=== PATIENT | female | born 1960 | race African-American/Black ===

== ENCOUNTER 2020-05-04 08:01 | Outpatient (REF) | payer MEDICAID, SELFPAY ==
[2020-05-04 09:16] LABS: Estimated Average Glucose 146 mg/dL; Hemoglobin A1c % 6.7 %
[2020-05-04 09:18] LABS: Creatinine Urine 86.85 mg/dL; Microalbumin Urine < 5.0 mg/L
[2020-05-04 09:30] LABS: Alanine Aminotransferase 13 U/L (0-31); Albumin Level 4.3 g/dL (3.5-5.0); Alkaline Phosphatase 77 U/L (39-117); Aspartate Amino Transferase 15 U/L (5-31); Bilirubin Total 0.3 mg/dL (0.0-1.0); Blood Urea Nitrogen 13 mg/dL (9-16); Estimated Glomerular Filt Rate > 60; Glucose Random 122 mg/dL (60-115); HDL Cholesterol 40 mg/dL; Triglycerides 49 mg/dL
[2020-05-04 09:35] LABS: Free T4 (Free Thyroxine) 1.06 ng/dL (0.71-1.85); Vitamin D 25-OH Total 37.9 ng/mL (>30)
[2020-05-04 09:55] LABS: Anion Gap 10 (12-20); Carbon Dioxide 32 mmol/L (22-29); Chloride 102 mmol/L (96-108); Cholesterol 92 mg/dL; LDL Cholesterol Calculated 43 mg/dl; Potassium 4.1 mmol/l (3.3-5.1); Sodium 140 mmol/L (135-145)
== END 2020-05-04 08:02 | disposition home or self-care (01) ==
LOC: HO.LAB 08:01
PROVIDERS: PCP Internal Medicine; Visit Provider Internal Medicine
DX: E11.65 Type 2 diabetes mellitus with hyperglycemia (principal); I10 Essential (primary) hypertension; E78.5 Hyperlipidemia, unspecified; E04.2 Nontoxic multinodular goiter; E03.9 Hypothyroidism, unspecified; E55.9 Vitamin D deficiency, unspecified
CPT/HCPCS: 80053; 80061; 82043; 82306; 83036; 84439; 84443

== ENCOUNTER 2020-06-01 12:38 | Outpatient (REF) | payer MEDICAID, SELFPAY ==
--- NOTE | 2020-06-01 | MM_ITS ---
EXAMINATION: MM SCREENING DIGITAL BREAST TOMOSYNTHESIS, BILATERAL CLINICAL INFORMATION: Screening. Asymptomatic. The lifetime risk of breast cancer based on the Tyrer-Cuzick Model is 13.3%. COMPARISON: Mammography: May 14, 2019 and studies dating back to April 07, 2018 TECHNIQUE: Digital breast tomosynthesis is performed in both the craniocaudal and mediolateral oblique views along with computer-aided detection (CAD). Synthesized 2D images are generated from the tomosynthesis. Bilateral exaggerated craniocaudal views also performed. FINDINGS: The breasts are heterogeneously dense, which may obscure small masses (ACR BI-RADS breast composition Category c). There are no significant masses, abnormal calcifications, or other abnormalities. There is multiplicity and bilaterality of calcifications. MM/MM tomosynthesis screening BI IMPRESSION: There are no significant changes from prior study. ASSESSMENT: BI-RADS 1: Negative RECOMMENDATION: Routine annual mammography screening. This patient's information was entered into a reminder system with a target due date for their next mammogram.
== END 2020-06-01 12:39 | disposition home or self-care (01) ==
LOC: HO.MAMMO 12:38
PROVIDERS: PCP Internal Medicine; Visit Provider Internal Medicine
DX: R92.1 Mammographic calcification found on diagnostic imaging of breast (principal)
CPT/HCPCS: 77063; 77067

== ENCOUNTER → 2020-08-04 13:25 | Outpatient (BNVA) | payer MEDICAID, SELFPAY | PROVIDERS: PCP Internal Medicine; Referring Provider Internal Medicine; Visit Provider Internal Medicine | DX: E11.65 Type 2 diabetes mellitus with hyperglycemia (principal); Z79.4 Long term (current) use of insulin; E78.5 Hyperlipidemia, unspecified; I10 Essential (primary) hypertension; E04.2 Nontoxic multinodular goiter; E03.9 Hypothyroidism, unspecified; E55.9 Vitamin D deficiency, unspecified | CPT/HCPCS: 82947; 99212 ==

== ENCOUNTER 2021-01-03 16:13 | Outpatient (REF) | payer MEDICAID, SELFPAY ==
--- NOTE | ~2021-01-03 | CT_ITS ---
EXAMINATION: CT CHEST WITHOUT CONTRAST CLINICAL INFORMATION: COPD. Follow-up pulmonary nodules. COMPARISON: Previous chest CT scans most recent December 2019 TECHNIQUE: Multidetector volumetric CT imaging of the chest was done. Axial MIP volume rendering provided. Sagittal and coronal reformatted images were obtained. This CT examination was performed using dose optimization techniques as appropriate, variously including the following: *Automated exposure control *Adjustment of mA and/or kV according to patient size (this includes techniques or standardized protocols for targeted exams where dose is matched to indication/reason for exam; i.e. extremities or head) *Use of iterative reconstruction technique DLP: 118 mGy-cm FINDINGS: LUNGS: Exam is limited at the lung bases due to artifact from respiratory motion. There are innumerable bilateral pulmonary nodules that are stable. The largest nodule is calcified and measures 7 mm in the left lower lobe axial image 37 series 4. No new pulmonary nodules are seen. MEDIASTINUM: The mediastinum is normal. PLEURA: There is no pleural effusion. No pleural mass or thickening. AXILLA: No lymphadenopathy. UPPER ABDOMEN: There are small calcifications in the spleen probably related to old granulomatous disease. OSSEOUS STRUCTURES: Unremarkable. CT/CT chest wo con IMPRESSION: Stable pulmonary nodules from previous exam.
== END 2021-01-03 16:14 | disposition home or self-care (01) ==
LOC: HO.CT 16:13
PROVIDERS: Visit Provider Internal Medicine Pulmonary Disease
DX: J44.9 Chronic obstructive pulmonary disease, unspecified (principal)
CPT/HCPCS: 71250

== ENCOUNTER 2021-01-17 10:06 | Outpatient (REF) | payer MEDICAID, SELFPAY ==
[2021-01-17 11:25] LABS: Estimated Average Glucose 160 mg/dL; Hemoglobin A1c % 7.2 %
[2021-01-17 11:44] LABS: Alanine Aminotransferase 13 U/L (0-31); Albumin Level 4.3 g/dL (3.5-5.0); Alkaline Phosphatase 75 U/L (39-117); Anion Gap 14 (12-20); Aspartate Amino Transferase 16 U/L (5-31); Bilirubin Total 0.4 mg/dL (0.0-1.0); Blood Urea Nitrogen 10 mg/dL (9-16); Calcium 9.6 mg/dL (8.4-10.2); Carbon Dioxide 31 mmol/L (22-29); Chloride 101 mmol/L (96-108); Cholesterol 109 mg/dL; Estimated Glomerular Filt Rate > 60; Glucose Random 240 mg/dL (60-115); HDL Cholesterol 45 mg/dL; LDL Cholesterol Calculated 52 mg/dl; Potassium 4.5 mmol/L (3.3-5.1); Sodium 141 mmol/L (135-145); Total Protein 7.1 g/dL (6.5-8.0); Triglycerides 63 mg/dL
[2021-01-17 11:51] LABS: Free T4 (Free Thyroxine) 1.05 ng/dL (0.71-1.85); Thyroid Stimulating Hormone 1.01 uIU/mL (0.32-4.0)
[2021-01-18 08:16] LABS: LDL Cholesterol Direct 43 mg/dL (<100)
== END 2021-01-17 10:07 | disposition home or self-care (01) ==
LOC: HO.LAB 10:06
PROVIDERS: PCP Internal Medicine; Visit Provider Internal Medicine
DX: E11.65 Type 2 diabetes mellitus with hyperglycemia (principal); E03.9 Hypothyroidism, unspecified; Z79.4 Long term (current) use of insulin
CPT/HCPCS: 36415; 80053; 80061; 83036; 83721; 84439; 84443

== ENCOUNTER → 2021-04-07 14:08 | Outpatient (BNVA) | payer MEDICAID, SELFPAY | PROVIDERS: PCP Internal Medicine; Visit Provider Internal Medicine Pulmonary Disease | DX: R91.8 Other nonspecific abnormal finding of lung field (principal); J44.9 Chronic obstructive pulmonary disease, unspecified | CPT/HCPCS: 99212 ==

== ENCOUNTER 2021-06-27 12:17 | Outpatient (REF) | payer MEDICAID, SELFPAY ==
--- NOTE | ~2021-06-27 | MM_ITS ---
EXAMINATION: MM SCREENING DIGITAL BREAST TOMOSYNTHESIS, BILATERAL CLINICAL INFORMATION: Screening. Asymptomatic. The lifetime risk of breast cancer based on the Tyrer-Cuzick Model is 18.3%. COMPARISON: Mammography: 06/01/2020 and studies dating back to 04/07/2018. TECHNIQUE: Digital breast tomosynthesis is performed in both the craniocaudal and mediolateral oblique views along with computer-aided detection (CAD). Synthesized 2D images are generated from the tomosynthesis. FINDINGS: The breasts are heterogeneously dense, which may obscure small masses (ACR BI-RADS breast composition Category c). There is a stable parenchymal pattern of the left breast with no new abnormal dominant mass or suspicious grouping of microcalcifications. Within the superior lateral aspect of the right breast approximately 5 cm from the nipple, there is a 5 x 5 mm well-circumscribed density without calcifications or spiculation which was similar in size on prior examination of 06/01/2020 and measured approximately 5 x 3 mm size on study of 11/11/2018 and likely represents a small cyst. No suspicious grouping of microcalcifications identified. MM/MM tomosynthesis screening BI IMPRESSION: No specific mammographic findings to suggest malignancy. Probable right breast cyst. ASSESSMENT: BI-RADS 2: Benign RECOMMENDATION: Routine annual mammography screening. This patient's information was entered into a reminder system with a target due date for their next mammogram.
== END 2021-06-27 12:18 | disposition home or self-care (01) ==
LOC: HO.MAMMO 12:17
PROVIDERS: PCP Internal Medicine; Visit Provider Internal Medicine
DX: Z12.31 Encounter for screening mammogram for malignant neoplasm of breast (principal)
CPT/HCPCS: 77063; 77067

== ENCOUNTER → 2021-11-20 09:07 | Outpatient (BNVA) | payer MEDICAID, SELFPAY | PROVIDERS: PCP Internal Medicine; Visit Provider Internal Medicine | DX: Z13.89 Encounter for screening for other disorder (principal) ==

== ENCOUNTER 2021-11-23 09:21 | Outpatient (REF) | payer MEDICAID, SELFPAY ==
[2021-11-23 10:25] LABS: Alanine Aminotransferase 15 U/L (0-31); Albumin Level 4.3 g/dL (3.5-5.0); Alkaline Phosphatase 83 U/L (39-117); Anion Gap 13 (12-20); Aspartate Amino Transferase 18 U/L (5-31); Bilirubin Total 0.5 mg/dL (0.0-1.0); Blood Urea Nitrogen 12 mg/dL (9-16); Calcium 9.8 mg/dL (8.4-10.2); Carbon Dioxide 31 mmol/L (22-29); Chloride 99 mmol/L (96-108); Cholesterol 113 mg/dL; Estimated Glomerular Filt Rate > 60; Glucose Random 152 mg/dL (60-115); HDL Cholesterol 43 mg/dL; LDL Cholesterol Calculated 61 mg/dl; Sodium 139 mmol/L (135-145); Total Protein 7.2 g/dL (6.5-8.0); Triglycerides 48 mg/dL
[2021-11-23 10:31] LABS: Creatinine Urine 151.43 mg/dL; Microalbum/Creatinine Ratio Ur 5.9 ug/mg cr
[2021-11-23 10:45] LABS: Estimated Average Glucose 160 mg/dL; Hemoglobin A1c % 7.2 %
[2021-11-23 10:50] LABS: Free T4 (Free Thyroxine) 1.37 ng/dL (0.71-1.85); Thyroid Stimulating Hormone 1.85 uIU/mL (0.32-4.0); Vitamin D 25-OH Total 37.3 ng/mL (>30)
[2021-11-25 11:02] LABS: LDL Cholesterol Direct 53 mg/dL (<100)
== END 2021-11-23 09:22 | disposition home or self-care (01) ==
LOC: HO.LAB 09:21
PROVIDERS: PCP Internal Medicine; Visit Provider Internal Medicine
DX: E11.65 Type 2 diabetes mellitus with hyperglycemia (principal); E55.9 Vitamin D deficiency, unspecified; E03.9 Hypothyroidism, unspecified; E04.2 Nontoxic multinodular goiter; Z79.4 Long term (current) use of insulin
CPT/HCPCS: 36415; 80053; 80061; 82043; 82306; 83036; 83721; 84439; 84443

== ENCOUNTER 2021-12-11 12:32 | Outpatient (REF) | payer MEDICAID, SELFPAY ==
--- NOTE | ~2021-12-11 | US_ITS ---
EXAMINATION: US THYROID CLINICAL INFORMATION: Hypothyroidism, unspecified. COMPARISON: Thyroid ultrasound 01/26/2020 and 08/12/2018. CT soft tissue neck 12/03/2018. Ultrasound-guided thyroid biopsy 09/18/2018. TECHNIQUE: Linear transducer welch-scale and color Doppler examination with attention to the region of the thyroid. FINDINGS: SIZE: Measurements of the left lobe and nodules are given in sagittal, anteroposterior and transverse dimensions respectively. Right Thyroid Lobe: Surgically absent. Left Thyroid Lobe: 3.9 x 1.2 x 1.3 cm, volume 3.3 mL. Previously 3.8 x 1.3 x 1.7 cm, volume 4.4 mL. Parenchyma: The gland echotexture is homogeneous. Thyroid vascularity is normal. Isthmus: 0.3 cm in maximum AP dimension. Previously 0.2 cm. Estimated total number of nodules greater than or equal to 1 cm: 1. Gang Leader nodules are described as follows: 1. Location: Left upper pole. Size: 0.9 x 0.5 x 0.7 cm, volume 0.16 mL. Previously: 0.6 x 0.4 x 0.6 cm, volume 0.06 mL. Nodule characteristics: Composition: Spongiform (0). ACR TI-RADS total points: 0 ACR TI-RADS category: 1 Significant change in size (>/= 20% in 2 dimensions and minimal increase of 2 mm or 50% or greater increase in volume): None Change in features: Not applicable Change in ACR TI-RADS risk category: Not applicable 2. Location: Left upper pole. Size: 0.8 x 0.6 x 0.6 cm, volume 0.13 mL. Previously: 0.8 x 0.6 x 0.8 cm, volume 0.23 mL. Nodule characteristics: Composition: Solid (2). Echogenicity: Hyperechoic (1). Shape: Not taller than wide (0). Margins: Smooth (0). Echogenic Foci: None (0). ACR TI-RADS total points: 3 ACR TI-RADS category: 3 Significant change in size (>/= 20% in 2 dimensions and minimal increase of 2 mm or 50% or greater increase in volume): None Change in features: Not applicable Change in ACR TI-RADS risk category: Not applicable 3. Location: Left mid pole. Size: 1.0 x 0.6 x 1.0 cm, volume 0.28 mL. Previously: 1.1 x 0.6 x 0.8 cm, volume 0.28 mL. Nodule characteristics: Composition: Spongiform (0). ACR TI-RADS total points: 0 ACR TI-RADS category: 1 Significant change in size (>/= 20% in 2 dimensions and minimal increase of 2 mm or 50% or greater increase in volume): None Change in features: Not applicable Change in ACR TI-RADS risk category: Not applicable 4. Location: Left mid pole. Size: 0.6 x 0.4 x 0.6 cm, volume 0.08 mL. Previously: 0.8 x 0.5 x 0.7 cm, volume 0.13 mL. Nodule characteristics: Composition: Spongiform (0). ACR TI-RADS total points: 0 ACR TI-RADS category: 1 Significant change in size (>/= 20% in 2 dimensions and minimal increase of 2 mm or 50% or greater increase in volume): None Change in features: Not applicable Change in ACR TI-RADS risk category: Not applicable RIGHT THYROIDECTOMY BED: No focal lesion seen. NODES: No lymphadenopathy is seen in the tissue surrounding the thyroid gland. US/US thyroid IMPRESSION: Right thyroid lobe surgically removed. Small subcentimeter nodules in the left lobe, as described above, are nonsuspicious at this time based on ACR TI-RADS criteria. ACR TI-RADS RECOMMENDATION REFERENCE: Ultrasound-guided fine-needle aspiration, followup ultrasound, no further follow up. * TR1 (0 point) and TR 2 (2 points): No FNA or follow up * TR3 (3 points): FNA if more than or equal to 2.5 cm in maximum dimension, followup ultrasound in 1, 3 and 5 years if 1.5 to 2.4 cm in maximum dimension. * TR4 (4-6 points): FNA if more than or equal to 1.5 cm in maximum dimension, followup ultrasound in 1, 2, 3 and 5 years if 1 to 1.4 cm in maximum dimension. * TR5 (more than or equal to 7 points): FNA if more than or equal to 1 cm in maximum dimension, followup ultrasound every year for 5 years if 0.5 to 0.9 cm in maximum dimension. * TR3, TR4 or TR5 nodules that are below the size threshold for follow up receive no follow up.
== END 2021-12-11 12:33 | disposition home or self-care (01) ==
LOC: HO.US 12:32
PROVIDERS: PCP Internal Medicine; Visit Provider Internal Medicine
DX: E04.2 Nontoxic multinodular goiter (principal); E03.9 Hypothyroidism, unspecified
CPT/HCPCS: 76536

== ENCOUNTER 2022-01-28 12:57 | Emergency (ER) | payer MEDICAID, SELFPAY ==
[2022-01-28 13:39] VITALS: BP 130/63; PULSE 86; RESP 18; TEMP 36.1; O2SAT 98; BMI 24.4
--- NOTE | 2022-01-28 18:01 | ED.EXTPRO ---
HPI - Extremity Problem General Chief complaint: Extremity Problem Stated complaint: shoulder pain rad. to L arm Time Seen by Provider: 01/28/22 17:44 History of Present Illness HPI Narrative: Patient complains of left-sided neck left trapezius pain radiating down left arm to the fingers with paresthesias but no numbness no loss of sensation no weakness no new injury no fevers She has had this problem off and on for some time and had a nerve conduction study done results of which she said showed a pinched nerve Related Data Home Medications Medication Instructions Recorded Confirmed cholecalciferol (vitamin D3) 25 25 mcg PO DAILY 08/04/20 11/20/21 mcg (1,000 unit) capsule gabapentin 300 mg capsule 300 mg PO BEDTIME 08/04/20 11/20/21 lisinopril 10 mg tablet 10 mg PO DAILY 08/04/20 11/20/21 metformin 1,000 mg tablet 1,000 mg PO BID 08/04/20 11/20/21 Previous Rx's Medication Instructions Recorded pen needle, diabetic 32 gauge x #100 ea 06/08/2008/01 (BD Ultra-Fine Micro Pen Needle) albuterol sulfate 90 mcg/actuation 2 puff PO Q2H PRN for wheezing 02/13/21 aerosol inhaler (ProAir HFA) #8.5 grams insulin aspart U-100 100 unit/mL See Rx Instructions subcut 06/20/21 (3 mL) subcutaneous pen (Novolog .COMPLEX 30 days #30 mL Flexpen U-100 Insulin aspart) insulin glargine 100 unit/mL (3 14 unit (0.14 mL) subcut DAILY 30 06/20/21 mL) subcutaneous pen (Lant days #4.2 mL Solostar U-100 Insulin) lancets 33 gauge (TRUEplus Lancets) 1 gauge miscellaneous QID for 09/20/21 diabetes mellitus 30 days #100 ea blood sugar diagnostic (FreeStyle 1 strip miscellaneous QID for 10/03/21 Lite Strips) diabetes mellitus 30 days #150 strips atorvastatin 40 mg tablet 40 mg PO DAILY 30 days #30 tabs 12/14/21 levothyroxine 50 mcg tablet 50 mcg PO DAILY 30 days #30 tabs 12/14/21 acetaminophen 500 mg tablet 1,000 mg PO QID PRN pain #30 tabs 01/28/22 cyclobenzaprine 5 mg tablet 5 mg PO TID PRN muscle spasm #10 01/28/22 tabs oxycodone 5 mg tablet 5 mg PO Q6H PRN pain #14 tabs 01/28/22 Allergies Allergy/AdvReac Type Severity Reaction Status Date / Time meperidine [From DEMEROL] Allergy Intermediate HALLUCINATI Verified 01/28/22 13:39 ONS Review of Systems Review of Systems: Positive for left-sided neck pain with tingling radiating to fingers Negatives are no fever no chills no dizziness no weakness no headache no loss of sensation no muscle weakness no difficulty walking, no chest pain no shortness of breath no abdominal pain no nausea vomiting no changes to bowel or bladder no dysuria no frequency no incontinence, no skin rash Yes all other systems are reviewed and are negative [facility] Past Medical History Source: nursing notes reviewed Medical History HLD (hyperlipidemia) HTN (hypertension) Hypothyroidism Multinodular thyroid T2DM (type 2 diabetes mellitus) Vitamin D deficiency Surgical History History of thyroid surgery Hx of colonoscopy Hx of eye surgery Hx of hand surgery Hx of tubal ligation Family History Family History Father Diabetes CVD (cardiovascular disease) Myocardial infarction Mother Diabetes CVD (cardiovascular disease) Social History Social History Advance Directives: No Advance Directives Information Provided: Yes Physical Exam Vital Signs: Vital Signs: Last Vital Signs Temp 97.0 F 01/28/22 13:39 Pulse 86 01/28/22 13:39 Resp 18 01/28/22 13:39 BP 130/63 01/28/22 13:39 Pulse Ox 98 01/28/22 13:39 BMI result Body Mass Index 24.4 General appearance no distress Head is normocephalic atraumatic Neck is limited range of motion with tenderness on the left trapezius and left lateral neck no midline bony tenderness, skin of the neck is normal no rash Chest clear to auscultation bilateral Heart no murmur Abdomen soft nontender Extremities full range of motion x4 Neuro neurobiologist strength is 5/5 symmetrical both hands Sensation is full intact and symmetrical in both hands, gait and balance are normal, motor is 5/5 x4 in all extremities Course Course Course Narrative: Patient with history of cervical radiculopathy is treated with pain medicine and muscle relaxer, no neurologic deficits no changes to bowel or bladder no acute injury and she will follow with her doctor Discharge Plan Discharge Clinical Impression: Cervical radiculopathy Patient Disposition: Home, Self-Care Additional Instructions: Pain going from left neck down arm is probably a pinched nerve in your neck Follow with primary doctor Return any time for any muscle weakness any worse condition any concerns Prescriptions: New acetaminophen 500 mg tablet 1,000 mg PO QID PRN (Reason: pain) Qty: 30 0RF cyclobenzaprine 5 mg tablet 5 mg PO TID PRN (Reason: muscle spasm) Qty: 10 0RF oxycodone 5 mg tablet 5 mg PO Q6H PRN (Reason: pain) Qty: 14 0RF Rx Instructions: Partial Fill upon patient request. Narcotic medication will cause drowsiness no driving for 6 hours after taking No Action (DME) pen needle, diabetic [BD Ultra-Fine Micro Pen Needle] 32 gauge x 1/4 needle See Rx Instructions .ROUTE .MEDSUPPLY Qty: 100 11RF Rx Instructions: 4x daily albuterol sulfate [ProAir HFA] 90 mcg/actuation HFA aerosol inhaler 2 puff PO Q2H PRN (Reason: for wheezing) Qty: 8.5 6RF Lantus Solostar U-100 Insulin 100 unit/mL (3 mL) insulin pen 14 unit subcut DAILY 30 Days Qty: 4.2 11RF insulin aspart U-100 [Novolog Flexpen U-100 Insulin] 100 unit/mL (3 mL) insulin pen See Rx Instructions subcut .COMPLEX 30 Days Qty: 30 11RF Rx Instructions: 4 units with breakfast, 6 units with lunch, 9 units with dinner and 2 units with snacks. use up to 5 times daily subcut; lancets [TRUEplus Lancets] 33 gauge misc 1 gauge miscellaneous QID 30 Days Qty: 100 11RF FreeStyle Lite Strips Strip 1 strip miscellaneous QID 30 Days Qty: 150 11RF atorvastatin 40 mg tablet 40 mg PO DAILY 30 Days Qty: 30 11RF levothyroxine 50 mcg tablet 50 mcg PO DAILY 30 Days Qty: 30 11RF metformin 1,000 mg tablet 1,000 mg PO BID lisinopril 10 mg tablet 10 mg PO DAILY cholecalciferol (vitamin D3) 25 mcg (1,000 unit) capsule 25 mcg PO DAILY gabapentin 300 mg capsule 300 mg PO BEDTIME Interventions: ED Discharge Assessment Last Done: 01/28/22 18:47 Discharge Date/Time: 01/28/22 18:49
== END 2022-01-28 18:49 | disposition home or self-care (01) ==
PROVIDERS: Emergency Provider Emergency Medicine Emergency Medical Services; PCP Internal Medicine
DX: M54.2 Cervicalgia (principal); M79.602 Pain in left arm; Z79.899 Other long term (current) drug therapy
CPT/HCPCS: 99282; 99283

== ENCOUNTER 2022-02-08 08:17 | Outpatient (REF) | payer MEDICAID, SELFPAY | END 2022-02-08 08:18 | disposition home or self-care (01) | LOC: HO.LAB 08:17 | PROVIDERS: Visit Provider Obstetrics & Gynecology | DX: R87.810 Cervical high risk human papillomavirus (HPV) DNA test positive (principal) | CPT/HCPCS: 57454; 88305 ==

== ENCOUNTER → 2022-03-06 13:50 | Outpatient (BNVA) | payer MEDICAID, SELFPAY | PROVIDERS: PCP Internal Medicine; Visit Provider Obstetrics & Gynecology | DX: R87.810 Cervical high risk human papillomavirus (HPV) DNA test positive (principal); Z71.2 Person consulting for explanation of examination or test findings | CPT/HCPCS: 99212 ==

== ENCOUNTER 2022-03-13 16:14 | Outpatient (REF) | payer MEDICAID, SELFPAY ==
--- NOTE | ~2022-03-13 | CT_ITS ---
EXAMINATION: CT CHEST WITHOUT CONTRAST CLINICAL INFORMATION: Abnormal findings of lung field. COMPARISON: None CT chest 01/03/2021. TECHNIQUE: Multidetector volumetric CT imaging of the chest was done. Axial MIP volume rendering provided. Sagittal and coronal reformatted images were obtained. This CT examination was performed using dose optimization techniques as appropriate, variously including the following: *Automated exposure control *Adjustment of mA and/or kV according to patient size (this includes techniques or standardized protocols for targeted exams where dose is matched to indication/reason for exam; i.e. extremities or head) *Use of iterative reconstruction technique DLP: 146 mGy-cm FINDINGS: AIR BRAKE RIGGER: Moderately expanded lungs. LUNGS: There are multiple bilateral lung nodules. Some of the largest nodules are mentioned below. A 4 mm noncalcified nodule right upper lobe axial image 118/7, 8mm calcified nodule left lower lobe axial image 267/7. MEDIASTINUM: The thyroid lobes are symmetrical. The central trachea and the bronchi are widely patent. Heart size and the great vessels are normal caliber. No abnormal size mediastinal or hilar lymphadenopathy seen. PLEURA: There is no pleural effusion. No pleural mass or thickening. AXILLA: No lymphadenopathy. UPPER ABDOMEN: Visualized liver, spleen and bilateral adrenal glands unremarkable. OSSEOUS STRUCTURES: No lytic or sclerotic process seen. CT/CT chest wo con IMPRESSION: Multiple calcified and noncalcified nodules. The largest noncalcified nodule is 8 mm left lower lobe previously measured 7 mm. No new nodules seen. No abnormal mediastinal or axillary lymphadenopathy. Fleischner guidelines were followed.
== END 2022-03-13 16:15 | disposition home or self-care (01) ==
LOC: HO.CT 16:14
PROVIDERS: Visit Provider Internal Medicine Pulmonary Disease
DX: R91.8 Other nonspecific abnormal finding of lung field (principal)
CPT/HCPCS: 71250

== ENCOUNTER → 2022-04-03 11:15 | Outpatient (BNVA) | payer MEDICAID, SELFPAY | PROVIDERS: PCP Internal Medicine; Visit Provider Surgery | DX: D17.1 Benign lipomatous neoplasm of skin and subcutaneous tissue of trunk (principal) | CPT/HCPCS: 99202 ==

== ENCOUNTER 2022-05-08 13:43 | Outpatient (REF) | payer MEDICAID, SELFPAY ==
[2022-05-08 13:49] VITALS: BP 140/54; PULSE 100; RESP 16; TEMP 36.2; O2SAT 97
[2022-05-08 13:52] VITALS: BMI 25.3
[2022-05-08 14:45] VITALS: BP 138/73; PULSE 90; RESP 16; O2SAT 97
--- NOTE | 2022-05-08 14:47 | W.PM.OPN ---
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 Operative findings: 2 cm lipoma posterior shoulder Specimen: lipoma posterior shoulder Estimated blood loss: less than 1 mL Complications: non Procedure details: patient was brought to the minor surgery suite placed in a right lateral decubitus position. The site of surgery confirmed by the patient in the left posterior shoulder. After assuring informed consent the skin was prepped with Betadine and draped in a sterile fashion. Local anesthesia was then infiltrated over previous incision in a transverse fashion. This is then incised with the scalpel carried down to the subcutaneous tissue. The lipoma was immediately identified. Metzenbaum scissors was used to dissect the lipoma from the surrounding subcutaneous tissue. The lesion was passed off the table and sent to pathology for further examination. Deep subcutaneous tissue was reapproximated using interrupted 3-0 Polysorb sutures. Dermis was reapproximated using interrupted 3-0 Polysorb sutures. Skin was then closed using a running subcuticular 4-0 Polysorb suture. Steri-Strips, 2 x 2 gauze and Tegaderm were then applied. The patient tolerated the procedure well. She was discharged to home in stable condition.
== END 2022-05-08 13:44 | disposition home or self-care (01) ==
LOC: HO.MS 13:43
PROVIDERS: PCP Internal Medicine; Visit Provider Surgery
PROC: (CPT 23075; principal; 2022-05-08 14:10)
DX: D17.1 Benign lipomatous neoplasm of skin and subcutaneous tissue of trunk (principal)
CPT/HCPCS: 23075; 88304

== ENCOUNTER → 2022-05-15 12:57 | Outpatient (BNVA) | payer MEDICAID, SELFPAY | PROVIDERS: PCP Internal Medicine; Visit Provider Surgery | DX: Z48.817 Encounter for surgical aftercare following surgery on the skin and subcutaneous tissue (principal); Z87.2 Personal history of diseases of the skin and subcutaneous tissue | CPT/HCPCS: 99211 ==

== ENCOUNTER 2022-07-05 14:04 | Outpatient (REF) | payer MEDICAID, SELFPAY ==
[2022-07-05 17:12] LABS: Alanine Aminotransferase 14 U/L (0-31); Albumin Level 4.3 g/dL (3.5-5.0); Alkaline Phosphatase 87 U/L (39-117); Anion Gap 13 (12-20); Aspartate Amino Transferase 15 U/L (5-31); Bilirubin Total 0.2 mg/dL (0.0-1.0); Blood Urea Nitrogen 14 mg/dL (9-16); Calcium 9.5 mg/dL (8.4-10.2); Carbon Dioxide 30 mmol/L (22-29); Chloride 103 mmol/L (96-108); Estimated Glomerular Filt Rate > 60; Free T4 (Free Thyroxine) 1.07 ng/dL (0.71-1.85); Glucose Random 108 mg/dL (60-115); Potassium 4.5 mmol/L (3.3-5.1); Sodium 141 mmol/L (135-145)
== END 2022-07-05 14:05 | disposition home or self-care (01) ==
LOC: HO.LAB 14:04
PROVIDERS: PCP Internal Medicine; Visit Provider Internal Medicine
DX: E11.65 Type 2 diabetes mellitus with hyperglycemia (principal); E03.9 Hypothyroidism, unspecified; E04.2 Nontoxic multinodular goiter; E78.5 Hyperlipidemia, unspecified; E55.9 Vitamin D deficiency, unspecified; I10 Essential (primary) hypertension; Z79.4 Long term (current) use of insulin
CPT/HCPCS: 36415; 80053; 82947; 83036; 84439; 84443; 99212

== ENCOUNTER 2022-07-24 12:59 | Outpatient (REF) | payer MEDICAID, SELFPAY ==
[2022-07-24 13:05] VITALS: BP 137/61; PULSE 83; RESP 16; TEMP 37.2; O2SAT 98
[2022-07-24 13:06] VITALS: BMI 24.4
[2022-07-24 13:53] VITALS: BP 138/68; PULSE 80; RESP 16; O2SAT 95
--- NOTE | 2022-07-24 16:20 | W.PM.OPN ---
Operative Note Operative Note Date of Service: 07/24/22 Narrative: Preoperative diagnosis: Lipoma x2 left arm Postoperative diagnosis: Same Procedure: Excision of lipoma x2 left arm Surgeon: Florentin Gomez MD Manager Multicultural: None Anesthesia: Sensorcaine 0.5% with epinephrine Indications for procedure: 61-year-old female patient with complaints of left shoulder pain and 2 palpable soft tissue subcutaneous nodules suggestive of lipomas located in the right arm including 1 in the upper arm and a 2nd in the medial forearm. Both measure approximately 1.5 cm in diameter. Operative findings: Lipoma of left arm x2 each measuring 1.5 cm Specimen: Lipoma x2 left arm Estimated blood loss: Less than 1 mL Complications: None Procedure details: Patient was brought to the minor surgery suite placed in a supine position. The site of surgery was confirmed by the patient in the left arm and circled with a skin scribe. After assuring informed consent with a packaging line attendant, the skin was prepped with Betadine and draped in a sterile fashion. Beginning with the forearm lesion local anesthesia was infiltrated into the skin and a longitudinal incision measuring approximately 1.5 cm was made with the 15 blade scalpel. Incision was carried out through subcutaneous tissue up to the lipoma anterior surface. This was then grasped with a Allis clamp. The lipoma was then sharply dissected using a Metzenbaum scissors from the surrounding subcutaneous tissue. The lesion was excised and sent to pathology for further examination. After assuring adequate hemostasis the skin was closed using a running subcuticular 5 0 Polysorb suture. Steri-Strips and Tegaderm were then applied. Attention was then directed to the upper arm lesion on the left side. This was located more posterior. The skin was re-prepped with Betadine and draped in a sterile fashion. Local anesthesia was then infiltrated in a longitudinal fashion over the lipoma. Incision was then made with a 15 blade and carried out through subcutaneous tissue. The lipoma was identified and grasped with an Allis clamp. Sharp dissection was then used to dissect the lesion from the surrounding subcutaneous tissue. This was passed off the table and sent to pathology for further examination. After assuring adequate hemostasis the skin was closed using a subcuticular 5 0 Polysorb suture. Steri-Strips, 2 x 2 gauze and Tegaderm were then applied. The patient tolerated the procedure well. She was discharged to home in stable condition.
== END 2022-07-24 13:00 | disposition home or self-care (01) ==
LOC: HO.MS 12:59
PROVIDERS: PCP Internal Medicine; Visit Provider Surgery
PROC: (CPT 25075; principal; 2022-07-24 13:00)
DX: D17.22 Benign lipomatous neoplasm of skin and subcutaneous tissue of left arm (principal)
CPT/HCPCS: 25075; 24075; 88304

== ENCOUNTER → 2022-08-02 09:45 | Outpatient (BNVA) | payer MEDICAID, SELFPAY | PROVIDERS: PCP Internal Medicine; Referring Provider Internal Medicine; Visit Provider Physician Assistant Surgical | DX: Z48.89 Encounter for other specified surgical aftercare (principal) | CPT/HCPCS: 99211 ==

== ENCOUNTER → 2022-09-03 11:45 | Outpatient (BNVA) | payer MEDICAID, SELFPAY | PROVIDERS: PCP Internal Medicine; Visit Provider Internal Medicine | DX: E04.2 Nontoxic multinodular goiter (principal) | CPT/HCPCS: 99212 ==

== ENCOUNTER 2022-10-12 10:00 | Outpatient (RCR) | payer MEDICAID, SELFPAY ==
[2022-09-06 10:11] VITALS: BP 133/77; PULSE 88
== END 2022-10-12 15:13 | disposition home or self-care (01) ==
LOC: HO.PT 10:00
PROVIDERS: PCP Internal Medicine; Visit Provider Registered Nurse
DX: M25.512 Pain in left shoulder (principal)
CPT/HCPCS: 97110; 97112; 97140; 97161; 97530

== ENCOUNTER 2022-11-22 13:00 | Outpatient (RCR) | payer MEDICAID, SELFPAY | END 2022-12-05 10:30 | disposition home or self-care (01) | LOC: HO.OT 13:00 | PROVIDERS: PCP Registered Nurse; Visit Provider Registered Nurse | DX: M25.541 Pain in joints of right hand (principal); M25.542 Pain in joints of left hand | CPT/HCPCS: 97035; 97110; 97140; 97167; 97760 ==

== ENCOUNTER 2022-12-07 08:12 | Outpatient (REF) | payer MEDICAID, SELFPAY ==
--- NOTE | ~2022-12-07 | XR_ITS ---
EXAMINATION: XR SHOULDER, LEFT CLINICAL INFORMATION: Pain COMPARISON: Previous x-ray December 2018 TECHNIQUE: Three views of the left shoulder. FINDINGS: The bones and soft tissues are normal. No fracture. Glenohumeral and acromioclavicular alignment is anatomic with normal joint space. No abnormal soft tissue calcifications. XR/XR shoulder LT min 2V IMPRESSION: Normal left shoulder.
== END 2022-12-07 08:13 | disposition home or self-care (01) ==
LOC: HO.HOSX 08:12
PROVIDERS: Visit Provider Physician Assistant
DX: M54.12 Radiculopathy, cervical region (principal)
CPT/HCPCS: 73030; 99212

== ENCOUNTER 2023-01-30 08:25 | Outpatient (REF) | payer MEDICAID, SELFPAY | END 2023-01-30 08:26 | disposition home or self-care (01) | LOC: HO.NEURO 08:25 | PROVIDERS: PCP Registered Nurse; Visit Provider Physician Assistant | DX: M54.12 Radiculopathy, cervical region (principal) | CPT/HCPCS: 95885; 95910 ==

== ENCOUNTER 2023-02-06 13:04 | Outpatient (AMB) | payer MEDICAID, SELFPAY ==
[2023-02-06 13:14] VITALS: BMI 24.4
--- NOTE | 2023-02-06 13:14 | MHC.OFFVIS ---
Intake Vital Signs 02/06/23 13:14 Height 5 ft 3 in Weight 138 lb BMI 24.4 Intake Visit Reasons: New Prob- Trigger middle finger of right hand Intake Note: Renetta 62 yr old right hand dominant female, presents today for her right middle finger. States she is having locking of her finger for many years now. States she had a trigger release 12 yrs ago and is still having pain in finger. States her pain is severe and locks very frequently. REports swelling due to locking and popping it back often. Patients states she is scare of having surgery due to con't pain from her 1st trigger release. Patient is diabetic. Last A1C done 06/2022 was a 6.6. Allergies meperidine [From DEMEROL] Allergy (Intermediate, Verified 02/06/23 13:18) HALLUCINATIONS HPI New Prob- Trigger middle finger of right hand HPI Details Renetta is a 62 year old right hand dominant Vietnamese speaking woman who presents with complaint of of several years painful locking of the right middle finger. She reports a hx of left middle finger trigger release in ~2010, perhaps earlier. She says her right middle finger continues to lock painfully, and gets swollen at times due to this.She says she has tried OT hands therapy and was told to not bend her finger anymore due to her locking. She complains of multiple pain generators in her body, especially her left shoulder and neck. She says she has a nerve impingement in her shoulder which she thinks was caused by her left middle trigger finger release. She is unsure about having surgery again as she is scared of developing any new pain. She is a Diabetic, this is well-controlled [facility] Medical History HLD (hyperlipidemia) HTN (hypertension) Hypothyroidism Multinodular thyroid T2DM (type 2 diabetes mellitus) Vitamin D deficiency Surgical History History of excision of mass (05/08/22) History of lipoma History of thyroid surgery Hx of colonoscopy Hx of eye surgery Hx of hand surgery Hx of tubal ligation Family History Father Diabetes CVD (cardiovascular disease) Myocardial infarction Mother Diabetes CVD (cardiovascular disease) Social History Household Members Other:: son Housing: Apartment Alcohol intake: never Patient Tobacco Use Status: Current everyday Tobacco user Tobacco use type: Cigarette Cigarettes Per Day: 8 Years Smoked: 40 Sexual orientation: Straight/Heterosexual Gender identity: Female Review of Systems Const All systems reviewed & are unremarkable except as noted in HPI and below Physical Exam Vital Signs: BMI result Body Mass Index 24.4 Const General: cooperative, healthy appearing and no acute distress Orientation/consciousness: patient oriented x3 HEENT Head: Yes normocephalic and Yes atraumatic Eyes EOM: EOMs intact bilaterally Resp Effort & Inspection: normal respiratory effort and able to speak in complete sentences Cardio Jugular venous distension: no JVD Skin General skin exam: turgor normal Rashes: no rashes Neuro General: patient oriented x3 Extrem Other: Evaluation of Right Upper Extremity: The patient is alert, oriented, and in no acute distress Neuro: Median, Ulnar, Radial nerves motor and sensory intact and sensation is normal to the tips of all digits Vascular: Cap refill brisk ROM: She can make a fist and extend all her digits Visible and palpable locking and catching of the middle finger Tender over the a1 edilson of the middle finger Skin: No lacerations or abrasions. General: No Ecchymosis. No Erythema or evidence of infection. Nerve Conduction Study: Impression: Normal motor and sensory NCS if upper extremity with no evidence of carpal tunnel syndrome or cubital tunnel syndrome Normal EMG of the left C5-T1 innervated muscles Dr. Norris 01/30/23 Psych Appearance: grossly normal Affect: normal affect Attitude: cooperative Assessment & Plan Assessment & Plan (1) Trigger middle finger of right hand: Code(s): M65.331 - Trigger finger, right middle finger (2) T2DM (type 2 diabetes mellitus): Code(s): E11.9 - Type 2 diabetes mellitus without complications Qualifiers: Diabetes mellitus complication status: with hyperglycemia Diabetes mellitus [facility] insulin use: with termite control technician use Qualified Code(s): E11.65 - Type 2 diabetes mellitus with hyperglycemia; Z79.4 - alf (current) use of insulin Plan Assessment & Plan: 1. Right middle finger trigger finger I educated her about this condition I discussed operative and non-operative treatment options The patient would like to proceed with surgery. The risks and benefits of operative treatment were discussed with the patient and the patient wishes to proceed with surgery. These risks include, but are not limited to risk of damage to blood vessels, nerves, tendons, infection, recurrence, incomplete relief of preoperative symptoms, persistent pain, possible need for further surgery and the risks associated with regional blocks and anesthesia. The plan is to take the patient to the operating room sometime in the next few weeks for the following procedures: 1. Right middle trigger finger release, under local All of the preoperative paperwork including the consent was filled out today. All the patient's questions were answered. The patient understands that they will be contacted by our dental scheduler soon to schedule this procedure She denies blood thinners, asthma, heart, lung, kidney issues She is a Diabetic, her most recent HgA1c from 06/2022 was 6.6%. She will need an updated A1c that is <8.0% 2. History of left middle trigger finger, S/P release DOS: ~2010, but may be earlier as the patient is unsure. No locking or catching Scribed for Deb Christina MD by Simeon Jurado, center medical and lab director, on [ ] at [ ], EST. Coding Level of Care Code Est Pt Level 4 (90764) Diagnoses Trigger middle finger of right hand M65.331 T2DM (type 2 diabetes mellitus) E11.65; Z79.4 Diabetes mellitus complication status: with hyperglycemia Diabetes mellitus [facility] insulin use: with termite control technician use
== END 2023-02-06 13:38 | disposition home or self-care (01) ==
PROVIDERS: PCP Registered Nurse; Visit Provider Orthopaedic Surgery
DX: M65.331 Trigger finger, right middle finger (principal); E11.65 Type 2 diabetes mellitus with hyperglycemia; Z79.4 Long term (current) use of insulin
CPT/HCPCS: 99214

== ENCOUNTER → 2023-02-06 13:04 | Outpatient (BNVA) | payer MEDICAID, SELFPAY | PROVIDERS: PCP Registered Nurse; Visit Provider Orthopaedic Surgery | DX: M65.331 Trigger finger, right middle finger (principal); E11.65 Type 2 diabetes mellitus with hyperglycemia; Z79.4 Long term (current) use of insulin | CPT/HCPCS: 99212 ==

== ENCOUNTER 2023-02-14 11:17 | Day surgery (SDC) | payer MEDICAID, SELFPAY ==
--- NOTE | 2023-02-14 10:26 | W.PM.OPN ---
Operative Note Operative Note Date of Service: 02/14/23 Narrative: Operative Note Preop diagnosis: 1. right middle finger Trigger finger Postop diagnosis: 1. right middle finger Trigger finger Procedure: 1. right middle finger A1 edilson release Surgeon: Deb Christina MD Anesthesia: local block using 1% lidocaine with epinephrine Findings: No locking or catching after A1 edilson release EBL: Less than 5 mL Tourniquet time: None Specimens: None Complications: None Disposition: Brought to recovery room in stable condition Plan: Follow-up for 10-14 days for wound check and suture removal Indications: The patient is 62 years old, with a right middle finger trigger finger that has been unresponsive to nonoperative management. The risks and benefits of operative treatment including but not limited to risk of damage to blood vessels, nerves, tendons, infection, persistent pain, persistent symptoms, recurrence or possible need for additional surgery were discussed with the patient and the patient wishes to proceed with surgery. Procedure: Once consent was obtained a local block was performed in the preop area using a combination of 1% lidocaine with epinephrine. The patient was then brought back to the operating suite and placed on the operative table in supine position. The right upper extremity was prepped and draped in a standard surgical fashion. Once assured that we had a good block, a 1.5 cm oblique incision was made centered over the A1 edilson of the right middle finger . The incision was made through the skin to the subcutaneous tissues using a #15 blade. Careful dissection was made down to the level of the A1 edilson using tenotomy scissors, with care being taken to protect the nearby neurovascular structures. A longitudinal incision was made in the A1 edilson 1st using a #15 blade, then using tenotomy scissors under direct visualization. The A1 edilson was noted to be thickened. Following our A1 edilson release, we no longer saw any locking or catching of the digit with flexion and extension. Once satisfied with our A1 edilson release the wound was copiously irrigated with normal saline and hemostasis was obtained with a brief period of local pressure. The skin edges were reapproximated with some 5.0 nylon suture material and a sterile dressing was applied. The patient appears to have tolerated the procedure well and with no complications. All digits were well vascularized at the conclusion of the case.
--- NOTE | 2023-02-14 12:36 | MHC.SHP ---
Pre-Procedural Eval Section A Date of Service: 02/14/23 The patient is an INPATIENT: No Changes since office visit: No Cold of Flu in the past 2 weeks, No New Medical Problems, No Changes in Medication and No Patient answered all questions The History & Physical has been completed within 30 days and I have reviewed it.: Yes Section B Chief Complaint: Trigger finger, right middle finger Allergies: Allergies Allergy/AdvReac Type Severity Reaction Status Date / Time meperidine [From DEMEROL] Allergy Intermediate HALLUCINATI Verified 02/06/23 13:18 ONS Plan I have reviewed the history and physical and performed a pertinent physical examination on my patient. No changes have occurred unless specified. Time Spent With Patient Time: Total time managing care of this patient today ____ minutes.
[2023-02-14 12:39] VITALS: BMI 27.8
[2023-02-14 14:28] VITALS: BP 133/70; PULSE 69; RESP 18; O2SAT 96
== END 2023-02-14 14:42 | disposition home or self-care (01) ==
PROVIDERS: PCP Registered Nurse; Visit Provider Orthopaedic Surgery
PROC: (CPT 26055; principal; 2023-02-14 13:10)
DX: M65.331 Trigger finger, right middle finger (principal); I10 Essential (primary) hypertension; E11.65 Type 2 diabetes mellitus with hyperglycemia; Z79.4 Long term (current) use of insulin; Z88.5 Allergy status to narcotic agent
CPT/HCPCS: 26055; J0171

== ENCOUNTER → 2023-02-14 11:17 | Outpatient (BNV) | payer MEDICAID, SELFPAY | PROVIDERS: PCP Registered Nurse; Visit Provider Orthopaedic Surgery | DX: M65.331 Trigger finger, right middle finger (principal) | CPT/HCPCS: 26055 ==

== ENCOUNTER 2023-02-22 11:20 | Outpatient (REF) | payer MEDICAID, SELFPAY ==
--- NOTE | ~2023-02-22 | US_ITS ---
EXAMINATION: BREAST ULTRASOUND SCREENING BILATERAL CLINICAL INFORMATION: Screening. Diffuse bilateral breast pain which is chronic. Patient declined screening mammogram. COMPARISON: No recent previous examinations for comparison. TECHNIQUE: Both breasts were scanned with grayscale and color Doppler sonography. FINDINGS: The left breast is sonographically normal. In the right breast, there are a few, scattered, subcentimeter cysts which are benign. Both axillae normal. US/US breast RT complete mammo IMPRESSION: No sonographic evidence of malignancy. The patient is encouraged to have an annual screening mammogram which she can tolerate it. ASSESSMENT: BI-RADS BI-RADS 2 - Benign Findings RECOMMENDATION: Routine annual mammography screening. 1 year F/U This examination should not preclude the clinical evaluation of a suspicious palpable abnormality. This patient's information was entered into a reminder system with a target due date for their next mammogram.
--- NOTE | ~2023-02-22 | US_ITS ---
EXAMINATION: BREAST ULTRASOUND SCREENING BILATERAL CLINICAL INFORMATION: Screening. Diffuse bilateral breast pain which is chronic. Patient declined screening mammogram. COMPARISON: No recent previous examinations for comparison. TECHNIQUE: Both breasts were scanned with grayscale and color Doppler sonography. FINDINGS: The left breast is sonographically normal. In the right breast, there are a few, scattered, subcentimeter cysts which are benign. Both axillae normal. US/US breast LT complete mammo IMPRESSION: No sonographic evidence of malignancy. The patient is encouraged to have an annual screening mammogram which she can tolerate it. ASSESSMENT: BI-RADS BI-RADS 2 - Benign Findings RECOMMENDATION: Routine annual mammography screening. 1 year F/U This examination should not preclude the clinical evaluation of a suspicious palpable abnormality. This patient's information was entered into a reminder system with a target due date for their next mammogram.
== END 2023-02-22 11:21 | disposition home or self-care (01) ==
LOC: HO.MAMMO 11:20
PROVIDERS: PCP Registered Nurse; Visit Provider Registered Nurse
DX: Z12.39 Encounter for other screening for malignant neoplasm of breast (principal)
CPT/HCPCS: 76641

== ENCOUNTER → 2023-02-22 12:00 | Outpatient (BNV) | payer MEDICAID, SELFPAY | PROVIDERS: PCP Registered Nurse; Visit Provider Radiology Diagnostic Radiology | DX: N64.4 Mastodynia (principal) | CPT/HCPCS: 76641 ==

== ENCOUNTER 2023-02-27 13:12 | Outpatient (AMB) | payer MEDICAID, SELFPAY ==
[2023-02-27 13:24] VITALS: BMI 27.8
--- NOTE | 2023-02-27 13:24 | MHC.OFFVIS ---
Intake Vital Signs 02/27/23 13:24 Height 5 ft 3 in Weight 157 lb BMI 27.8 Intake Visit Reasons: PO RT MF Trigger Release 02/14/23AR/EMG rev Intake Note: Renetta 62 yr old female presents today for her P/O visit for her right MF trigger release and also to have her EMG review. States she is not able to make a full close fist. Allergies meperidine [From DEMEROL] Allergy (Intermediate, Verified 02/27/23 13:25) HALLUCINATIONS HPI PO RT MF Trigger Release 02/14/23AR/EMG rev HPI Details 62-year-old female who returns to the office today for post-op right middle finger release, 02/14/[address] Christnia and an EMG review. She states she is able to make a full close fist with her right hand. She is doing well overall and has no concerns today. [facility] Medical History HLD (hyperlipidemia) HTN (hypertension) Hypothyroidism Multinodular thyroid T2DM (type 2 diabetes mellitus) Vitamin D deficiency Surgical History History of excision of mass (05/08/22) History of lipoma History of thyroid surgery Hx of colonoscopy Hx of eye surgery Hx of hand surgery Hx of tubal ligation Family History Father Diabetes CVD (cardiovascular disease) Myocardial infarction Mother Diabetes CVD (cardiovascular disease) Social History Household Members Other:: son Housing: Apartment Alcohol intake: never Patient Tobacco Use Status: Current everyday Tobacco user Tobacco use type: Cigarette Cigarettes Per Day: 8 Years Smoked: 40 Sexual orientation: Straight/Heterosexual Gender identity: Female Review of Systems Const All systems reviewed & are unremarkable except as noted in HPI and below Physical Exam Vital Signs: BMI result Body Mass Index 27.8 Extrem Other: Right middle finger: Incision clean, dry and intact. She has no catching or clicking. No erythema or drainage. NVI. Assessment & Plan Assessment & Plan (1) Cervical radiculopathy: Code(s): M54.12 - Radiculopathy, cervical region (2) Trigger middle finger of right hand: Code(s): M65.331 - Trigger finger, right middle finger Plan Sutures removed today, steri strips applied. She will increase activity as tolerated. I did put in a referral to pain management to rule out cervical radiculopathy as her EMG study was negative for CTS. She is content with this plan. Orders: Referrals Pain Management Referral M54.12 - Radiculopathy, cervical region Patient Instructions: Scribed for Carl Williamson PA-C, by Leland Harrison territory sales manager medical, on 02/27/2023 at 1:45 PM EST. I, Carl Williamson PA-C, have personally reviewed and agree with the information entered by the scribe. Coding Level of Care Code Global (81602) Diagnoses Cervical radiculopathy M54.12 Trigger middle finger of right hand M65.331
== END 2023-02-27 13:39 | disposition home or self-care (01) ==
PROVIDERS: PCP Registered Nurse; Visit Provider Physician Assistant
DX: M54.12 Radiculopathy, cervical region (principal); M65.331 Trigger finger, right middle finger
CPT/HCPCS: 99024

== ENCOUNTER → 2023-02-27 13:12 | Outpatient (BNVA) | payer MEDICAID, SELFPAY | PROVIDERS: PCP Registered Nurse; Visit Provider Physician Assistant ==

== ENCOUNTER 2023-03-11 15:18 | Outpatient (REF) | payer MEDICAID, SELFPAY ==
[2023-03-16 03:29] LABS: HPV 16 RNA NOT DETECTED (NOT DETECTED); HPV mRNA E6/E7 rflx Detected (Not Detected)
== END 2023-03-11 15:19 | disposition home or self-care (01) ==
LOC: HO.LNP 15:18
PROVIDERS: PCP Registered Nurse; Visit Provider Obstetrics & Gynecology
DX: Z01.419 Encounter for gynecological examination (general) (routine) without abnormal findings (principal); Z11.51 Encounter for screening for human papillomavirus (HPV)
CPT/HCPCS: 87624; 87625; 88142

== ENCOUNTER 2023-03-11 15:18 | Outpatient (AMB) | payer MEDICAID, SELFPAY ==
[2023-03-11 15:21] VITALS: BP 134/74; BMI 28.0
--- NOTE | 2023-03-11 15:21 | MHC.OFFVIS ---
Intake Vital Signs 03/11/23 15:21 Height 5 ft 3 in Weight 158 lb BMI 28.0 BP 134/74 Intake Visit Reasons: CO TEST Water/Wastewater Project Engineer Required: Yes Water/Wastewater Project Engineer Language: Inhalation Therapist Name: Gris Sandoval Information Interpreted: non-clinical & clinical Pneumatic Press Hand: Pneumatic Press Hand Present (Gris) Allergies meperidine [From DEMEROL] Allergy (Intermediate, Verified 03/11/23 15:25) HALLUCINATIONS Is last menstrual period known: No Post menopausal: Yes HPI HPI Comments History of Present Illness Details Presenting for annual exam. No complaints. Last Pap/HPV was negative/HPV positive in 02/16, colpo biopsy/ECC was negative Last Mammogram was BI-RADS 2 in 07/18 Last Colonoscopy was 3 years ago, the recommendation was to repeat in 5 years from the time of colonoscopy [facility] Medical History (Updated 03/11/23 @ 15:33 by Scott Guadarrama MD) Cervical high risk HPV (human papillomavirus) test positive HLD (hyperlipidemia) HTN (hypertension) Hypothyroidism Multinodular thyroid T2DM (type 2 diabetes mellitus) Vitamin D deficiency Surgical History History of excision of mass (05/08/22) History of lipoma History of thyroid surgery Hx of colonoscopy Hx of eye surgery Hx of hand surgery Hx of tubal ligation Family History (Updated 03/11/23 @ 15:27 by CARISSA Edmonds) Father Diabetes CVD (cardiovascular disease) Myocardial infarction Mother Diabetes CVD (cardiovascular disease) Breast cancer Sister Breast cancer Social History (Updated 03/11/23 @ 15:28 by CARISSA Edmonds) Household Members Other:: son Housing: Apartment Alcohol intake: never Patient Tobacco Use Status: Former Tobacco user Tobacco use type: Cigarette Years Smoked: 40 Sexual orientation: Straight/Heterosexual Gender identity: Female Female Reproductive History Menstrual Age of Menarche: 12 control method: permanent sterilization Total pregnancies: 3 Full term: 3 Number of Living Children: 4 Multiple births: 1 Date of last pap smear: 09/04/18 Date of Mammogram: 06/27/21 Review of Systems Const All systems reviewed & are unremarkable except as noted in HPI and below Card Reports as per HPI Resp Reports as per HPI GI Reports as per HPI and Reports no additional complaints Reports as per HPI Physical Exam Vital Signs: Last Vital Signs BP 134/74 03/11/23 15:21 BMI result Body Mass Index 28.0 Const General: cooperative, healthy appearing and comfortable Chest Chest palpation & inspection: normal inspection of the chest and normal palpation of entire chest wall Breast/axilla inspection: normal inspection of the breasts and normal inspection of the axillae Breast/axilla palpation: normal palpation of the breasts, normal palpation of the axillae and no axillary lymphadenopathy Resp Effort & Inspection: normal respiratory effort Auscultation: clear to auscultation bilaterally Percussion: percussion normal Cardio Palpation: normal PMI Rate: regular rate Rhythm: regular rhythm Heart sounds: no murmurs and no rubs Peripheral pulses: Peripheral pulses 2+ throughout GI Inspection: Yes normal to inspection Palpation (GI): Soft to palpation, nontender, no guarding, not rigid and No hepatosplenomegaly present Percussion: Yes normal to percussion Auscultation: normal bowel sounds Rectal Exam - Female: deferred General: Yes bladder normal to palpation External Female Exam: No lesion Speculum Exam - Vagina: normal appearance of the vagina, normal palpation, normal vaginal discharge and not erythematous Speculum Exam - Cervix: normal appearance of the cervix and normal palpation Bimanual exam- vagina & uterus: normal bimanual exam, normal palpation, uterine size normal, bladder normal to palpation, consistency normal and normal palpation Bimanual Exam- Adnexa, other: normal adnexae, no masses and no tenderness Assessment & Plan Assessment & Plan (1) Well woman exam: Code(s): Z01.419 - Encounter for gynecological examination (general) (routine) without abnormal findings Plan: Co testing done. Counseled the patient about the recommended dietary allowance of 1200 mg of Calcium & 600 IU of vitamin D. Mammogram ordered , the patient is up-to-date with her screening colonoscopy . The patient was instructed to perform monthly self-breast exams and schedule annual exam in a year; all questions answered and the patient verbalized understanding. Orders: Orders MM screening mammo BI Today Z12.31 - Encounter for screening mammogram for malignant neoplasm of breast Coding Level of Care Code Est Pt Prev Care 40-64y(79914) Diagnoses Well woman exam Z01.419
== END 2023-03-11 15:50 | disposition home or self-care (01) ==
LOC: HO.HWS 15:19
PROVIDERS: PCP Registered Nurse; Visit Provider Obstetrics & Gynecology
DX: Z01.419 Encounter for gynecological examination (general) (routine) without abnormal findings (principal)
CPT/HCPCS: 99396

== ENCOUNTER 2023-05-09 10:42 | Outpatient (REF) | payer MEDICAID, SELFPAY | END 2023-05-09 10:43 | disposition home or self-care (01) | LOC: HO.LNP 10:42 | PROVIDERS: PCP Registered Nurse; Visit Provider Obstetrics & Gynecology | DX: R87.820 Cervical low risk human papillomavirus (HPV) DNA test positive (principal); B97.7 Papillomavirus as the cause of diseases classified elsewhere | CPT/HCPCS: 57454; 88305 ==

== ENCOUNTER 2023-05-09 10:42 | Outpatient (AMB) | payer MEDICAID, SELFPAY ==
--- NOTE | 2023-05-09 10:45 | A.OFFVIS_ITS ---
Intake Vital Signs 05/09/23 10:48 Height 5 ft 3 in Weight 156 lb 8.451 oz BMI 27.7 BP 134/70 Intake Visit Reasons: Colposcopy Director Of Early Childhood Required: Yes Director Of Early Childhood Language: Tube Backer Name: Gris FERRER Information Interpreted: non-clinical & clinical Accompanied by: Self / Same As Patient Allergies meperidine [From DEMEROL] Allergy (Intermediate, Verified 05/09/23 10:50) HALLUCINATIONS Post menopausal: Yes PFSH Medical History (Updated 05/09/23 @ 10:59 by Scott Guadarrama MD) Cervical high risk HPV (human papillomavirus) test positive Vitamin D deficiency Hypothyroidism Multinodular thyroid HLD (hyperlipidemia) HTN (hypertension) T2DM (type 2 diabetes mellitus) Surgical History History of lipoma History of excision of mass (05/08/22) History of thyroid surgery Hx of colonoscopy Hx of hand surgery Hx of tubal ligation Hx of eye surgery Family History (Updated 03/11/23 @ 15:27 by CARISSA Edmonds) Father Diabetes CVD (cardiovascular disease) Myocardial infarction Mother Diabetes CVD (cardiovascular disease) Breast cancer Sister Breast cancer Social History (Updated 03/11/23 @ 15:28 by CARISSA Edmonds) Household Members Other:: son Housing: Apartment Alcohol intake: never Patient Tobacco Use Status: Former Tobacco user Tobacco use type: Cigarette Years Smoked: 40 Sexual orientation: Straight/Heterosexual Gender identity: Female Female Reproductive History Menstrual Age of Menarche: 12 Office Procedures Colposcopy Before the procedure was started discussed with the patient the procedure, alternatives & all the risks associated with the procedure (bleeding, infection, injury to vagina, bladder, vessels, possible need for transfusion with all its risks) then patient signed the consent Pap smear = negative Pap/HPV positive Speculum inserted, acetic acid used Colposcopy done Transformation zone seen, acetowhite lesions identified at 4+6+7+11+12 o?clock, cervical biopsies taken from 4+6+7+11+12 o?clock, ECC done afterwards. Vaginoscopy of the upper vagina showed no evidence of any aceto-white lesions Monsel solution used for hemostasis. The patient tolerated well . At the end the patient was instructed to call if temp>100.4, abdominal pain, n/v, bleeding; The patient was given the following instructions: nothing per vagina, no intercourse or bath tub use. All questions answered the patient verbalized understanding. Instructed the patient to make an appointment in 2 weeks for follow-up This note was generated with a voice recognition program. Some errors may have been overlooked during the review of this note. Sometimes these errors may affect the content or meaning of a given sentence. 54635-[id number] of cervix including upper vagina with biopsy and ECC Procedure code (CPT) selection complete Assessment & Plan Assessment & Plan Orders: Orders AMB Colposcopy Today B97.7 - Papillomavirus as the cause of diseases classified elsewhere Coding Level of Care Code Procedure Only CPT Codes Colposcopy - CPT: 21256-[id number] of cervix including upper vagina with biopsy and ECC ([id number])
[2023-05-09 10:48] VITALS: BP 134/70; BMI 27.7
== END 2023-05-09 11:00 | disposition home or self-care (01) ==
PROVIDERS: PCP Registered Nurse; Visit Provider Obstetrics & Gynecology
DX: R87.810 Cervical high risk human papillomavirus (HPV) DNA test positive (principal)
CPT/HCPCS: 57454

== ENCOUNTER 2023-05-22 14:00 | Outpatient (RCR) | payer MEDICAID, SELFPAY ==
--- NOTE | 2023-04-12 10:46 | MHC.OT.EP ---
[address] [phone] Occupational Therapy Plan of Care Patient Name: Renetta Messer Date of Evaluation: 04/12/23 Diagnosis: Right middle finger A-1 edilson release Pain Location: 8 right hand . Achy, throbbing Pain Score: 8 Pain Scale Used: Numeric (0 - 10) Aggravating Factors: pressure , using the hand Alleviating Factors: Heat Assessment: Pt is a 62 yo female 8 wks s/p right middle finger trigger release . 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 She is able to complete all daily activities with middle finger pain and activity modification as needed. Pt will benefit from OT to improve pain , activity tolerance and ROM of her middle finger of her right dominant hand Frequency and Duration: The patient will be seen 2x wk x 3 wks Short Term Goals: Demonstrate indep with her HEP Right MF PIP jt ext to neutral Tolerate moderate pressure on surgical scar Right solar project engineer to > 10 lb Report increase ease with daily activities Usp Goals: Same as above Treatment Plan: Therapeutic Exercise Therapeutic Activity Home Exercise Program Splinting Patient Education Desensitization/Sensory Re-ed Paraffin Fluidotherapy MHP Soft Tissue Mobilization Electronically Signed By: Margaret Denis OT CHT CLT Please Sign and return to therapist. Thank you once again for your referral.
--- NOTE | 2023-05-22 16:04 | MHC.OT.DC ---
[address] [phone] F: [phone] Occupational Therapy Discharge Note Patient Name: Renetta Messer Provider: Alanna Godinez Diagnosis: Right middle finger A-1 edilson release Date of Surgery: 02/14/23 Date of Evaluation: 04/12/23 Date of Discharge: 05/22/23 Treatments to Date: 9 Cancellations to Date: No Shows to Date: 1 Discharge Status: Independent with HEP Patient Elected to Stop Recommend MD Follow-up Discharge Summary: Goals met for independence with ther ex, tolerating moderate pressure at surgical scar and poly operator strength Con't complaint of high pain (6/10) and joint stiffness. Plateau in pain and ROM Pre treatment digit is stiff with PIP jt flexion contracture (25 deg) and pain on flexion. (6/10) ROM improved with heat and gentle exercise to WNL IP extension 25 deg , 0-5 deg post rx PIP flex 90 deg DIP flex 60 deg composite flex . 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 Recommended pt follow up with Dr Christina Electronically Signed By: Margaret Denis OT CHT CLT Reviewed/agree with student documentation: Therapist: Please Sign and return to therapist, thank you for your referral.
--- NOTE | 2023-05-22 16:04 | MHC.OT.DC ---
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 Plateau in pain and ROM Pre treatment digit is stiff with PIP jt flexion contracture (25 deg) and pain on flexion. (6/10) ROM improved with heat and gentle exercise to WNL IP extension 25 deg , 0-5 deg post rx PIP flex 90 deg DIP flex 60 deg composite flex . 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 Recommended pt follow up with Dr Christina Electronically Signed By: Margaret Denis OT CHT CLT Reviewed/agree with student documentation: Therapist: Please Sign and return to therapist, thank you for your referral.
== END 2023-05-22 16:05 | disposition home or self-care (01) ==
LOC: HO.OT 14:00
PROVIDERS: PCP Registered Nurse; Visit Provider Registered Nurse
DX: M65.331 Trigger finger, right middle finger (principal)
CPT/HCPCS: 97033; 97035; 97110; 97140; 97166

== ENCOUNTER 2023-05-24 11:04 | Outpatient (REF) | payer MEDICAID, SELFPAY ==
--- NOTE | ~2023-05-24 | XR_ITS ---
EXAMINATION: XR HAND, RIGHT CLINICAL INFORMATION: Pain in right hand. COMPARISON: 11/14/2018 TECHNIQUE: PA, lateral, and oblique views of the right hand. FINDINGS: Radiopaque marker placed to indicate the area of concern indicated by the patient at the distal tuft of the right third digit. No displaced fracture of the third digit identified. Mild degenerative changes with loss of the joint space in the DIP joint. Focal concavities along the distal lateral aspect of the 3rd proximal phalanx suggestive of bony erosion. Moderate degenerative changes in the 1st carpometacarpal joint with joint space narrowing and hypertrophic change. XR/XR hand RT min 3V IMPRESSION: Mild degenerative changes DIP joint of third digit. No displaced fracture. Recommend followup imaging in 10-14 days if fracture is suspected.
== END 2023-05-24 11:05 | disposition home or self-care (01) ==
LOC: HO.HOSX 11:04
PROVIDERS: PCP Registered Nurse; Visit Provider Physical Medicine & Rehabilitation
DX: M79.641 Pain in right hand (principal)
CPT/HCPCS: 73130; 99212

== ENCOUNTER 2023-05-24 11:04 | Outpatient (AMB) | payer MEDICAID, SELFPAY ==
--- NOTE | 2023-05-24 11:11 | A.OFFVIS_ITS ---
Intake Vital Signs 05/24/23 11:16 Height 5 ft 3 in Weight 156 lb BMI 27.6 Intake Visit Reasons: ov- RT MF Trigger Release 02/14/23AR Intake Note: Renetta 62 yr old female presents today for her follow up visit s/p right MF trigger release 02/14/23. States she is not able to make a full close fist and is upset due to finger not fully extended. States she has done 12 sessions of O.T and it has not helped. Allergies meperidine [From DEMEROL] Allergy (Intermediate, Verified 05/24/23 11:15) HALLUCINATIONS HPI ov- RT MF Trigger Release 02/14/23AR HPI Details 62-year-old female who returns to the [facility] today with an pattern room attendant for a follow-up of right middle finger trigger release, 02/14/[address] Christina. She continues to have throbbing pain with stretching her finger and is not able to make a full closed fist or extend her finger. She had done 12 sessions of occupational therapy with no relief. HPI Comments History of Present Illness Details [ ] numbness [ ] weakness Treatment done so far: NSAIDs - [ ] therapy - [ ] injection - [ ] surgery - [ ] PFSH Medical History (Updated 05/09/23 @ 10:59 by Scott Guadarrama MD) Cervical high risk HPV (human papillomavirus) test positive Vitamin D deficiency Hypothyroidism Multinodular thyroid HLD (hyperlipidemia) HTN (hypertension) T2DM (type 2 diabetes mellitus) Surgical History History of lipoma History of excision of mass (05/08/22) History of thyroid surgery Hx of colonoscopy Hx of hand surgery Hx of tubal ligation Hx of eye surgery Family History (Updated 03/11/23 @ 15:27 by CARISSA Edmonds) Father Diabetes CVD (cardiovascular disease) Myocardial infarction Mother Diabetes CVD (cardiovascular disease) Breast cancer Sister Breast cancer Social History Household Members Other:: son Housing: Apartment Alcohol intake: never Patient Tobacco Use Status: Former Tobacco user Tobacco use type: Cigarette Years Smoked: 40 Sexual orientation: Straight/Heterosexual Gender identity: Female Female Reproductive History Menstrual Age of Menarche: 12 Review of Systems Const All systems reviewed & are unremarkable except as noted in HPI and below Physical Exam Vital Signs: BMI result Body Mass Index 27.6 Extrem Other: Right middle finger: Incision well healed. She does have an area of fibrotic tissue over the surgical site with about 5-10 degrees flexion contracture. She does have significant tenderness over area of incision. FDP and FDS intact. I can passively extend the digit however this cause pain. Results Reviewed Results Reviewed: X-rays of the right hand obtained in the office today show negative for any acute any abnormality. No sign of OA. Assessment & Plan Assessment & Plan (1) Trigger middle finger of right hand: Code(s): M65.331 - Trigger finger, right middle finger Plan I did explain to the patient that with negative finding on x-rays, it appears as though she has developed some fibrotic tissue along her flexor tendon in the right middle finger which is causing her flexion contracture. I did encourage her to meet with Dr. Christina to discuss further whether or not she would benefit from some type of revision procedure. She is a bit frustrated as she did not have this issue prior to surgery and feels it does limit her daily activities, but she will make an appointment with Dr. Christina to discuss this further. Orders: Orders XR hand RT min 3V 05/24/23 M79.641 - Pain in right hand Patient Instructions: Scribed for Carl Williamson PA-C, by Leland Harrison medical support assistant, on 05/24/2023 at 11:00 AM Carl BRENNAN PA-C, have personally reviewed and agree with the information entered by the scribe. Coding Level of Care Code Est Pt Level 3 (66517) Diagnoses Trigger middle finger of right hand M65.331
[2023-05-24 11:16] VITALS: BMI 27.6
== END 2023-05-24 12:11 | disposition home or self-care (01) ==
PROVIDERS: PCP Registered Nurse; Visit Provider Physician Assistant
DX: M65.331 Trigger finger, right middle finger (principal)
CPT/HCPCS: 99213

== ENCOUNTER 2023-06-05 13:08 | Outpatient (AMB) | payer MEDICAID, SELFPAY ==
--- NOTE | 2023-06-05 13:18 | A.OFFVIS_ITS ---
Intake Vital Signs 06/05/23 13:19 Height 5 ft 3 in Weight 154 lb 5.177 oz BMI 27.3 BP 120/68 Intake Visit Reasons: Colpo Results Hypertrichologist Required: Yes Hypertrichologist Language: Patient Services Clerk Name: Gris FERRER Information Interpreted: non-clinical & clinical Accompanied by: Self / Same As Patient Allergies meperidine [From DEMEROL] Allergy (Intermediate, Verified 06/05/23 13:20) HALLUCINATIONS Post menopausal: Yes HPI HPI Comments History of Present Illness Details Presenting post colpo for follow-up. The patient is doing well with no complaints. The pathology showed the following: A. Endocervix, curettage: Superficial strips of endocervical epithelium within normal limits; mucoinflammatory material. B. Cervix, 4 o'clock, biopsy: - Superficial strips of endocervical epi thelium within normal limits; mucoinflammatory material. - No squamous epithelium identified. C. Cervix, 6 o'clock, biopsy: Superficial fragments of mildly inflamed endocervical and squamous epithelium with reactive changes; mucoinflammatory material. D. Cervix, 7 o'clock, biopsy: Squamous and endocervical mucosa within normal limits. E. Cervix, 11 o'clock, biopsy: Mildly inflamed endocervical mucosa; no atypia seen; no squamous epithelium present. F. Cervix, 12 o'clock, biopsy: Mildly inflamed endocervical and squamous epithelium with reactive changes PFSH Medical History Cervical high risk HPV (human papillomavirus) test positive Vitamin D deficiency Hypothyroidism Multinodular thyroid HLD (hyperlipidemia) HTN (hypertension) T2DM (type 2 diabetes mellitus) Surgical History History of lipoma History of excision of mass (05/08/22) History of thyroid surgery Hx of colonoscopy Hx of hand surgery Hx of tubal ligation Hx of eye surgery Family History Father Diabetes CVD (cardiovascular disease) Myocardial infarction Mother Diabetes CVD (cardiovascular disease) Breast cancer Sister Breast cancer Social History Household Members Other:: son Housing: Apartment Alcohol intake: never Patient Tobacco Use Status: Former Tobacco user Tobacco use type: Cigarette Years Smoked: 41 Sexual orientation: Straight/Heterosexual Gender identity: Female Female Reproductive History Menstrual Age of Menarche: 12 Review of Systems Const All systems reviewed & are unremarkable except as noted in HPI and below Reports as per HPI and Reports no additional complaints GI Reports no additional complaints Reports no additional complaints Assessment & Plan Assessment & Plan (1) HPV (human papilloma virus) infection: Code(s): B97.7 - Papillomavirus as the cause of diseases classified elsewhere Plan: Discussed with the patient the pathology results of the colposcopy biopsies & endocervical curettage (negative). Discussed with the patient the sensitivity specificity, positive and negative predictive value in detecting cervical cancer in addition discussed the regression, persistence and progression rates. Recommended co-testing in 12 months, if cytology and or HPV are abnormal will proceed was colposcopy biopsy and endocervical curettage. Instructions given to the patient to schedule a co test appointment in 1 year. All questions answered the patient verbalized understanding. Coding Level of Care Code Est Pt Level 3 (65358) Diagnoses HPV (human papilloma virus) infection B97.7
[2023-06-05 13:19] VITALS: BP 120/68; BMI 27.3
== END 2023-06-05 13:56 | disposition home or self-care (01) ==
LOC: HO.HWS 13:08
PROVIDERS: PCP Registered Nurse; Visit Provider Obstetrics & Gynecology
DX: R87.810 Cervical high risk human papillomavirus (HPV) DNA test positive (principal)
CPT/HCPCS: 99213

== ENCOUNTER → 2023-06-05 13:08 | Outpatient (BNVA) | payer MEDICAID, SELFPAY | PROVIDERS: PCP Registered Nurse; Visit Provider Obstetrics & Gynecology | DX: B97.7 Papillomavirus as the cause of diseases classified elsewhere (principal) | CPT/HCPCS: 99212 ==

== ENCOUNTER 2023-06-25 12:23 | Outpatient (AMB) | payer MEDICAID, SELFPAY ==
--- NOTE | 2023-06-25 12:39 | A.OFFVIS_ITS ---
Intake Vital Signs 06/25/23 12:41 Height 5 ft 3 in Intake Visit Reasons: ov- RT MF Trigger Release 02/14/23AR Intake Note: Renetta 62 yr old female presents today for a follow up visit with complaints of continued eight middle finger pain and limited ROM. s/p right MF trigger release 02/14/23. She feels a small palpable mass at the base of the finger. Allergies meperidine [From DEMEROL] Allergy (Intermediate, Verified 06/05/23 13:20) HALLUCINATIONS HPI ov- RT MF Trigger Release 02/14/23AR HPI Details Renetta is a 62 year old right hand dominant Divehi speaking woman who returns to discuss her right middle finger pain and contracture. She is S/P right middle finger trigger release, DOS: 02/14/23. She complains of pain and limited ROM of her middle finger following surgery. She found no improvement from OT hand therapy. She is seen today wearing a finger splint. [facility] Medical History Cervical high risk HPV (human papillomavirus) test positive Vitamin D deficiency Hypothyroidism Multinodular thyroid HLD (hyperlipidemia) HTN (hypertension) T2DM (type 2 diabetes mellitus) Surgical History History of lipoma History of excision of mass (05/08/22) History of thyroid surgery Hx of colonoscopy Hx of hand surgery Hx of tubal ligation Hx of eye surgery Family History Father Diabetes CVD (cardiovascular disease) Myocardial infarction Mother Diabetes CVD (cardiovascular disease) Breast cancer Sister Breast cancer Social History Household Members Other:: son Housing: Apartment Alcohol intake: never Patient Tobacco Use Status: Former Tobacco user Tobacco use type: Cigarette Years Smoked: 40 Sexual orientation: Straight/Heterosexual Gender identity: Female Female Reproductive History Menstrual Age of Menarche: 12 Review of Systems Const All systems reviewed & are unremarkable except as noted in HPI and below Physical Exam Const General: no acute distress and alert Orientation/consciousness: patient oriented x3 Neuro General: patient oriented x3 Extrem Other: Evaluation of Right Upper Extremity: The patient is alert, oriented, and in no acute distress Neuro: Median, Ulnar, Radial nerves motor and sensory intact and sensation is normal to the tips of all digits Vascular: Cap refill brisk ROM: Initially she could not get her hand flat on the table, and she had an ~30 degree PIP joint flexion contracture We worked on ROM exercises for more than 15 minutes today. Before leaving clinic she could place her hand flat on the table, make a fist, and extend her middle finger without a flexion contracture. Encouraged her to work on these exercises more 20 times per day. She had no locking or catching with active finger flexion extension. Psych Appearance: grossly normal Affect: normal affect Attitude: cooperative Office Procedures Fracture Care Details: No fracture, manual therapy for more than 15 minutes [id number] Fracture Billing Code: Fracture Billing Code Assessment & Plan Assessment & Plan (1) Trigger middle finger of right hand: Code(s): M65.331 - Trigger finger, right middle finger (2) T2DM (type 2 diabetes mellitus): Code(s): E11.9 - Type 2 diabetes mellitus without complications Qualifiers: Diabetes mellitus complication status: with hyperglycemia Diabetes mellitus [facility] insulin use: with director long term care use Qualified Code(s): E11.65 - Type 2 diabetes mellitus with hyperglycemia; Z79.4 - shelter (current) use of insulin (3) Stiffness of finger joint of right hand: Code(s): M25.641 - Stiffness of right hand, not elsewhere classified Plan Assessment & Plan: 1. Right middle finger stiffness I educated her about this condition We worked on ROM exercises for more than 15 minutes today in clinic, and before leaving she could make a fist and extend her finger without a contracture I recommend activity modification, she should work on ROM exercises 20x daily at home She will discontinue her finger splint at this time I discussed the importance of performing her exercises to improve her ROM She can follow up prn 2. Right middle finger trigger finger, S/P release DOS: 02/14/23 Resolved 3. History of left middle trigger finger, S/P release DOS: ~2010, but may be earlier as the patient is unsure. No locking or catching Scribed for Deb Christina MD by Simeon Jurado, lpn medical assistant, on 06/25/23 at 1:05 PM, EST. Coding Level of Care Code Est Pt Level 3 (46469) Diagnoses Trigger middle finger of right hand M65.331 Type 2 diabetes mellitus with hyperglycemia, with long-term current use of insulin E11.65; Z79.4 Diabetes mellitus complication status: with hyperglycemia Diabetes mellitus [facility]p insulin use: with director long term care use Stiffness of finger joint of right hand M25.641 CPT Codes Fracture Care - Fracture Billing Code: Fracture Billing Code ([id number])
== END 2023-06-25 13:23 | disposition home or self-care (01) ==
PROVIDERS: PCP Registered Nurse; Visit Provider Orthopaedic Surgery
DX: M65.331 Trigger finger, right middle finger (principal); M25.641 Stiffness of right hand, not elsewhere classified; Z79.4 Long term (current) use of insulin
CPT/HCPCS: 97140; 99213

== ENCOUNTER → 2023-06-25 12:23 | Outpatient (BNVA) | payer MEDICAID, SELFPAY | PROVIDERS: PCP Registered Nurse; Visit Provider Orthopaedic Surgery | DX: M65.331 Trigger finger, right middle finger (principal); M25.641 Stiffness of right hand, not elsewhere classified; E11.65 Type 2 diabetes mellitus with hyperglycemia; Z79.4 Long term (current) use of insulin | CPT/HCPCS: 97140; 99212 ==

== ENCOUNTER 2023-06-26 15:43 | Outpatient (REF) | payer MEDICAID, SELFPAY ==
[2023-06-26 18:21] LABS: Alanine Aminotransferase 19 U/L (0-31); Albumin Level 4.2 g/dL (3.5-5.0); Alkaline Phosphatase 76 U/L (39-117); Anion Gap 16 (12-20); Aspartate Amino Transferase 19 U/L (5-31); Bilirubin Total 0.2 mg/dL (0.0-1.0); Blood Urea Nitrogen 13 mg/dL (9-16); Calcium 9.5 mg/dL (8.4-10.2); Carbon Dioxide 26 mmol/L (22-29); Chloride 101 mmol/L (96-108); Estimated Glomerular Filt Rate > 60; Glucose Random 238 mg/dL (60-115); Potassium 4.2 mmol/L (3.3-5.1); Sodium 139 mmol/L (135-145); Total Protein 7.4 g/dL (6.5-8.0)
[2023-06-26 18:28] LABS: Vitamin B12 284 pg/mL (200-900)
[2023-06-26 18:30] LABS: TSH reflex Free T4 1.64 uIU/mL (0.32-4.0)
== END 2023-06-26 15:44 | disposition home or self-care (01) ==
LOC: HO.HHCL 15:43
PROVIDERS: Visit Provider Registered Nurse
DX: E11.9 Type 2 diabetes mellitus without complications (principal); Z79.4 Long term (current) use of insulin; E03.9 Hypothyroidism, unspecified
CPT/HCPCS: 36415; 80053; 82607; 84443

== ENCOUNTER 2023-07-09 09:10 | Outpatient (REF) | payer MEDICAID, SELFPAY ==
[2023-07-09 11:56] LABS: Cholesterol 108 mg/dL (<200); HDL Cholesterol 42 mg/dL (>40); LDL Cholesterol Calculated 55 mg/dL (<100); Triglycerides 57 mg/dL (<150)
== END 2023-07-09 09:11 | disposition home or self-care (01) ==
LOC: HO.HHCL 09:10
PROVIDERS: Visit Provider Registered Nurse
DX: E11.9 Type 2 diabetes mellitus without complications (principal); Z79.4 Long term (current) use of insulin
CPT/HCPCS: 36415; 80061

== ENCOUNTER 2023-08-11 11:13 | Emergency (ER) | payer MEDICAID, SELFPAY ==
--- NOTE | 2023-08-11 11:36 | ED.GENADULT ---
HPI - General Adult General Chief complaint: Back Pain/Injury Stated complaint: Lower back pain/Bilateral foot inflammation Time Seen by Provider: 08/11/23 12:10 Source: patient and natural resources faculty member Mode of arrival: ambulatory Limitations: language barrier History of Present Illness HPI narrative: This is a 75-ytce-ylt-kazakh speaking female, with a hx of diabetes, hypothyroidism, HLD, and HTN, presenting to the ER with complaints of left lower back pain x 2 days. She states no recent trauma, injury or falls. She states that two days ago she woke up with the pain. States that the pain worsens with movement and with palpation. She states that the pain stays in her back, denies any radiating pain. No numbness, tingling, or weakness. No saddle anesthesia. No urinary or bowel retention or incontinence. Denies any fevers, chills, nausea, vomiting or diarrhea. She also reports that last week she had her ingrown toenails removed from her bilateral great toes. She has been taking bactrim DS however is concerned that they are still infected. Denies any increased redness, states that the swelling has improved. Denies any other complaints or concerns at this time. MD complaint: Low back pain Onset (ago): day(s) Location: back Radiation: non-radiation Severity: moderate Quality: aching Pain Consistency: constant Relieving factors: rest Exacerbating factors: movement Associated symptoms: denies other symptoms Treatments prior to arrival: none Related Data Home Medications Medication Instructions Recorded Confirmed cholecalciferol (vitamin D3) 25 25 mcg PO DAILY 08/04/20 08/02/22 mcg (1,000 unit) capsule gabapentin 300 mg capsule 300 mg PO BEDTIME 08/04/20 08/02/22 lisinopril 10 mg tablet 10 mg PO DAILY 08/04/20 08/02/22 metformin 1,000 mg tablet 1,000 mg PO BID 08/04/20 08/02/22 ascorbic acid (vitamin C) 500 mg 500 mg PO QAM 03/11/23 tablet (Vitamin C) flash glucose sensor (FreeStyle #1 ea 03/11/23 Logan 2 Sensor kit) lidocaine 5 % topical patch 0 patch topical 03/11/23 nicotine (polacrilex) 2 mg buccal 2 mg PO 03/11/23 lozenge vitamin E (dl, acetate) 180 mg 180 mg PO QAM 03/11/23 (400 unit) capsule Previous Rx's Medication Instructions Recorded pen needle, diabetic 32 gauge x #100 ea 06/08/20 1/4 (BD Ultra-Fine Micro Pen Needle) albuterol sulfate 90 mcg/actuation 2 puff PO Q2H PRN for wheezing 02/13/21 aerosol inhaler (ProAir HFA) #8.5 grams levothyroxine 50 mcg tablet 50 mcg PO DAILY 30 days #30 tabs 12/14/21 acetaminophen 500 mg tablet 1,000 mg (2 x 500 mg) PO QID PRN 01/28/22 pain #30 tabs cyclobenzaprine 5 mg tablet 5 mg PO TID PRN muscle spasm #10 01/28/22 tabs insulin degludec 100 unit/mL (3 14 unit (0.14 mL) subcut DAILY 30 06/28/22 mL) subcutaneous pen (Tresiba days #4.2 mL FlexTouch U-100 insulin) insulin lispro 100 unit/mL 1 sliding scale dose subcut 08/29/22 subcutaneous pen USEASDIRECTD 30 days #30 mL lancets 33 gauge (TRUEplus Lancets) 1 gauge miscellaneous QID for 09/04/22 diabetes mellitus 30 days #100 ea blood sugar diagnostic (FreeStyle 1 strip miscellaneous QID for 10/29/22 Lite Strips) diabetes mellitus 30 days #150 strips atorvastatin 40 mg tablet 40 mg PO DAILY 30 days #30 tabs 11/08/22 acetaminophen 500 mg tablet 500 mg PO Q6H PRN pain #30 tabs 08/11/23 (Tylenol Extra Strength) lidocaine 5 % topical patch 1 patch topical DAILY #30 ea 08/11/23 (Lidoderm) Allergies Allergy/AdvReac Type Severity Reaction Status Date / Time meperidine [From DEMEROL] Allergy Intermediate HALLUCINATI Verified 06/05/23 13:20 ONS Review of Systems Review of Systems: Yes all other systems are reviewed and are negative Constitutional: Constitutional: Reports as per [facility] Past Medical History Onset Date is defined in the Problem List Problems that require an onset date and time if occurred within 24 hrs of arrival to the ED Aortic Dissection and Rupture; Neurologic impairment; Cardiopulmonary Arrest; Endotracheal Intubation; Insertion or Replacement of Mechanical Circulatory Assist Device Medical History Cervical high risk HPV (human papillomavirus) test positive Vitamin D deficiency Hypothyroidism Multinodular thyroid HLD (hyperlipidemia) HTN (hypertension) T2DM (type 2 diabetes mellitus) Surgical History History of lipoma History of excision of mass (05/08/22) History of thyroid surgery Hx of colonoscopy Hx of hand surgery Hx of tubal ligation Hx of eye surgery Family History Family History Father Diabetes CVD (cardiovascular disease) Myocardial infarction Mother Diabetes CVD (cardiovascular disease) Breast cancer Sister Breast cancer Social History Social History Household Members Other:: son Housing: Apartment Alcohol intake: never Patient Tobacco Use Status: Former Tobacco user Tobacco use type: Cigarette Years Smoked: 40 Advance Directives: No Advance Directives Information Provided: Yes Sexual orientation: Straight/Heterosexual Gender identity: Female Physical Exam ED Vital Signs: Vital Signs - 24 hr 08/11/23 11:37 Temperature 99 F Pulse Rate 104 H Respiratory Rate 18 Blood Pressure 116/84 Pulse Oximetry 98 Oxygen Delivery Method Room Air BMI result Body Mass Index 28.0 Const General: cooperative, comfortable and no acute distress Orientation/consciousness: patient oriented x3 Limitations: no limitations HENMT Head: Yes normal to inspection, Yes normocephalic and Yes atraumatic Ears: hearing grossly normal bilaterally General nose exam: Normal external nose present Face and sinus: Yes normal facial exam Mouth: Normal oral and palatal mucosa present, oropharynx normal and moist mucous membranes Throat: Yes posterior oropharynx normal Eyes General: appearance normal, both eyes and all related structures Eyelids: Yes eyelids normal Conjunctivae: conjunctivae normal Sclerae: sclerae normal Pupils: Equal, round and reactive pupils present EOM: EOMs intact bilaterally Neck Neck: Yes normal visual inspection, Yes full ROM and Yes no lymphadenopathy Lymphatic: no lymphadenopathy noted Chest Chest palpation & inspection: normal inspection of the chest Resp Effort & Inspection: normal respiratory effort and able to speak in complete sentences Auscultation: clear to auscultation bilaterally, no crackles, no rales, no rhonchi and no wheezes Cardio Rate: regular rate Rhythm: regular rhythm Heart sounds: S1 normal heart sound present and S2 normal heart sound present GI Other: Abdomen is soft, nontender Inspection: Yes normal to inspection Back/Spine/Pelvis Other: TTP overlying left lower back with spasm noted. No midline spine tenderness. No overlying skin changes or warmth. Skin General skin exam: no rashes or lesions noted Trauma: no lacerations or abrasions Wounds: no wounds Neuro General: patient oriented x3 and moves all extremities Cranial nerves: Yes Equal, round and reactive pupils present Extrem Other: BL great toes without edema, erythema, increased warmth or swelling, no drainage, no tenderness, full ROM. General: Yes normal to inspection Right upper extremity: normal to inspection Left upper extremity: normal to inspection Right lower extremity: normal to inspection Left lower extremity: normal to inspection Medical Decision Making Medical Decision Making MDM Narrative: This is a 55-enbu-cfq-kazakh speaking female, with a hx of diabetes, hypothyroidism, HLD, and HTN, presenting to the ER with complaints of left lower back pain x 2 days. This patient presents with back pain most consistent with muscle spasms. Differential diagnoses includes lumbago versus musculoskeletal spasm / strain versus sciatica.No back pain red flags on history or physical. Presentation not consistent with malignancy (lack of history of malignancy, lack of B symptoms), fracture (no trauma, no bony tenderness to palpation), cauda equina syndrome (no bowel or urinary incontinence/retention, no saddle anesthesia, no distal weakness), pyelonephritis (afebrile, no CVAT, no urinary symptoms). Given the clinical picture, no indication for imaging at this time. BL great toes without any erythema, warmth or evidence of infection. Discussed with pt to continue ABX and warm soaks and given return precautions. Pt understands and agrees with plan. Stable for d/c. Differential Diagnosis Differential Diagnoses: The differential diagnosis associated with the presentation includes see above Lab Data MDM Lab Attestation statement: I reviewed the patient's lab results. Prescription Management I considered prescription management with: Pain Medication and Antibiotic Chronic Conditions Patient?s care impacted by: Diabetes Discharge Plan Discharge Clinical Impression: Lumbar paraspinal muscle spasm, Ingrown toenail of both feet Patient Disposition: Home, Self-Care Instructions: Ingrown Nail (ED), Muscle Spasm (ED) Additional Instructions: Your seen in the emergency department due to lower back pain. Your symptoms are very consistent with muscle spasms. Please take prescribed medication as directed. Gentle stretching, range of motion can also help with your symptoms. Massage can also help. Heat can also help with your symptoms. Apply Lidoderm patches as directed, do not apply heat or ice to the patches. If your symptoms worsen including but not limited to worsening back pain, numbness and tingling into your groin, or any new urinary symptoms, please return for re-evaluation. Your toes do not appear to be infected. Please continue taking your antibiotic as directed. Warm soaks with warm soapy water can also help with your symptoms. Watch for any signs of infection including but not limited to increased redness, swelling, drainage from your toes, if any of these occur, please return for re-evaluation. Lo atendieron en el departamento de emergencias debido a un dolor lumbar. Ann s?ntomas son muy consistentes con espasmos musculares. [place] los medicamentos recetados seg?n las indicaciones. Los estiramientos suaves y la amplitud de movimiento tambi?n pueden ayudar con ann s?ntomas. El masaje tambi?n puede ayudar. El calor tambi?n puede ayudar con ann s?ntomas. Aplique los parches Lidoderm jose j se indica, no aplique calor ni hielo a los parches. Si ann s?ntomas empeoran, incluidos, entre otros, un empeoramiento del dolor de espalda, entumecimiento y hormigueo en la latisha, o cualquier s?ntoma urinario nuevo, regrese para rhoda nueva evaluaci?n. Los dedos de ann pies no parecen estar infectados. Contin?e tomando shaffer antibi?debra seg?n las indicaciones. Los ba?os tibios con agua tibia y jab?n tambi?n pueden ayudar con ann s?ntomas. Est? atento a cualquier signo de infecci?n, incluidos, entre otros, aumento del enrojecimiento, hinchaz?n y secreci?n de los dedos de los pies; si ocurre alguno de estos, regrese para rhoda nueva evaluaci?n. Prescriptions: New acetaminophen [Tylenol Extra Strength] 500 mg tablet 500 mg PO Q6H PRN (Reason: pain) Qty: 30 0RF lidocaine [Lidoderm] 5 % adhesive patch,medicated 1 patch topical DAILY Qty: 30 0RF Rx Instructions: leave on most painful area for up to 12 hrs No Action (DME) pen needle, diabetic [BD Ultra-Fine Micro Pen Needle] 32 gauge x 1/4 needle See Rx Instructions .ROUTE .MEDSUPPLY Qty: 100 11RF Rx Instructions: 4x daily albuterol sulfate [ProAir HFA] 90 mcg/actuation HFA aerosol inhaler 2 puff PO Q2H PRN (Reason: for wheezing) Qty: 8.5 6RF levothyroxine 50 mcg tablet 50 mcg PO DAILY 30 Days Qty: 30 11RF insulin degludec [Tresiba FlexTouch U-100] 100 unit/mL (3 mL) insulin pen 14 unit subcut DAILY 30 Days Qty: 4.2 3RF insulin lispro 100 unit/mL insulin pen 1 sliding scale dose subcut USEASDIRECTD 30 Days Qty: 30 11RF Rx Instructions: 7 units with meals, 2 units with snacks. lancets [TRUEplus Lancets] 33 gauge misc 1 gauge miscellaneous QID 30 Days Qty: 100 11RF FreeStyle Lite Strips Strip 1 strip miscellaneous QID 30 Days Qty: 150 11RF atorvastatin 40 mg tablet 40 mg PO DAILY 30 Days Qty: 30 2RF Rx Instructions: Complete labs for further refills. acetaminophen 500 mg tablet 1,000 mg PO QID PRN (Reason: pain) Qty: 30 0RF cyclobenzaprine 5 mg tablet 5 mg PO TID PRN (Reason: muscle spasm) Qty: 10 0RF metformin 1,000 mg tablet 1,000 mg PO BID lisinopril 10 mg tablet 10 mg PO DAILY cholecalciferol (vitamin D3) 25 mcg (1,000 unit) capsule 25 mcg PO DAILY gabapentin 300 mg capsule 300 mg PO BEDTIME (DME) FreeStyle Logan 2 Sensor Kit See Rx Instructions .ROUTE Q2W Qty: 1 Rx Instructions: As directed nicotine (polacrilex) 2 mg lozenge 2 mg PO lidocaine 5 % adhesive patch,medicated 0 patch topical vitamin E (dl, acetate) 180 mg (400 unit) capsule 180 mg PO QAM ascorbic acid (vitamin C) [Vitamin C] 500 mg tablet 500 mg PO QAM Discharge Date/Time: 08/11/23 13:07 Print Language: Korean
[2023-08-11 11:37] VITALS: BP 116/84; PULSE 104; RESP 18; TEMP 37.2; O2SAT 98; BMI 28.0
== END 2023-08-11 13:07 | disposition home or self-care (01) ==
PROVIDERS: Emergency Provider Emergency Medicine; PCP Registered Nurse
DX: M54.50 Low back pain, unspecified (principal); E11.9 Type 2 diabetes mellitus without complications; E03.9 Hypothyroidism, unspecified
CPT/HCPCS: 99281

== ENCOUNTER 2024-02-21 09:32 | Emergency (ER) | payer MEDICAID, SELFPAY ==
[2024-02-21 09:34] VITALS: BP 143/95; PULSE 97; RESP 18; TEMP 36.4; O2SAT 97; BMI 27.3
--- NOTE | 2024-02-21 10:42 | ED_ITS ---
HPI - Extremity Problem General Chief complaint: Extremity Injury, Upper Stated complaint: neck shoulder and lower back pain Time Seen by Provider: 02/21/24 10:23 Source: patient Mode of arrival: ambulatory Limitations: language barrier (Tristanian-speaking chief medical technologist utilized) History of Present Illness HPI Narrative: Patient is a 63-year-old female who presents emergency department for evaluation of the acute on chronic right shoulder pain. Symptoms have been exacerbated over the past 3 days. She reports a history of a known ?pinched nerve in the neck? that causes this pain. She follows closely with the chiropractor, she is only permitted so many treatments in a calendar year through insurance, she has not been seen by them in a few weeks. She also states that she has been evaluated by Neurology at [facility] as well who have confirmed the ?pinched nerve?. She has been taking gabapentin without much relief. She states that typically when her pain flares up like this muscle relaxers are helpful for her. When her pain is severe she moves a certain way it causes radiation of the pain down to her lower back. Denies numbness, tingling, weakness to the right upper extremity. Denies any precipitating injury. Denies any redness, swelling, fevers, chills. Denies associated neck pain at this time, however she does admit that the pain worsens in her shoulder with lateral location head or late ral flexion of the neck towards the right side. Denies saddle paresthesias, bladder bowel dysfunction/ Related Data Home Medications ?Medication ?Instructions ?Recorded ?Confirmed cholecalciferol (vitamin D3) 25 25 mcg PO DAILY 08/04/20 08/02/22 mcg (1,000 unit) capsule gabapentin 300 mg capsule 300 mg PO BEDTIME 08/04/20 08/02/22 lisinopril 10 mg tablet 10 mg PO DAILY 08/04/20 08/02/22 metformin 1,000 mg tablet 1,000 mg PO BID 08/04/20 08/02/22 ascorbic acid (vitamin C) 500 mg 500 mg PO QAM 03/11/23 tablet (Vitamin C) flash glucose sensor (FreeStyle #1 ea 03/11/23 Logan 2 Sensor kit) lidocaine 5 % topical patch 0 patch topical 03/11/23 nicotine (polacrilex) 2 mg buccal 2 mg PO 03/11/23 lozenge vitamin E (dl, acetate) 180 mg 180 mg PO QAM 03/11/23 (400 unit) capsule Previous Rx's ?Medication ?Instructions ?Recorded pen needle, diabetic 32 gauge x #100 ea 06/08/2008/01 (BD Ultra-Fine Micro Pen Needle) albuterol sulfate 90 mcg/actuation 2 puff PO Q2H PRN for wheezing 02/13/21 aerosol inhaler (ProAir HFA) #8.5 grams levothyroxine 50 mcg tablet 50 mcg PO DAILY 30 days #30 tabs 12/14/21 acetaminophen 500 mg tablet 1,000 mg (2 x 500 mg) PO QID PRN 01/28/22 pain #30 tabs cyclobenzaprine 5 mg tablet 5 mg PO TID PRN muscle spasm #10 01/28/22 tabs insulin degludec 100 unit/mL (3 14 unit (0.14 mL) subcut DAILY 30 06/28/22 mL) subcutaneous pen (Tresi days #4.2 mL FlexTouch U-100 insulin) insulin lispro 100 unit/mL 1 sliding scale dose subcut 08/29/22 subcutaneous pen USEASDIRECTD 30 days #30 mL lancets 33 gauge (TRUEplus Lancets) 1 gauge miscellaneous QID for 09/04/22 diabetes mellitus 30 days #100 ea blood sugar diagnostic (FreeStyle 1 strip miscellaneous QID for 10/29/22 Lite Strips) diabetes mellitus 30 days #150 strips atorvastatin 40 mg tablet 40 mg PO DAILY 30 days #30 tabs 11/08/22 acetaminophen 500 mg tablet 500 mg PO Q6H PRN pain #30 tabs 08/11/23 (Tylenol Extra Strength) lidocaine 5 % topical patch 1 patch topical DAILY #30 ea 08/11/23 (Lidoderm) cyclobenzaprine 5 mg tablet 5 mg PO TID PRN muscle spasm #20 02/21/24 tabs lidocaine 5 % topical patch 2 patch topical DAILY #30 ea 02/21/24 Allergies Allergy/AdvReac Type Severity Reaction Status Date / Time meperidine [From DEMEROL] Allergy Intermediate HALLUCINATI Verified 02/21/24 09:36 ONS Review of Systems Review of Systems: Yes all other systems are reviewed and are negative PMFSH Past Medical History Attestation statement: The following information was validated with the patient. Source: old records reviewed Medical History Cervical high risk HPV (human papillomavirus) test positive Vitamin D deficiency Hypothyroidism Multinodular thyroid HLD (hyperlipidemia) HTN (hypertension) T2DM (type 2 diabetes mellitus) Surgical History History of lipoma History of excision of mass (05/08/22) History of thyroid surgery Hx of colonoscopy Hx of hand surgery Hx of tubal ligation Hx of eye surgery Family History Family History Father Diabetes CVD (cardiovascular disease) Myocardial infarction Mother Diabetes CVD (cardiovascular disease) Breast cancer Sister Breast cancer Social History Social History Household Members Other:: son Housing: Apartment Alcohol intake: never Patient Tobacco Use Status: Former Tobacco user Tobacco use type: Cigarette Years Smoked: 40 Advance Directives: No Advance Directives Information Provided: Yes Sexual orientation: Straight/Heterosexual Gender identity: Female Physical Exam Vital Signs: Vital Signs: Last Vital Signs Temp 97.6 F 02/21/24 09:34 Pulse 97 02/21/24 09:34 Resp 18 02/21/24 09:34 BP 143/95 H 02/21/24 09:34 Pulse Ox 97 02/21/24 09:34 O2 Del Method Room Air 02/21/24 09:34 BMI result Body Mass Index 27.3 Appearance: Alert.?Oriented to person, place and time. No acute distress.?Normal affect. Neck: Normal inspection.? Neck supple.??No midline cervical spine tenderness, step-offs, deformities. Full range motion. CVS: Heart sounds normal. Normal heart rate and rhythm.? Pulses normal.?? Respiratory: No respiratory distress.? Lung sounds clear to auscultation bilaterally?? Skin: Skin warm and dry.? Normal skin color.? No rashes or lesions Extremities: Decreased AROM to right shoulder. 2+ radial pulse bilaterally. Diffuse tenderness upon palpation particularly over the right trapezius and right lateral neck, no bony tenderness Neuro: Moves all extremities spontaneously. Sensation intact bilaterally. No focal neuro deficits. Ambulates with normal steady gait. Medical Decision Making Medical Decision Making MDM Narrative: Patient is a 63-year-old female who presents emergency department for evaluation of acute on chronic right shoulder pain. History and physical examination is most concerning for cervical radiculopathy at this time, no precipitating injury I have a lower suspicion for acute fracture dislocation, would defer XR imaging. Not consistent with septic arthritis of the shoulder. She has a history of this in the past which has responded to muscle relaxers, at this time I feel this is reasonable, in addition to Lidoderm patches. Prescriptions were sent to her pharmacy. Although she has some associated lower back pain when she has moments of severe pain to the shoulder, she has no bladder bowel dysfunction, no concerns for cauda equina syndrome. We discussed appropriate outpatient follow- up with her primary care provider, neurologist, and chiropractor. All questions were answered. Advised of worrisome signs and symptoms that would warrant re- evaluation in the emergency department. Differential Diagnosis Differential Diagnoses: The differential diagnosis associated with the presentation includes (See narrative above) External Record Review External record reviewed: Outpatient record Tests considered The following testing was considered but not selected: Considered XR imaging, see narrative above Prescription Management I considered prescription management with: Pain Medication Discharge Plan Discharge Clinical Impression: Cervical radiculopathy Patient Disposition: Home, Self-Care Instructions: Cervical Radiculopathy (ED) Additional Instructions: You can take ibuprofen 200 mg, 3 tablets (600mg) every 6-8 hours as needed for pain, in addition to Tylenol 500 mg, 2 tablets (1,000mg) every 4-6 hours as needed for pain, but not to exceed 3 doses daily (3,000mg).? For pain that is unrelieved by ibuprofen/Tylenol you may take cyclobenzaprine/Flexeril. This is a muscle relaxant. This medication may make you drowsy. You should not drive, drink alcohol, or work while taking this medication. Please Lidoderm patches to the areas of pain; leave in place for 12 hours and remove for a total of 12 hours. Follow-up with your doctors outpatient. You may return back to emergency department any new or worsening symptoms or concerns. Prescriptions: New cyclobenzaprine 5 mg tablet 5 mg PO TID PRN (Reason: muscle spasm) Qty: 20 0RF lidocaine 5 % adhesive patch,medicated 2 patch topical DAILY Qty: 30 0RF Rx Instructions: leave on most painful area for up to 12 hrs No Action (DME) pen needle, diabetic [BD Ultra-Fine Micro Pen Needle] 32 gauge x 1/4 needle See Rx Instructions .ROUTE .MEDSUPPLY Qty: 100 11RF Rx Instructions: 4x daily albuterol sulfate [ProAir HFA] 90 mcg/actuation HFA aerosol inhaler 2 puff PO Q2H PRN (Reason: for wheezing) Qty: 8.5 6RF levothyroxine 50 mcg tablet 50 mcg PO DAILY 30 Days Qty: 30 11RF insulin degludec [Tresiba FlexTouch U-100] 100 unit/mL (3 mL) insulin pen 14 unit subcut DAILY 30 Days Qty: 4.2 3RF insulin lispro 100 unit/mL insulin pen 1 sliding scale dose subcut USEASDIRECTD 30 Days Qty: 30 11RF Rx Instructions: 7 units with meals, 2 units with snacks. lancets [TRUEplus Lancets] 33 gauge misc 1 gauge miscellaneous QID 30 Days Qty: 100 11RF FreeStyle Lite Strips Strip 1 strip miscellaneous QID 30 Days Qty: 150 11RF atorvastatin 40 mg tablet 40 mg PO DAILY 30 Days Qty: 30 2RF Rx Instructions: Complete labs for further refills. acetaminophen 500 mg tablet 1,000 mg PO QID PRN (Reason: pain) Qty: 30 0RF cyclobenzaprine 5 mg tablet 5 mg PO TID PRN (Reason: muscle spasm) Qty: 10 0RF acetaminophen [Tylenol Extra Strength] 500 mg tablet 500 mg PO Q6H PRN (Reason: pain) Qty: 30 0RF lidocaine [Lidoderm] 5 % adhesive patch,medicated 1 patch topical DAILY Qty: 30 0RF Rx Instructions: leave on most painful area for up to 12 hrs metformin 1,000 mg tablet 1,000 mg PO BID lisinopril 10 mg tablet 10 mg PO DAILY cholecalciferol (vitamin D3) 25 mcg (1,000 unit) capsule 25 mcg PO DAILY gabapentin 300 mg capsule 300 mg PO BEDTIME (DME) FreeStyle Logan 2 Sensor Kit See Rx Instructions .ROUTE Q2W Qty: 1 Rx Instructions: As directed nicotine (polacrilex) 2 mg lozenge 2 mg PO lidocaine 5 % adhesive patch,medicated 0 patch topical vitamin E (dl, acetate) 180 mg (400 unit) capsule 180 mg PO QAM ascorbic acid (vitamin C) [Vitamin C] 500 mg tablet 500 mg PO QAM Referrals: Alanna Godienz FNP [Primary Care Provider] - Print Language: Tristanian
[2024-02-21 11:19] VITALS: BP 130/70; PULSE 77; RESP 14; TEMP 36.8; O2SAT 99
== END 2024-02-21 11:20 | disposition home or self-care (01) ==
PROVIDERS: Emergency Provider Emergency Medicine; PCP Registered Nurse
DX: M54.12 Radiculopathy, cervical region (principal); M25.511 Pain in right shoulder; E11.9 Type 2 diabetes mellitus without complications; I10 Essential (primary) hypertension; E78.5 Hyperlipidemia, unspecified; Z87.891 Personal history of nicotine dependence
CPT/HCPCS: 99282; 99283

== ENCOUNTER 2024-03-31 11:56 | Outpatient (REF) | payer MEDICAID, SELFPAY ==
--- NOTE | ~2024-03-31 | US_ITS ---
EXAMINATION: US SCREENING ULTRASOUND BREAST, BILATERAL CLINICAL INFORMATION: Dense breasts on mammography. Screening ultrasound. Patient refuses mammography. COMPARISON: 02/14/2023 screening breast ultrasound. TECHNIQUE: Ultrasound is performed using grayscale imaging and color Doppler. Imaging is performed to include the four quadrants and retroareolar region, as well as the axilla. Both breasts are imaged. FINDINGS: Right breast: There is no suspicious finding by ultrasound. There is no solid mass or focal architectural abnormality. There are a few scattered benign small subcentimeter cysts. Left breast: There is no suspicious finding by ultrasound. There is no solid mass or focal architectural abnormality. There are a few scattered benign small subcentimeter cysts. US/US breast BI complete IMPRESSION: No suspicious findings on screening breast ultrasound. Benign findings. ASSESSMENT: BI-RADS 2 - Benign Findings RECOMMENDATION: 1 year F/U This patient's information was entered into a reminder system with a target due date for their next mammogram. Electronically signed by: Henry Miles MD 04/01/2024 12:51 PM EDT
== END 2024-03-31 11:57 | disposition home or self-care (01) ==
LOC: HO.MAMMO 11:56
PROVIDERS: PCP Registered Nurse; Visit Provider Registered Nurse
DX: Z12.39 Encounter for other screening for malignant neoplasm of breast (principal); R92.30 Dense breasts, unspecified
CPT/HCPCS: 76641

== ENCOUNTER → 2024-03-31 12:00 | Outpatient (BNV) | payer MEDICAID, SELFPAY | PROVIDERS: PCP Registered Nurse; Visit Provider Radiology Diagnostic Radiology | DX: R92.8 Other abnormal and inconclusive findings on diagnostic imaging of breast (principal) | CPT/HCPCS: 76641 ==

== ENCOUNTER 2024-04-09 10:57 | Emergency (ER) | payer MEDICAID, SELFPAY ==
[2024-04-09 11:21] VITALS: BP 140/78; PULSE 89; RESP 20; TEMP 35.9; O2SAT 97; BMI 27.1
--- NOTE | 2024-04-09 11:28 | ED.EXTPRO ---
HPI - Extremity Problem General Chief complaint: Extremity Injury, Upper Stated complaint: Shoulder pain Time Seen by Provider: 04/09/24 11:56 Source: patient Mode of arrival: ambulatory Limitations: no limitations History of Present Illness ED Provider: Tyree Best HPI Narrative: 63 yold female with pmh chronic right shoulder pain, HPV, Asthma/COPD, hypothyroidism, HLD presents to the ED for chronic Right shoulder pain and requesting and MRI. patient states her Chiropractor informed yesterday she should get an MRI for tendoninitis of her shoulder or rule out shoulder muscle tear. patient denies any recent truama to shoulder, swelling, redness, weaknss, posterior/anterior neck pain, slurred speech, facial droop, headache, loss of vision, or paralysis of extremities. Related Data Home Medications ?Medication ?Instructions ?Recorded ?Confirmed cholecalciferol (vitamin D3) 25 25 mcg PO DAILY 08/04/20 08/02/22 mcg (1,000 unit) capsule gabapentin 300 mg capsule 300 mg PO BEDTIME 08/04/20 08/02/22 lisinopril 10 mg tablet 10 mg PO DAILY 08/04/20 08/02/22 metformin 1,000 mg tablet 1,000 mg PO BID 08/04/20 08/02/22 ascorbic acid (vitamin C) 500 mg 500 mg PO QAM 03/11/23 tablet (Vitamin C) flash glucose sensor (FreeStyle #1 ea 03/11/23 Logan 2 Sensor kit) lidocaine 5 % topical patch 0 patch topical 03/11/23 nicotine (polacrilex) 2 mg buccal 2 mg PO 03/11/23 lozenge vitamin E (dl, acetate) 180 mg 180 mg PO QAM 03/11/23 (400 unit) capsule Previous Rx's ?Medication ?Instructions ?Recorded pen needle, diabetic 32 gauge x #100 ea 06/08/2008/01 (BD Ultra-Fine Micro Pen Needle) albuterol sulfate 90 mcg/actuation 2 puff PO Q2H PRN for wheezing 02/13/21 aerosol inhaler (ProAir HFA) #8.5 grams levothyroxine 50 mcg tablet 50 mcg PO DAILY 30 days #30 tabs 12/14/21 acetaminophen 500 mg tablet 1,000 mg (2 x 500 mg) PO QID PRN 01/28/22 pain #30 tabs cyclobenzaprine 5 mg tablet 5 mg PO TID PRN muscle spasm #10 01/28/22 tabs insulin degludec 100 unit/mL (3 14 unit (0.14 mL) subcut DAILY 30 06/28/22 mL) subcutaneous pen (Tresiba days #4.2 mL FlexTouch U-100 insulin) insulin lispro 100 unit/mL 1 sliding scale dose subcut 08/29/22 subcutaneous pen USEASDIRECTD 30 days #30 mL lancets 33 gauge (TRUEplus Lancets) 1 gauge miscellaneous QID for 09/04/22 diabetes mellitus 30 days #100 ea blood sugar diagnostic (FreeStyle 1 strip miscellaneous QID for 10/29/22 Lite Strips) diabetes mellitus 30 days #150 strips atorvastatin 40 mg tablet 40 mg PO DAILY 30 days #30 tabs 11/08/22 acetaminophen 500 mg tablet 500 mg PO Q6H PRN pain #30 tabs 08/11/23 (Tylenol Extra Strength) lidocaine 5 % topical patch 1 patch topical DAILY #30 ea 08/11/23 (Lidoderm) cyclobenzaprine 5 mg tablet 5 mg PO TID PRN muscle spasm #20 02/21/24 tabs lidocaine 5 % topical patch 2 patch topical DAILY #30 ea 02/21/24 cyclobenzaprine 10 mg tablet 10 mg PO TID PRN muscle spasm 5 04/09/24 days #15 tabs oxycodone 5 mg capsule 5 mg PO Q8H PRN pain 3 days #9 caps 04/09/24 prednisone 20 mg tablet 40 mg (2 x 20 mg) PO DAILY 5 days 04/09/24 #10 tabs Allergies Allergy/AdvReac Type Severity Reaction Status Date / Time meperidine [From DEMEROL] Allergy Intermediate HALLUCINATI Verified 04/09/24 11:25 ONS Review of Systems Review of Systems: Chronic right shoulder pain Yes all other systems are reviewed and are negative [facility] Past Medical History Medical History Cervical high risk HPV (human papillomavirus) test positive Vitamin D deficiency Hypothyroidism Multinodular thyroid HLD (hyperlipidemia) HTN (hypertension) T2DM (type 2 diabetes mellitus) Surgical History History of lipoma History of excision of mass (10/11/22) History of thyroid surgery Hx of colonoscopy Hx of hand surgery Hx of tubal ligation Hx of eye surgery Family History Family History Father Diabetes CVD (cardiovascular disease) Myocardial infarction Mother Diabetes CVD (cardiovascular disease) Breast cancer Sister Breast cancer Social History Social History Household Members Other:: son Housing: Apartment Alcohol intake: never Patient Tobacco Use Status: Former Tobacco user Tobacco use type: Cigarette Years Smoked: 40 Advance Directives: No Advance Directives Information Provided: Yes Do you have a plan to hurt others: No Plan Sexual orientation: Straight/Heterosexual Gender identity: Female Physical Exam Vital Signs: Vital Signs: Last Vital Signs Temp 96.6 F L 04/09/24 12:22 Pulse 89 04/09/24 12:22 Resp 20 04/09/24 12:22 BP 140/78 H 04/09/24 12:22 Pulse Ox 97 04/09/24 12:22 O2 Del Method Room Air 04/09/24 12:22 BMI result Body Mass Index 27.1 Const: General: cooperative, healthy appearing, comfortable, no acute distress, well developed, alert, awake and Physically active Orientation/consciousness: patient oriented x3 HEENT: Head: Yes normal to inspection, Yes No palpable skull fracture present, Yes normocephalic and Yes atraumatic Ears: hearing grossly normal bilaterally, external ears normal, TM's normal bilaterally, TM normal on the right, TM normal on the left and EAC's normal Throat: Yes posterior oropharynx normal, Yes tonsils normal and Yes uvula midline Eyes: General: appearance normal, both eyes and all related structures Neck: Neck: Yes normal visual inspection, Yes full ROM, Yes no lymphadenopathy, Yes no meningeal signs, Yes trachea midline, Yes supple, No anterior neck swelling and No tender Chest: Chest palpation & inspection: normal inspection of the chest and normal palpation of entire chest wall Resp: Effort & Inspection: normal respiratory effort and able to speak in complete sentences Auscultation: clear to auscultation bilaterally GI: Inspection: Yes normal to inspection and No abdominal wall ecchymosis Palpation (GI): Soft to palpation, not firm, nontender, no guarding and not rigid : General: Yes no CVA tenderness Back/Spine/Pelvis: Back: no CVA tenderness and No back tenderness Skin: General skin exam: no rashes or lesions noted, elasticity normal and turgor normal Neuro: General: patient oriented x3, gait normal, tone normal, moves all extremities, Normal light touch and pain sensation, no meningeal signs, no focal motor deficits, CN's II-XI intact bilaterally and normal sensation to monofilament Extrem: General: Yes normal to inspection, Yes full ROM and Yes capillary refill normal Shoulder/upper arm images: 1. positive for mild tenderness. negative for swelling, redness, bluish/black dislcoration, hotness, coldness, crepitus, or deformity. Neuro, vascular, and motor exam is intact of extremity Psych: Appearance: grossly normal, well kempt and not disheveled Medical Decision Making Medical Decision Making MDM Narrative: 63 yoeric sapp with past medical history of diabetes, presents to ED for chronic right shoulder pain. Patient was seen by chiropractor yesterday who informed her she would need a right shoulder MRI due to right shoulder pain. Patient denies any chiropractor neck work. Patient denies any weakness in right upper extremity, swelling, redness, recent trauma, or any severe tingling. Patient denies any anterior or posterior neck pain. No signs of DVT, cord compression, epidural abscess, cauda equina fracture, aterial oclusion, cellulitis, compartment syndrome, or stroke. No need for repeat xray. no new trauma. normal xray in 2022 when chart reviwed. no need for ultrasound. no need for emergent MRI Differential Diagnosis Differential Diagnoses: The differential diagnosis associated with the presentation includes (Chronic shoulder pain, muscle tear, arthritis) Admission/Observation Consideration of admission/observation: Escalation of care including admission/observation considered Independent Historian Clinical information obtained from an independent historian. History obtained from or confirmed by: Other (patient) External Record Review External record reviewed: Other (prior visits) Prescription Management I considered prescription management with: Pain Medication and Other (short course steroids) Discharge Plan Discharge Clinical Impression: Right shoulder pain Patient Disposition: Home, Self-Care Instructions: Shoulder Pain (ED), Warm Compress or Soak (ED) Additional Instructions: Recommend follow-up with primary care provider for physical therapist referral and MRI. Presently no emergent need for MRI in the ED but may need as outpatient. Return to the ED immediately for upper extremity swelling, chest pain, shortness of breath, bluish discoloration, weakness, paralysis, severe tingling, neck pain, neck stiffness, headache, fever, chills, slurred speech, facial droop, paralysis of extremities, or any other concerning symptoms. Prescriptions: New prednisone 20 mg tablet 40 mg PO DAILY 5 Days Qty: 10 0RF cyclobenzaprine 10 mg tablet 10 mg PO TID PRN (Reason: muscle spasm) 5 Days Qty: 15 0RF Rx Instructions: Do not take work or while driving. Do not take with oxycodone at the same time. oxycodone 5 mg capsule 5 mg PO Q8H PRN (Reason: pain) 3 Days Qty: 9 0RF Rx Instructions: Partial Fill upon patient request. No Action (DME) pen needle, diabetic [BD Ultra-Fine Micro Pen Needle] 32 gauge x 1/4 needle See Rx Instructions .ROUTE .MEDSUPPLY Qty: 100 11RF Rx Instructions: 4x daily albuterol sulfate [ProAir HFA] 90 mcg/actuation HFA aerosol inhaler 2 puff PO Q2H PRN (Reason: for wheezing) Qty: 8.5 6RF levothyroxine 50 mcg tablet 50 mcg PO DAILY 30 Days Qty: 30 11RF insulin degludec [Tresiba FlexTouch U-100] 100 unit/mL (3 mL) insulin pen 14 unit subcut DAILY 30 Days Qty: 4.2 3RF insulin lispro 100 unit/mL insulin pen 1 sliding scale dose subcut USEASDIRECTD 30 Days Qty: 30 11RF Rx Instructions: 7 units with meals, 2 units with snacks. lancets [TRUEplus Lancets] 33 gauge misc 1 gauge miscellaneous QID 30 Days Qty: 100 11RF FreeStyle Lite Strips Strip 1 strip miscellaneous QID 30 Days Qty: 150 11RF atorvastatin 40 mg tablet 40 mg PO DAILY 30 Days Qty: 30 2RF Rx Instructions: Complete labs for further refills. acetaminophen 500 mg tablet 1,000 mg PO QID PRN (Reason: pain) Qty: 30 0RF cyclobenzaprine 5 mg tablet 5 mg PO TID PRN (Reason: muscle spasm) Qty: 10 0RF acetaminophen [Tylenol Extra Strength] 500 mg tablet 500 mg PO Q6H PRN (Reason: pain) Qty: 30 0RF lidocaine [Lidoderm] 5 % adhesive patch,medicated 1 patch topical DAILY Qty: 30 0RF Rx Instructions: leave on most painful area for up to 12 hrs cyclobenzaprine 5 mg tablet 5 mg PO TID PRN (Reason: muscle spasm) Qty: 20 0RF lidocaine 5 % adhesive patch,medicated 2 patch topical DAILY Qty: 30 0RF Rx Instructions: leave on most painful area for up to 12 hrs metformin 1,000 mg tablet 1,000 mg PO BID lisinopril 10 mg tablet 10 mg PO DAILY cholecalciferol (vitamin D3) 25 mcg (1,000 unit) capsule 25 mcg PO DAILY gabapentin 300 mg capsule 300 mg PO BEDTIME (DME) FreeStyle Logan 2 Sensor Kit See Rx Instructions .ROUTE Q2W Qty: 1 Rx Instructions: As directed nicotine (polacrilex) 2 mg lozenge 2 mg PO lidocaine 5 % adhesive patch,medicated 0 patch topical vitamin E (dl, acetate) 180 mg (400 unit) capsule 180 mg PO QAM ascorbic acid (vitamin C) [Vitamin C] 500 mg tablet 500 mg PO QAM Stand Alone Forms: Work/School Release Interventions: ED Discharge Assessment Last Done: 04/09/24 12:22 Discharge Date/Time: 04/09/24 12:24 Print Language: [place]an
[2024-04-09 12:22] VITALS: BP 140/78; PULSE 89; RESP 20; TEMP 35.9; O2SAT 97
== END 2024-04-09 12:24 | disposition home or self-care (01) ==
PROVIDERS: Emergency Provider Emergency Medicine
DX: M25.511 Pain in right shoulder (principal); Z79.899 Other long term (current) drug therapy; Z87.891 Personal history of nicotine dependence
CPT/HCPCS: 99282; 99283

== ENCOUNTER 2024-05-13 09:54 | Outpatient (AMB) | payer MEDICAID, SELFPAY ==
[2024-05-13 09:55] VITALS: BP 124/80; BMI 26.9
--- NOTE | 2024-05-13 09:55 | MHC.OFFVIS ---
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 No complaints. Last Pap/HPV was negative/HPV positive in 03/20, colpo/biopsy was negative, this was preceded by negative Pap/HPV positive in 02/16 followed by negative colpo/biopsy/ECC Last Mammogram was in 06/18 was negative Last Colonoscopy was in 2019, the recommendation was to repeat in 5 years COUNT INCLUDES THE [facility] Medical History Cervical high risk HPV (human papillomavirus) test positive Vitamin D deficiency Hypothyroidism Multinodular thyroid HLD (hyperlipidemia) HTN (hypertension) T2DM (type 2 diabetes mellitus) Surgical History History of lipoma History of excision of mass (05/08/22) History of thyroid surgery Hx of colonoscopy Hx of hand surgery Hx of tubal ligation Hx of eye surgery Family History Father Diabetes CVD (cardiovascular disease) Myocardial infarction Mother Diabetes CVD (cardiovascular disease) Breast cancer Sister Breast cancer Social History Household Members Other:: son Housing: Apartment Alcohol intake: never Patient Tobacco Use Status: Former Tobacco user Tobacco use type: Cigarette Years Smoked: 40 Sexual orientation: Straight/Heterosexual Gender identity: Female Female Reproductive History Menstrual Age of Menarche: 12 control method: permanent sterilization Menopause type: natural Date of last pap smear: 03/12/23 History of abnormal pap smear: Yes (HPV +) Review of Systems Const All systems reviewed & are unremarkable except as noted in HPI and below Card Reports as per HPI Resp Reports as per HPI GI Reports as per HPI and Reports no additional complaints Reports as per HPI Physical Exam Vital Signs: Last Vital Signs BP 124/80 05/13/24 09:55 BMI result Body Mass Index 26.9 Const General: cooperative, healthy appearing and comfortable Chest Chest palpation & inspection: normal inspection of the chest and normal palpation of entire chest wall Breast/axilla inspection: normal inspection of the breasts and normal inspection of the axillae Breast/axilla palpation: normal palpation of the breasts, normal palpation of the axillae and no axillary lymphadenopathy Resp Effort & Inspection: normal respiratory effort Auscultation: clear to auscultation bilaterally Percussion: percussion normal Cardio Palpation: normal PMI Rate: regular rate Rhythm: regular rhythm Heart sounds: no murmurs and no rubs Peripheral pulses: Peripheral pulses 2+ throughout GI Inspection: Yes normal to inspection Palpation (GI): Soft to palpation, nontender, no guarding, not rigid and No hepatosplenomegaly present Percussion: Yes normal to percussion Auscultation: normal bowel sounds Rectal Exam - Female: deferred General: Yes bladder normal to palpation External Female Exam: No lesion Speculum Exam - Vagina: normal appearance of the vagina, normal palpation, normal vaginal discharge and not erythematous Speculum Exam - Cervix: normal appearance of the cervix and normal palpation Bimanual exam- vagina & uterus: normal bimanual exam, normal palpation, uterine size normal, bladder normal to palpation, consistency normal and normal palpation Bimanual Exam- Adnexa, other: normal adnexae, no masses and no tenderness Assessment & Plan Assessment & Plan (1) Well woman exam: Code(s): Z01.419 - Encounter for gynecological examination (general) (routine) without abnormal findings Category: Medical Plan: Co testing done. Counseled the patient about the recommended dietary allowance of 1200 mg of Calcium & 600 IU of vitamin D. Mammogram ordered. The patient was instructed to perform monthly self-breast exams and schedule annual exam in a year. All questions answered and the patient verbalized understanding. Coding Level of Care Code Est Pt Prev Care 40-64y(10984) Diagnoses Well woman exam Z01.419
== END 2024-05-13 10:33 | disposition home or self-care (01) ==
LOC: HO.HWS 09:54
PROVIDERS: PCP Registered Nurse; Visit Provider Obstetrics & Gynecology
DX: Z01.419 Encounter for gynecological examination (general) (routine) without abnormal findings (principal)
CPT/HCPCS: 99396

== ENCOUNTER 2024-05-27 12:52 | Outpatient (REF) | payer MEDICAID, SELFPAY ==
--- NOTE | ~2024-05-27 | FL_ITS ---
FLUOROSCOPIC RIGHT SHOULDER ARTHROGRAM INDICATIONS: Right shoulder pain. Intra-articular gadolinium injection is needed prior to MRI. PROCEDURE: Risks and benefits and possible complications were discussed with the patient and the consent form was signed. The patient was placed supine on the fluoroscopy table. The right shoulder was prepped and draped in normal sterile fashion. 1% buffered lidocaine was used for anesthesia. A 22-gauge spinal needle was used to access the shoulder joint. Intra-articular position of the needle within the shoulder joint was verified using 3 cc of Omnipaque 300. A total of 10 mL of gadolinium/saline (1:200) contrast mixture was then injected into the shoulder joint. The needle was then removed and a Band-Aid was applied to the injection site. The patient tolerated the procedure well and was sent to MRI. There were no immediate complications. Postinjection imaging demonstrates no evidence of full-thickness rotator cuff tear. There is mild subacromial spurring. FL/FL arthrogram shoulder RT IMPRESSION: Successful fluoroscopic guided intra-articular instillation of dilute gadolinium into the right shoulder joint. Patient will undergo subsequent right shoulder MRI. The procedure was performed by orlando Jolley PA-C, and directly supervised by Dr. Miles. Electronically signed by: Henry Miles MD 05/28/2024 02:04 PM EDT
--- NOTE | ~2024-05-27 | MR_ITS ---
EXAMINATION: MR SHOULDER WITH CONTRAST, RIGHT CLINICAL INFORMATION: Worsening chronic right shoulder pain. COMPARISON: None available. TECHNIQUE: MRI of the shoulder was performed following the intra-articular administration of a dilute gadolinium-containing solution (arthrogram) on a high-field scanner. FINDINGS: ROTATOR CUFF: Mild-moderate supraspinatus tendinosis. Mild infraspinatus tendinosis. No tear is seen. Teres minor is intact. There is T2 signal in the subscapularis tendon from the procedure plus/minus underlying tendinosis. No measurable tear is seen. No muscle atrophy or fatty infiltration. BICEPS: Intact. CORACOACROMIAL ARCH: The undersurface of the acromion is mildly curved with no subacromial spur. Mild-moderate acromioclavicular arthritis. Trace subacromial-subdeltoid bursitis. LABRUM/CAPSULE: No labral tear is seen. GLENOHUMERAL JOINT/MARROW: No fracture. No aggressive marrow-replacing lesion. Degenerative changes versus vascularity in the posterior greater tuberosity. MR/MR shoulder RT w con IMPRESSION: 1. Mild-moderate supraspinatus tendinosis. Mild infraspinatus tendinosis. No measurable rotator cuff tear is seen. 2. Mild-moderate acromioclavicular arthritis. 3. Trace subacromial-subdeltoid bursitis. Electronically signed by: Enio Zepeda MD 06/19/2024 01:05 PM [facility]
== END 2024-05-27 12:53 | disposition home or self-care (01) ==
LOC: HO.XRAY 12:52
PROVIDERS: PCP Registered Nurse; Visit Provider Emergency Medicine
DX: M25.511 Pain in right shoulder (principal)
CPT/HCPCS: 23350; 73040; 73222

== ENCOUNTER → 2024-05-27 13:20 | Outpatient (BNV) | payer MEDICAID, SELFPAY | PROVIDERS: PCP Registered Nurse; Visit Provider Physician Assistant Surgical | DX: M25.551 Pain in right hip (principal) | CPT/HCPCS: 23350; 73040 ==

== ENCOUNTER 2024-09-16 11:29 | Emergency (ER) | payer MEDICAID, SELFPAY ==
[2024-09-16 11:55] VITALS: BP 161/67; PULSE 98; RESP 20; TEMP 37.3; O2SAT 98; BMI 27.2
--- NOTE | 2024-09-16 11:55 | ED.GENADULT ---
HPI - General Adult General Chief complaint: Extremity Injury, Upper Stated complaint: R Shoulder Pain Time Seen by Provider: 09/16/24 12:05 Source: patient, RN notes reviewed and old records reviewed Mode of arrival: ambulatory Limitations: language barrier History of Present Illness ED Provider: Astrid HPI narrative: 64-year-old female presents for evaluation of right shoulder pain. She has a history of chronic shoulder pain. She reports she had an MRI in April of last year, 4 months ago The patient reports that she has ?a pinched nerve, arthritis, bursitis, tendonitis. She gets no relief from Tylenol, gabapentin, physical therapy or chiropractor She was here for pain control, denies any new injury. The pain is 05/07 Related Data Home Medications ?Medication ?Instructions ?Recorded ?Confirmed cholecalciferol (vitamin D3) 25 25 mcg PO DAILY 08/04/20 08/02/22 mcg (1,000 unit) capsule gabapentin 300 mg capsule 300 mg PO BEDTIME 08/04/20 08/02/22 lisinopril 10 mg tablet 10 mg PO DAILY 08/04/20 08/02/22 metformin 1,000 mg tablet 1,000 mg PO BID 08/04/20 08/02/22 ascorbic acid (vitamin C) 500 mg 500 mg PO QAM 03/11/23 tablet (Vitamin C) flash glucose sensor (FreeStyle #1 ea 03/11/23 Logan 2 Sensor kit) lidocaine 5 % topical patch 0 patch topical 03/11/23 nicotine (polacrilex) 2 mg buccal 2 mg PO 03/11/23 lozenge vitamin E (dl, acetate) 180 mg 180 mg PO QAM 03/11/23 (400 unit) capsule Previous Rx's ?Medication ?Instructions ?Recorded pen needle, diabetic 32 gauge x #100 ea 06/08/2008/01 (BD Ultra-Fine Micro Pen Needle) albuterol sulfate 90 mcg/actuation 2 puff PO Q2H PRN for wheezing 02/13/21 aerosol inhaler (ProAir HFA) #8.5 grams levothyroxine 50 mcg tablet 50 mcg PO DAILY 30 days #30 tabs 12/14/21 acetaminophen 500 mg tablet 1,000 mg (2 x 500 mg) PO QID PRN 01/28/22 pain #30 tabs cyclobenzaprine 5 mg tablet 5 mg PO TID PRN muscle spasm #10 01/28/22 tabs insulin degludec 100 unit/mL (3 14 unit (0.14 mL) subcut DAILY 30 06/28/22 mL) subcutaneous pen (Tresiba days #4.2 mL FlexTouch U-100 insulin) insulin lispro 100 unit/mL 1 sliding scale dose subcut 08/29/22 subcutaneous pen USEASDIRECTD 30 days #30 mL lancets 33 gauge (TRUEplus Lancets) 1 gauge miscellaneous QID for 09/04/22 diabetes mellitus 30 days #100 ea blood sugar diagnostic (FreeStyle 1 strip miscellaneous QID for 10/29/22 Lite Strips) diabetes mellitus 30 days #150 strips atorvastatin 40 mg tablet 40 mg PO DAILY 30 days #30 tabs 11/08/22 acetaminophen 500 mg tablet 500 mg PO Q6H PRN pain #30 tabs 08/11/23 (Tylenol Extra Strength) lidocaine 5 % topical patch 1 patch topical DAILY #30 ea 08/11/23 (Lidoderm) cyclobenzaprine 5 mg tablet 5 mg PO TID PRN muscle spasm #20 02/21/24 tabs lidocaine 5 % topical patch 2 patch topical DAILY #30 ea 02/21/24 cyclobenzaprine 10 mg tablet 10 mg PO TID PRN muscle spasm 5 04/09/24 days #15 tabs oxycodone 5 mg capsule 5 mg PO Q8H PRN pain 3 days #9 caps 04/09/24 prednisone 20 mg tablet 40 mg (2 x 20 mg) PO DAILY 5 days 04/09/24 #10 tabs ibuprofen 600 mg tablet 600 mg PO Q6H PRN pain #20 tabs 09/16/24 oxycodone 5 mg tablet 5 mg PO Q6H PRN pain #16 tabs 09/16/24 Allergies Allergy/AdvReac Type Severity Reaction Status Date / Time meperidine [From DEMEROL] Allergy Intermediate HALLUCINATI Verified 09/16/24 11:57 ONS Review of Systems Constitutional: Constitutional: Denies body ache(s), Denies chills and Denies fever(s) Cardiovascular: Cardiovascular: Denies chest pain Musculoskeletal: Musculoskeletal: Reports arthralgias and Reports limited range of motion Integumentary/Breasts: Skin/Breast: Denies rash PMFSH Past Medical History Medical History Cervical high risk HPV (human papillomavirus) test positive Vitamin D deficiency Hypothyroidism Multinodular thyroid HLD (hyperlipidemia) HTN (hypertension) T2DM (type 2 diabetes mellitus) Surgical History History of lipoma History of excision of mass (05/08/22) History of thyroid surgery Hx of colonoscopy Hx of hand surgery Hx of tubal ligation Hx of eye surgery Family History Family History Father Diabetes CVD (cardiovascular disease) Myocardial infarction Mother Diabetes CVD (cardiovascular disease) Breast cancer Sister Breast cancer Social History Social History Household Members Other:: son Housing: Apartment Alcohol intake: never Patient Tobacco Use Status: Former Tobacco user Tobacco use type: Cigarette Years Smoked: 40 Sexual orientation: Straight/Heterosexual Gender identity: Female Physical Exam ED Const General: healthy appearing, comfortable, no acute distress, alert and awake Nutritional Appearance: well nourished Orientation/consciousness: patient oriented x3 HENMT Head: Yes normocephalic and Yes atraumatic Eyes Eyelids: Yes eyelids normal Conjunctivae: conjunctivae normal Sclerae: sclerae normal Corneas: corneas normal Pupils: Equal, round and reactive pupils present EOM: EOMs intact bilaterally Neck Neck: Yes full ROM Resp Effort & Inspection: normal respiratory effort, able to speak in complete sentences and not labored Skin General skin exam: elasticity normal Neuro General: patient oriented x3 Cranial nerves: Yes Equal, round and reactive pupils present and Yes Bilaterally intact EOM present Cognition (Neuro): normal cognition Extrem Other: Noted deformity to the right shoulder. The patient has good range of motion to the right shoulder, elbow and wrist. Medical Decision Making Medical Decision Making MDM Narrative: 64-year-old female presents for evaluation of right shoulder pain. This is a chronic issue, no acute pain. She had an MRI in April of last year, within the last 4 months. I do not see any indication for further imaging or workup at this time. We will discharge the patient with a short course of ibuprofen and oxycodone. Differential Diagnosis Differential Diagnoses: The differential diagnosis associated with the presentation includes Arthritis Tendonitis Bursitis Shoulder pain Radiculopathy Discharge Plan Discharge Clinical Impression: Right shoulder pain Patient Disposition: Home, Self-Care Instructions: Arthralgia (ED), Shoulder Pain (ED) Additional Instructions: I prescribed a short course of oxycodone for your pain. This is not a good long-term solution for chronic pain. It is important that you follow-up with your primary doctor and pain management You may also use ibuprofen and Tylenol for your pain Oxycodone may make you drowsy, do not drink alcohol or drive after taking it Prescriptions: New oxycodone 5 mg tablet 5 mg PO Q6H PRN (Reason: pain) Qty: 16 0RF Rx Instructions: Partial Fill upon patient request. ibuprofen 600 mg tablet 600 mg PO Q6H PRN (Reason: pain) Qty: 20 0RF No Action (DME) pen needle, diabetic [BD Ultra-Fine Micro Pen Needle] 32 gauge x 1/4 needle See Rx Instructions .ROUTE .MEDSUPPLY Qty: 100 11RF Rx Instructions: 4x daily albuterol sulfate [ProAir HFA] 90 mcg/actuation HFA aerosol inhaler 2 puff PO Q2H PRN (Reason: for wheezing) Qty: 8.5 6RF levothyroxine 50 mcg tablet 50 mcg PO DAILY 30 Days Qty: 30 11RF insulin degludec [Tresiba FlexTouch U-100] 100 unit/mL (3 mL) insulin pen 14 unit subcut DAILY 30 Days Qty: 4.2 3RF insulin lispro 100 unit/mL insulin pen 1 sliding scale dose subcut USEASDIRECTD 30 Days Qty: 30 11RF Rx Instructions: 7 units with meals, 2 units with snacks. lancets [TRUEplus Lancets] 33 gauge misc 1 gauge miscellaneous QID 30 Days Qty: 100 11RF FreeStyle Lite Strips Strip 1 strip miscellaneous QID 30 Days Qty: 150 11RF atorvastatin 40 mg tablet 40 mg PO DAILY 30 Days Qty: 30 2RF Rx Instructions: Complete labs for further refills. acetaminophen 500 mg tablet 1,000 mg PO QID PRN (Reason: pain) Qty: 30 0RF cyclobenzaprine 5 mg tablet 5 mg PO TID PRN (Reason: muscle spasm) Qty: 10 0RF acetaminophen [Tylenol Extra Strength] 500 mg tablet 500 mg PO Q6H PRN (Reason: pain) Qty: 30 0RF lidocaine [Lidoderm] 5 % adhesive patch,medicated 1 patch topical DAILY Qty: 30 0RF Rx Instructions: leave on most painful area for up to 12 hrs cyclobenzaprine 5 mg tablet 5 mg PO TID PRN (Reason: muscle spasm) Qty: 20 0RF lidocaine 5 % adhesive patch,medicated 2 patch topical DAILY Qty: 30 0RF Rx Instructions: leave on most painful area for up to 12 hrs prednisone 20 mg tablet 40 mg PO DAILY 5 Days Qty: 10 0RF cyclobenzaprine 10 mg tablet 10 mg PO TID PRN (Reason: muscle spasm) 5 Days Qty: 15 0RF Rx Instructions: Do not take work or while driving. Do not take with oxycodone at the same time. oxycodone 5 mg capsule 5 mg PO Q8H PRN (Reason: pain) 3 Days Qty: 9 0RF Rx Instructions: Partial Fill upon patient request. metformin 1,000 mg tablet 1,000 mg PO BID lisinopril 10 mg tablet 10 mg PO DAILY cholecalciferol (vitamin D3) 25 mcg (1,000 unit) capsule 25 mcg PO DAILY gabapentin 300 mg capsule 300 mg PO BEDTIME (DME) FreeStyle Logan 2 Sensor Kit See Rx Instructions .ROUTE Q2W Qty: 1 Rx Instructions: As directed nicotine (polacrilex) 2 mg lozenge 2 mg PO lidocaine 5 % adhesive patch,medicated 0 patch topical vitamin E (dl, acetate) 180 mg (400 unit) capsule 180 mg PO QAM ascorbic acid (vitamin C) [Vitamin C] 500 mg tablet 500 mg PO QAM Print Language: Amharic
[2024-09-16 12:17] VITALS: BP 161/67; PULSE 98; RESP 20; TEMP 37.3; O2SAT 98
--- OUTSIDE RECORDS SUMMARY | 2024-09-16 12:34 | XMS_ITS | Encounter Summary ---
Author Organization [facility] Address [address] [place] [id number] Care Team Providers Care Folder Seamer Automatic Name Role Phone Alanna Godinez ANNA Primary Care Provider [phone] Wendy Hill Unavailable Unavailable Christen Landis RN Unavailable [phone] Reason for Visit * Reason Comments Med Refill Encounter Details Date Type Department Care Team ([facility] st Contact Info) Description 11/08/2023 Refill [facility] [address], [place] [id number] Christen Andrade MD [address] [place] [address] Social History Tobacco Use Types Packs/Day Years Used Date Smoking Tobacco: Former Cigarettes Passive Smoke Exposure: Past Smokeless Tobacco: Never Comments:Currently quitting. Stop 09/16/2022 Alcohol Use Standard Drinks/Week Comments Never 0 (1 standard drink = 0.6 oz pur e alcohol) Depression Answer Date Recorded Patient Health Questionnaire-9 Score 0 01/10/2023 Housing Stability Answer Date Recorded What is your housing situation today? I have antwan nash 05/13/[address] you li ve. Do you have problems with any of the following? None of the above 05/13/2023 Food Insecurity Answer Date Recorded Within the past 12 months, y ou worried that your food would run out before you got money to buy more: Often true 10/15/2023 Within the past 12 months,th e food you bought just didn't last and you didn't have enough money to get more: Often true Transportation Answer Date Recorded In the past 12 months, has l ack of transportation kept you from medical appts, meetings, work or from getting things needed for daily living? No 05/13/2023 Utilities Answer Date Recorded In the past 12 months, has t he electric, gas, oil or water company threatened to shut off services in your home? No 05/13/2023 Depression Answer Date Recorded Patient Health Questionnaire-2 Score 0 01/10/2023 Comments Unknown Sex and Gender Information Value Date Recorded Sex Assigned at Female 05/28/2022 10:33 AM EDT Legal Sex Female 10:33 AM EDT Gender Identity Female 05/28/2022 10:33 AM EDT Sexual Orientation Straight 05/28/2022 10 :33 AM EDT documented as of this encounter Miscellaneous Notes * Telephone Encounter - Christen Andrade MD - 11/18/2023 9:30 AM EDT Rx approved. Please have patient schedule FU appt in derm clinic. Thanks. * Telephone Encounter - Christen Andrade MD - 11/18/2023 9:30 AM EDT Approving, but needs appt for additional refills. documented in this encounter Plan of Treatment Upcoming Encounters Date Type Department Care Team (Late st Contact Info) Description 09/23/2024 9:45 AM EST Office Visit [facility] [address] [place] [address] Alanna Godinez FNP [address] [place] [address] documented as of this encounter Goals Goal Patient Goal Type Associated Problems Recent Progress Patient-Stated? Author Short-term: Promote adherence to treatment regimen General No Juan Huang, PharmD Smoking cessation General No Juan Huang, YolyD Note: Continue using nicotine lozenges as needed Hemoglobin A1c < 7 Result Component 7.3( 4 11:22 AM EST) No Melani Louis documented as of this encounter Visit Diagnoses Not on filedocumented in this encounter Additional Health Concerns Assessment Noted Time PHQ-9 Depression Total Score: 0 01/11/20 23 1:31 PM EDT documented as of this encounter Care Teams Folder Seamer Automatic Relationship Specialty Start Date End Date Alanna Godinez FNP [address] [place] [address] PCP - General Family Medicine 11/29/22 Wendy Hill Community Health Worker 12/30/23 01/12/24 Christen Landis RN [address] [place] [id number] State'S Attorney 12/30/23 documented as of this encounter
--- OUTSIDE RECORDS SUMMARY | 2024-09-16 12:34 | XMS_ITS | Clinical Summary ---
Author Organization [employer] Address [address] [facility] [address] [place] [address] Care Team Providers Care Technical Cable Jointer Name Role Phone Alanna Godinez ANAN Primary Care Provider [phone] Christen Landis RN Unavailable [phone] Allergies Active Allergy Reactions Criticality Noted Date Comments Meperidine Hallucinations High 02/06/2023 Medications FREESTYLE LITE test strip TEST BLOOD SUGAR FOUR TIMES DAILY 06/25/20 22 Active capsaicin (Zostrix) 0.025 % creamIndications: Left shoulder pain, unspecified chronicity APPLY TO THE AFFECTED AREA(S) TWICE DAILY NEEDED FOR MILD PAIN. 60 g 2 12/27/19 23 Active Continuous Blood Gluc Hand Sewer Shoes (FreeStyle Logan 2 [place]) device Use to monitor blood sugar as directed 1 each 01/15/20 23 Active albuterol (2.5 MG/3ML) 0.083% nebulizer solutionIndicatio ns:Mild intermittent asthma without complication INHALE 1 AMPULE USING A NEBULIZER EVERY 6 HOURS NEEDED FOR WHEEZING OR SHORTNESS OF BREATH 90 mL 01/26/20 23 Active insulin pen needle (Novofine Pen Needle) 32G x 6 mm misc USE UP TO 6 TIMES PER DAY WITH INSULIN 100 each 11 08/29/19 24 Active cetirizine (ZyrTEC) 10 MG tabletIndications :Nasal congestion Take 1 tablet (10 mg) by mouth if needed each day for allergies (nasal congestion). 90 tablet 2 09/18/19 24 Active acetaminophen (Tylenol 8 Hour) 650 MG ER tablet TAKE 2 TABLETS BY MOUTH EVERY 8 HOURS NEEDED. DO NOT BREAK, CRUSH, DISSOLVE OR CHEW 100 tablet 2 10/01/19 24 Active mometasone (Elocon) 0.1 % ointment APPLY TOPICALLY TO AFFECTED AREA(S) IN THE MORNING 45 g 04/22/20 24 Active fluticasone (Flonase) 50 MCG/ACT nasal sprayIndications: Nasal congestion SPRAY 1 TO 2 SPRAYS IN EACH NOSTRIL TWICE DAILY IN THE MORNING AND IN THE EVENING NEEDED FOR RHINITIS OR FOR ALLERGIES 16 g 11 12/10/19 24 Active Alcohol Swabs (Alcohol Prep) 70 % padsIndications:T ype 2 diabetes mellitus without complication, with long-term current use of insulin (CMS/HCC) USE DIRECTED 100 each 11 01/27/20 24 Active atorvastatin (Lipitor) 40 MG tablet TAKE 1 TABLET BY MOUTH EVERY EVENING 90 tablet 3 01/31/20 24 Active Blood Glucose Monitoring Suppl (FreeStyle Goodell Lite) w/Device kitIndications:Ty pe 2 diabetes mellitus without complication, with long-term current use of insulin (CMS/HCC) Use to test blood sugar 2-3 times daily 1 kit 02/12/20 24 Active Alcohol Swabs 70 % padsIndications:T ype 2 diabetes mellitus without complication, with long-term current use of insulin (CMS/HCC) Use to test blood sugar 2-3 times daily 100 each 3 02/12/20 24 Active FREESTYLE LITE test stripIndications: Type 2 diabetes mellitus without complication, with long-term current use of insulin (CMS/HCC) Use to test blood sugar 2-3 times daily 100 each 12 02/12/20 24 025 Active Ruxolitinib Phosphate (Opzelura) 1.5 % creamIndications: Vitiligo Apply 15 g topically 2 times daily. Apply to affected area twice daily. 60 g 5 03/06/20 24 Active Continuous Glucose Sensor (FreeStyle Logan 2 Sensor) [facility] [place] [place] Use to monitor blood sugar as directed 6 each 3 03/11/20 24 Active TRUEplus Lancets 33G miscIndications:T ype 2 diabetes mellitus without complication, with long-term current use of insulin (CMS/HCC) USE DIRECTED TO TEST BLOOD SUGAR 2 OR 3 TIMES DAILY 100 each 11 04/06/20 24 Active insulin aspart FlexPen (NovoLOG) 100 UNIT/ML pen INJECT 4 UNITS SUBCUTANEOUSLY WITH BREAKFAST, 6 UNITS WITH LUNCH, 9 UNITS WITH DINNER, AND 2 UNITS WITH SNACKS UP TO 5 TIMES DAILY 15 mL 3 05/03/20 24 Active insulin glargine (Lantus SoloStar) 100 UNIT/ML penIndications:Ty pe 2 diabetes mellitus without complication, with long-term current use of insulin (CMS/[facility]) INJECT 20-24 UNITS SUBCUTANEOUSLY EVERY DAY DIRECTED 15 mL 3 05/27/20 24 Active empagliflozin (Jardiance) 25 MGIndications:Typ e 2 diabetes mellitus without complication, with long-term current use of insulin (CMS/HCC) Take 1 tablet (25 mg) by mouth Once per day. 90 tablet 1 06/24/20 24 025 Active gabapentin (Neurontin) 300 MG capsuleIndication s:Arthralgia of both hands,Neuropathic pain TAKE 1 CAPSULE BY MOUTH THREE TIMES DAILY 90 capsule 3 06/30/20 24 Active cholecalciferol (D3-1000) 25 MCG (1000 UT) capsuleIndication s:Vitamin D insufficiency TAKE 1 CAPSULE BY MOUTH EVERY MORNING 90 capsule 3 07/03/20 24 Active cyclobenzaprine (Flexeril) 10 MG tablet Take 10 mg by mouth if needed in the morning, at noon, and at bedtime for muscle spasms. 04/09/20 24 Active lisinopril 5 MG tabletIndications :Primary hypertension TAKE 1 TABLET BY MOUTH EVERY MORNING 90 tablet 1 07/10/20 24 Active pantoprazole (ProtoNix) 40 MG EC tablet TAKE 1 TABLET BY MOUTH EVERY MORNING BEFORE BREAKFAST 90 tablet 1 07/30/19 25 Active Ascorbic Acid (vitamin C) 500 MG tabletIndications :Healthcare maintenance TAKE 1 TABLET BY MOUTH EVERY MORNING 90 tablet 3 07/30/19 25 Active vitamin E 180 MG (400 UNIT) capsuleIndication s:Healthcare maintenance TAKE 1 CAPSULE BY MOUTH EVERY MORNING 90 capsule 3 07/30/19 25 Active levothyroxine (Synthroid, Levoxyl) 50 MCG tablet TAKE 1 TABLET BY MOUTH EVERY DAY BEFORE BREAKFAST 90 tablet 08/12/19 25 Active Active Problems Problem Noted Date Diagnosed Date Tendinosis of right shoulder 06/28/2024 Overview (06/28/2024): 05/27/24: [facility] [place]. Should[place] with contrast. 1. Mild-moderate supraspinatus tendinosis. Mild infraspinatus tendinosis. No measurable rotator cuff tear is seen. 2. Mild-moderate acromioclavicular arthritis. 3. Trace subacromial-subdeltoid bursitis. Assessment & Plan (06/28/2024 6:10 PM EST): Recommended referral to Ortho for further consult. Pt declines interest in any type of injection or invasive procedure at this time. Will let us know if she changes her mind in the future. Subdeltoid bursitis of right shoulder joint 120 07/2023 Overview (06/28/2024): 05/27/24: [facility] [place]. Shoulder with contrast. 1. Mild-moderate supraspinatus tendinosis. Mild infraspinatus tendinosis. No measurable rotator cuff tear is seen. 2. Mild-moderate acromioclavicular arthritis. 3. Trace subacromial-subdeltoid bursitis. Assessment & Plan (06/28/2024 6:11 PM EST): Declines referral to Ortho at this time, would like to cont following with chiropractic Arthritis of right acromioclavicular joint 06/28 Overview (06/28/2024): 05/27/24: [facility] [place] R. Shoulder with contrast. 1. Mild-moderate supraspinatus tendinosis. Mild infraspinatus tendinosis. No measurable rotator cuff tear is seen. 2. Mild-moderate acromioclavicular arthritis. 3. Trace subacromial-subdeltoid bursitis. Assessment & Plan (06/28/2024 6:12 PM EST): - Declines referral to Ortho at this time, would like to cont following with chiropractic - Given radicular symptoms and severity of pain limiting sleep, agreed for refill of short term course of prednisone and oxycodone. Reviewed med safety and SE. Advised to use oxycodone very sparingly PRN for severe pain. All questions reviewed. Vitiligo 12/04/2023 Overview (06/28/2024): Following with [facility] Derm team Did not receive much benefit with mometasone PA for Opzelura cream was approved Assessment & Plan (12/04/2023 8:40 PM EDT): Did not receive much benefit with mometasone, PA for Opzelura is pending. Cervical radiculopathy 05/27/2023 Healthcare maintenance 05/22/2023 Overview (06/28/2024): Pap: 03/11/23: Pap with Dr. Chiara PERAZA HPV positive. Colpo Apr 2023 showed mild inflamed endocervical and squamous epithelium with reactive changes. Plan for co-testing 12 months. Mammo: (ultrasounds instead of XR due to pt pain) BIRADS 2 on 03/31/24 Assessment & Plan (05/22/2023 7:05 AM EDT): -Pap: 03/11/23:[facility] TALENT ACQUISITION Dr. Guadarrama, annual exam. last Pap/HIV was negative/HPV positive in 02/16, colpo biopsy/ECC was negative -Mammo ultrasounds instead of XR due to pt pain. BIRADS 2, on 02/22/23. Plan for follow up in 1 year. 03/11/23: Pap with Dr. Chiara PERAZA HPV + 05/09/23: [facility]OR TALENT ACQUISITION - Dr. Guadarrama - for colposcopy. Plan for follow up in 2 weeks to review results. Asthma-COPD overlap syndrome 03/13/2023 HLD (hyperlipidemia) 03/13/2023 Cervical high risk HPV (human papillomavirus) te st positive 03/13/2023 Lipoma of back 03/13/2023 Pulmonary nodules 03/13/2023 Trigger middle finger of right hand 03/13/2023 Overview (07/07/2023): ?? 02/14/23: right middle finger trigger A1 edilson release at [facility] [place] ?? 06/26/23: follow up with surgeon, plan for ROM exercises 20x/day Assessment & Plan (06/09/2023 8:54 PM EST): Continues with [facility] for rehab Planning to follow up with [facility] for further eval Assessment & Plan (03/25/2023 9:16 AM EDT): Referral to [facility] for further assistance with rehab and ROM on 03/25/23 Vitamin D deficiency 03/13/2023 Chronic left shoulder pain 08/23/2022 Overview (07/07/2023): MRI shoulder 02/04/2019 with the following impression: 1. Supraspinatus, infraspinatus, and subscapularis tendinosis. No discrete tears. 2. Mild subacromial-subdeltoid bursitis. 3. Mild osteoarthritis of the acromioclavicular joint. 4. Lobulated low-grade lipomatous lesion in the subcutaneous tissues of the posterosuperior shoulder, likely a benign lipoma. No suspicious features. -Following with Chiropractic Jun 2023 with noted progress and improvement in ROM and pain control Assessment & Plan (03/25/2023 9:17 AM EDT): Referral to [address] [place] [address] for chiropractic eval and tx per pt preference Acquired hypothyroidism 08/05/2022 Assessment & Plan (06/09/2023 8:51 PM EST): Lab Results Component Value Date TSH 1.10 07/05/2022 -Continues with levothyroxine 50mcg daily -Repeat TSH ordered, pending Foot callus 08/05/2022 Hyperthyroidism 08/05/2022 Lipoma of left upper extremity 08/05/2022 Chronic hepatitis C 11/19/2018 Thyroid nodule 07/24/2018 Overview (12/04/2023): Following with [facility] Endo Assessment & Plan (12/04/2023 8:30 PM EDT): -Hx of partial thyroidectomy -2023: US thyroid with following impression: left mid-gland, 1.2x 0.6 x 1.5cm predominantly solid, hypoechoic, not [id number], smooth margin, no echogenic foci, TI-RADS Cat 4. -Pending review of consult/path notes, although pt reports interested in surgical removal over Q6 month screening Assessment & Plan (11/05/2022 6:52 PM EDT): -Ms. Edmondson w/ concens about potential damage from another FNA, would like to speak with surgeon first regarding risks/benefits -Referral to Miko Cardenas (previous surgeon for partial thyroidectomy) pending. -Provider and pt called their office and spoke with laborer [employer], they will plan to call pt directly to schedule Assessment & Plan (09/18/2022 8:42 PM EST): -Referral to [facility] Endo and previous surgeon placed -Discussed concens about potential damage from another FNA, would like to speak with surgeon first regarding risks/benefits Essential hypertension 01/17/2018 Mild intermittent asthma 01/17/2018 History of tobacco use 01/17/2018 Assessment & Plan (06/09/2023 8:53 PM EST): -Cont with [facility] Pharmacy smoking cessation clinic -Congratulated on smoking cessation (last cigg Aug 2022) Assessment & Plan (02/11/2023 9:05 PM EDT): -Cont with [facility] Pharmacy smoking cessation clinic -Congratulated on smoking cessation (last cigg Aug 2022) Assessment & Plan (01/14/2023 9:30 AM EDT): -Cont with [facility] Pharmacy smoking cessation clinic -Congratulated on smoking cessation (last cigg Aug 2022) Assessment & Plan (11/05/2022 6:54 PM EDT): -Cont with [facility] Pharmacy smoking cessation clinic -Congratulated on smoking cessation (last cigg Aug 2022) Type 2 diabetes mellitus without complication Overview (06/28/2024): Lab Results Component Value Date HGBA1C 7.3 (A) 06/24/2024 HGBA1C 7.9 (A) 09/18/2023 HGBA1C 7.5 (A) 05/22/2023 HGBA1C 7.4 (A) 02/11/2023 HGBA1C 6.7 (H) 08/09/2022 HGBA1C 7.1 (H) 12/11/2021 HGBA1C 6.9 (H) 04/24/2021 -A1c goal </= 7% -Previously followed through [facility], transitioned to PCP. Now to [facility] (as of November 2023) Current medication regimen: Lantus 20-24 units at bedtime Novolog SS AC (5-10 units) Jardiance 25mg daily Previous meds: -CGM in place Assessment & Plan (09/18/2023 8:11 PM EST): Increasing number of elevated BG events. Pt to record number of units of lantus administered nightly. Given instructions for self-titration lantus based off FBG values. May consider re-start of bolus insulin if needed. Assessment & Plan (07/07/2023 3:50 PM EST): Consider decreasing Lantus dosing with increase in Jardiance. Pt to follow up if BG readings below normal parameters for dose adjustment. Assessment & Plan (06/09/2023 8:53 PM EST): -CGM monitoring through [facility] pharmacy Assessment & Plan (02/11/2023 9:05 PM EDT): Lab Results Component Value Date HGBA1C 7.4 (A) 02/11/2023 Microalbumin: 10, WNL November 2021 Lipids: Lab Results Component Value Date CHOLESTEROL 101 12/11/2021 LDLCHOL 42 12/11/2021 HDLCHOL 45 (L) 12/11/2021 Eye exam: discuss at follow up Foot exam: discuss at follow up Dental: discuss at follow up ACEi/ARB: yes Statin: yes ASA: no Encouraged regular movement and aerobic exercise for improved glycemic control Encouraged daily foot checks Encouraged lean protein snacks and to avoid foods high in sugar and simple carbohydrates Treatment Goals: A1c goal: <7% FBG goal: <130 2 hour post prandial goal: <180 Assessment & Plan (01/14/2023 9:29 AM EDT): Lab Results Component Value Date HGBA1C 6.7 (H) 08/09/2022 Microalbumin: 10, WNL November 2021 Lipids: Lab Results Component Value Date CHOLESTEROL 101 12/11/2021 LDLCHOL 42 12/11/2021 HDLCHOL 45 (L) 12/11/2021 Eye exam: discuss at follow up Foot exam: discuss at follow up Dental: discuss at follow up ACEi/ARB: yes Statin: yes ASA: no Encouraged regular movement and aerobic exercise for improved glycemic control Encouraged daily foot checks Encouraged lean protein snacks and to avoid foods high in sugar and simple carbohydrates Treatment Goals: A1c goal: <7% FBG goal: <130 2 hour post prandial goal: <180 Assessment & Plan (09/18/2022 8:37 PM EST): Referred to [facility] per request Resolved Problems Problem Noted Date Diagnosed Date Resolved Date Multinodular thyroid 03/13/2023 023 Tinea manus 08/24/2022 05/22/2023 Arthralgia of both hands 08/23/2022 Assessment & Plan (09/18/2022 8:41 PM EST): -Updated referral to [facility] to include therapy for bilateral hands as well Shoulder pain 08/05/2022 03/25/2023 Assessment & Plan (08/14/2022 10:46 PM EST): -Referral to PT for further eval and treatment -Continue with symptomatic management including topical lidocaine and capsaicin PRN, med safety and SE reviewed -Follow up with any persistence of worsening of symptoms. Abnormal mammogram 03/24/2018 3 Decreased hearing 03/24/2018 03/25/2023 Hand joint pain 01/17/2018 03/25/2023 Lung mass 01/17/2018 03/25/2023 Encounters Date Type Department Care Team Description 08/26/2024 Outside Procedure [facility] [address] [place] [address] Billy, Ebony, OD Presbyopia (Primary Dx) 08/20/2024 1:15 PM EST Office Visit [facility] [address] [place] [address] Hesham Cervantesn, OD Hyperopia of left eye (Primary Dx) 08/12/2024 Refill [facility] [address] [place] [phone] Larissa Garrett MD 08/03/2024 Telephone [facility] [address] [place] [phone] Alanna Godinez FNP Medication Question 07/29/2024 Refill [facility] [address] [place] [address] Alanna Godinez, ANNA Healthcare maintenance 07/29/2024 Refill [facility] [address] [place] [phone] Diana Solitario FNP 07/10/2024 Refill [facility] [address] [place] [phone] Alanna Godinez FNP Primary hypertension 07/08/2024 2:30 PM EST Office Visit [facility] [address] [place] [address] Billy, Ebony, OD Diabetes type 2, no ocular involvement (CMS/HCC) (Primary Dx); Early cataracts, bilateral; Presbyopia 07/08/2024 Travel 07/02/2024 Refill [facility] [address] [place] [phone] Alanna Godinez, ANNA Vitamin D insufficiency 07/01/2024 Orders Only [facility] [address] [place] [address] Emily Ortiz MD 06/28/2024 Refill [facility] [address] [place] [phone] Alanna Godinez, ANNA Arthralgia of both hands; Neuropathic pain 06/24/2024 10:30 AM EST Office Visit [facility] [address] [place] [phone] Alanna Godinez, ANNA Vitiligo (Primary Dx); Healthcare maintenance; Type 2 diabetes mellitus without complication, with long-term current use of insulin (CMS/HCC); Acute bursitis of right shoulder; Tendinosis of right shoulder; Subdeltoid bursitis of right shoulder joint; Arthritis of right acromioclavicular joint 06/24/2024 Travel 06/24/2024 Telephone [facility] [address] [place] [phone] Hui Abernathy MA error 06/24/2024 Telephone [facility] [address] [place] [phone] Hui Abernathy MA Chart Prep 06/22/2024 Telephone [facility] [address] [place] [phone] Nidhi Garcia MD 06/19/2024 Telephone [facility] [address] [place] [phone] Mikayla Gerber RN Results from Last 3 Months Immunizations Name Administration Dates Next Due Hep B, adult 01/15/2019,11/19/2018,07/18/2018 Influenza injectable quadriv alent IIV4 with preservative 04/10/2019,05/23/2018 Influenza injectable quadriv alent preservative free 04/17/2023,05/16/2022,04/24/2021,05/05 Influenza, seasonal, injecta ble, preservative free 04/10/2024 Moderna Covid-19 Vaccine 12+ 01/08/2022,10/22/19 21,09/23/2020 Pfizer Covid-19 Vaccine 12+ 04/26/2023, Pfizer Covid-19 Vaccine 12+ Bivalent 05/16/2022 Pneumococcal Conjugate PCV 20 03/23/2022 Pneumococcal Polysaccharide PPSV23 07/14/2019 Tdap 07/18/2018 Zoster, Recombinant 02/11/2020,09/16/2019 Family History Medical History Relation Name Comments Diabetes Brother Lung cancer Brother Diabetes Father Blindness Mother Breast cancer Mother Coronary artery disease Mother Depression Mother Heart disease Mother Breast cancer Sister Relation Name Status Comments Brother Father Mother Sister Social History Tobacco Use Types Packs/Day Years Used Date Smoking Tobacco: Former Cigarettes Passive Smoke Exposure: Past Smokeless Tobacco: Never Tobacco Cessation:Counseling Given: Not Answered Comments:Currently quitting. Stop 09/16/2022 Alcohol Use Standard Drinks/Week Comments Never 0 (1 standard drink = 0.6 oz pur e alcohol) Depression Answer Date Recorded Patient Health Questionnaire-9 Score 0 06/24/2024 Patient Health Questionnaire-9 Score 0 06/24/2024 Last PHQ-9: Questionnaire Data Not on file 1 08/24/2023 Housing Stability Answer Date Recorded What is [...] Date Recorded Patient Health Questionnaire-2 Score 0 06/24/2024 Comments Unknown Sex and Gender Information Value Date Recorded Sex Assigned at Female 05/28/2022 10:33 AM EDT Legal Sex Female 10:33 AM EDT Gender Identity Female 05/28/2022 10:33 AM EDT Sexual Orientation Straight 05/28/2022 10 :33 AM EDT Last Filed Vital Signs Vital Sign Reading Time Taken Comments Blood Pressure 126/70 06/24/2024 11:36 AM EST Pulse 83 06/24/2024 11:36 AM EST Temperature 36.1 ??C (97 ??F) 06/24/2024 11:36 AM EST Respiratory Rate 18 06/24/2024 11:36 AM EST Oxygen Saturation 99% 06/24/2024 11:36 AM EST Inhaled Oxygen Concentration - - Weight 70 kg (154 lb 4 oz) 06/24/2024 11:[address] Height 156.5 cm (5' 1.63 ) 06/24/2024 11:[address] Body Mass Index 28.55 06/24/2024 11:36 AM EST Plan of Treatment Upcoming Encounters Date Type Department Care Team (Late st Contact Info) Description 09/23/2024 9:45 AM EST Office Visit [facility] [address] [facility] [place] [address] Alanna Godinez, PORT SURVEYOR [address] [place] [address] Health Maintenance Due Date Last Done Comments CT Colonography 1961 FIT DNA/Cologuard 1961 FIT 1961 FOBT 1961 HIV Screening 1961 Sigmoidoscopy 1961 Alcohol/Substance Use Screening 1973 Hepatitis A Vaccines (1 of 2 - Risk 2-dose series) 1980 RSV Patients and Patients Aged 60 years or older (1 - Risk 60-74 years 1-dose series) 2021 Diabetes: Urine Protein Screening 12/11/2022 12/11/2021, 11/23/2021, 05/04/2020, Additional history exists COVID-19 Vaccine ( season) 2024 04/26/2023, 05/16/2022, 01/08/2022, Additional history exists Lipid Panel 07/09/2024 07/09/2023, 11/26, 04/24/2021, Additional history exists Diabetes: Foot Exam 08/06/2024 08/06/2023, 08/06/2023, 08/06/2023, Additional history exists Diabetes: Hemoglobin A1C 09/24/2024 024, 09/18/2023, 05/22/2023, Additional history exists SDOH Screening 10/14/2024 10/15/2023 Mammogram 03/31/2025 03/31/2024, 01/27, 02/22/2023, Additional history exists Depression Screening 06/24/2025 06/24/2024, 06/24/20 24 Tobacco Screening 07/10/2025 07/10/2024 Eye Exam 07/08/2026 07/08/2024, 06/28, 07/08/2024, Additional history exists Cervical Cancer Screening 05/13/2027 HPV/Cotest 05/13/2027 01/02/2022, 09/03/2018 Pap Smear 05/13/2027 05/13/2024, 02/26, 01/02/2022 DTaP/Tdap/Td Vaccines (2 - Td or Tdap) 07/18/2028 07/18/2018 Colonoscopy 10/30/2028 10/30/2018 Colorectal Cancer Screening 10/30/2028 Hepatitis B Vaccines Completed 01/15/2019, 11/19/2018, 07/18/2018 Zoster Vaccines Completed 02/11/2020, 09/16/2019 Pneumococcal Vaccine: 50+ Years Completed 03/23/2022, 07/14/2019 Influenza Vaccine Completed 04/10/2024, , 05/16/2022, Additional history exists HIB Vaccines Aged Out No longer eligi ble based on patient's age to complete this topic HPV Vaccines Aged Out No longer eligi ble based on patient's age to complete this topic IPV Vaccines Aged Out No longer eligi ble based on patient's age to complete this topic Meningococcal Vaccine Aged Out No karly michela eligible based on patient's age to complete this topic RSV under 20 months Aged Out No longe r eligible based on patient's age to complete this topic Rotavirus Vaccines Aged Out No longer eligible based on patient's age to complete this topic Goals Goal Patient Goal Type Associated Problems Recent Progress Patient-Stated? Author Short-term: Promote adherence to treatment regimen General No Juan Huang, PharmD Smoking cessation General Juan Garza, PharmD Note: Continue using nicotine lozenges as needed Hemoglobin A1c < 7 Result Component 7.3( 11:22 AM EST) No Melani Louis Procedures Procedure Name Priority Date/Time Associated Diagnosis Comments POCT GLYCATED HEMOGLOBIN, TOTAL Routine 06/24/2024 11:22 AM EST Type 2 diabetes mellitus without complication, with long-term current use of insulin ([facility]) POCT GLUCOSE Routine 06/24/2024 11:21 AM EST Type 2 diabetes mellitus without complication, with long-term current use of insulin ([facility]) HM PAP/HPV Routine 05/13/2024 3:49 PM EDT BI US BREAST COMPLETE BILATERAL Routine 03/31/2024 12:04 PM EDT LIPID PANEL, STANDARD Routine 07/09/2023 9:13 AM EST Type 2 diabetes mellitus without complication, with long-term current use of insulin ([facility]) THINPREP IMAGING PAP AND HPV MRNA E6/E7, WITH CT/NG, TRICHOMONAS Routine 01/02/2022 2:21 PM EDT ALBUMIN, RANDOM URINE W/CREATININE Routine 12/11/2021 9:33 AM EDT HM COLONOSCOPY Routine 10/30/2018 from Last 3 Months or Most Recently Relevant to Health Maintenance Results * (ABNORMAL) POCT HGB A1C (06/24/2024 11:22 AM EST) Hemoglobin A1C 7.3(A) 4.0 - 6.0 % QC Media Lot # [id number] Lot# Expiration Date [id number] Blood 06/24/2024 11:2 2 AM EST Alanna Godinez PORT SURVEYOR POINT OF CARE TEST ENTER/EDIT ORDERABLES Final Result * POCT Glucose (06/24/2024 11:21 AM EST) Glucose Blood, POC 144 60 - 200 mg/dL QC Media Lot # [id number] Lot# Expiration Date [id number] [id number], 000,000,00 0,000,000 Blood Capillary blood specimen / Unknown 06/24/2024 11:21 AM EST Alanna Phalen PORT SURVEYOR POINT OF CARE TEST ENTER/EDIT ORDERABLES Final Result * PAP/HPV (05/13/2024 3:49 PM EDT) us Historical Provider MD HEALTH MAINTENANCE Final Result * BI US Breast Complete Bilateral (03/31/2024 12:04 PM EDT) Anatomical Region Laterality Modality Breast Bilateral Ultrasound 03/31/2024 12:0 4 PM EDT Narrative 04/01/2024 12:54 PM EDT ? [facility] ? [address] ?[place] [address] ? Ultrasound Report ? Signed ? Patient: Renetta Ramirez ?MR# ?? : [id number] ? : 1960 ?Acct:[id number] ? Age/Sex: 63 / F ?ADM Date: 03/31/24 ? Loc: HO.MAMMO ? Attending Dr: Alanna CASTILLO ? Ordering Physician: Alanna Godinez ?? Date of Service: 03/31/24 ?? Procedure(s): US breast BI complete ?? Accession Number(s): [id number] ? cc: Alanna Godinez ? EXAMINATION: ?? US SCREENING ULTRASOUND BREAST, BILATERAL ? CLINICAL INFORMATION: ? Dense breasts on mammography. Screening ultrasound. Patient refuses ?? mammography. ? COMPARISON: ? 02/14/2023 screening breast ultrasound. ? TECHNIQUE: ?? Ultrasound is performed using grayscale imaging and color Doppler. ?? Imaging is performed to include the four quadrants and retroareolar ?? region, as well as the axilla. ??Both breasts are imaged. ? FINDINGS: ?? Right breast: ?? There is no suspicious finding by ultrasound. ??There is no solid mass ?? or focal architectural abnormality. There are a few scattered benign ?? small subcentimeter cysts. ? Left breast: ?? There is no suspicious finding by ultrasound. ??There is no solid mass ?? or focal architectural abnormality. There are a few scattered benign ?? small subcentimeter cysts. ? US/US breast BI complete ?? IMPRESSION: ?? No suspicious findings on screening breast ultrasound. Benign findings. ? ASSESSMENT: ? BI-RADS 2 - Benign Findings ? RECOMMENDATION: ?? 1 year F/U ? This patient's information was entered into a reminder system with a ?? target due date for their next mammogram. ? Electronically signed by: ??Henry Miles MD ??04/01/2024 12:51 PM EDT RP ? Dictated By: ?Henry Miles MD ? Signed By: ?<Electronically signed by Henry Miles MD in OV> ?04/01/24 1251 ? DD/ 1204 ? TD/TT: 03/31/24 1242 ? Carcass Washer: ? Procedure Note Donmikaelinterpreter, Image - 04/01/2024 Dionte [facility] [address] [place] [address] Ultrasound Report Signed Patient: Renetta Ramirez HMR# : [id number] : 1960cct:[id number] Age/Sex: 63 / FADM Date: 03/31/24 Loc: HO.MAMMO Attending Dr: Alanna Godinez PORT SURVEYOR Ordering Physician: Alanna Godinez Date of Service: 03/31/24 Procedure(s): US breast BI complete Accession Number(s): [id number] cc: Alanna Godinez EXAMINATION: US SCREENING ULTRASOUND BREAST, BILATERAL CLINICAL INFORMATION: Dense breasts on mammography. Screening ultrasound. Patient refuses mammography. COMPARISON: 02/14/2023 screening breast ultrasound. TECHNIQUE: Ultrasound is performed using grayscale imaging and color Doppler. Imaging is performed to include the four quadrants and retroareolar region, as well as the axilla. Both breasts are imaged. FINDINGS: Right breast: There is no suspicious finding by ultrasound. There is no solid mass or focal architectural abnormality. There are a few scattered benign small subcentimeter cysts. Left breast: There is no suspicious finding by ultrasound. There is no solid mass or focal architectural abnormality. There are a few scattered benign small subcentimeter cysts. US/US breast BI complete IMPRESSION: No suspicious findings on screening breast ultrasound. Benign findings. ASSESSMENT: BI-RADS 2 - Benign Findings RECOMMENDATION: 1 year F/U This patient's information was entered into a reminder system with a target due date for their next mammogram. Electronically signed by: Henry Miles MD 04/01/2024 12:51 PM EDT Dictated By: Henry Miles MD Signed By: <Electronically signed by Henry Miles MD in OV> 04/01/24 1251 DD/ 1204 TD/TT: 03/31/24 1242 Carcass Washer: Alanna KIMP IMG US PROCEDURES Final Result * Lipid Panel, Standard (07/09/2023 9:13 AM EST) Triglycerides 57 <150 mg/dL [facility] Comment:Desirable Triglyceri de: less than 150 mg/dLBorderline High Triglyceride 150-199 mg/dLHigh Triglyceride: 200-499 mg/dLVery High Triglyceride: greater than or equal to 5OO mg/dL Cholesterol 108 <200 mg/dL [facility] Comment:Desirable Cholestero l: less than 200 mg/dLBorderline High Cholesterol: 200-239 mg/dLHigh Cholesterol: greater than 239 mg/dL LDL Cholesterol Calculated 55 <100 mg/dL [facility] Comment:Desirable LDL: less than 100 mg/dLNear Optimal/Above Optimal LDL: 110- 129 mg/dLBorderline High LDL: 130-159 mg/dLHigh LDL: 160-189 mg/dLVery High LDL: greater than or equal to 190 mg/dL HDL Cholesterol 42 >40 mg/dL [facility] Comment:Desirable HDL: great er than 40 mg/dL Note: This HDL assay may give artificially low results in patients with liver disease. Blood Venous blood specimen / Unknown 07/09/2023 9:13 AM EST 07/09/2023 11:19 AM EST Alanna CASTILLO LAB BLOOD ORDERABLES Final Res ult [facility] [address] [place] [phone] * (ABNORMAL) THINPREP TIS PAP AND HPV mRNA E6/E7, CT/NG, TRICH (01/02/2022 2:21 PM EDT) Chlamydia trachomatis RNA, TMA, Urogenital NOT DETECTED NOT DETECTED [facility] Clinical Information: None given [facility] COMMENT SEE COMMENT [facility] Comment: The analytical performance characteristics of this assay, when used to test SurePath(TM) specimens have been determined by [employer]. The modifications have not been cleared or approved by the FDA. This assay has been validated pursuant to the CLIA regulations and is used for clinical purposes. ?? For additional information, please refer to https://[employer].Culture Kitchen/faq/LKC074 (This link is being provided for information/ educational purposes only.) ?? COMMENT SEE COMMENT [facility] Comment: EXPLANATORY NOTE: ? The Pap is a screening test for cervical cancer. It is ?? not a diagnostic test and is subject to false negative ?? and false positive results. It is most reliable when a ?? satisfactory sample, regularly obtained, is submitted ?? with relevant clinical findings and history, and when ?? the Pap result is evaluated along with historic and ?? current clinical information. ?? COMMENT: This Pap test has been evaluated with computer assisted technology. [employer] Budget Specialist: SEE COMMENT [facility] Comment: ALS, CT(ASCP) CT screening location: [address] ??[address] HPV nRNA E6/E7 Detected(A) Not Detected [facility] Comment: Methodology: Publication Distributor-Mediated Amplification This assay detects E6/E7 viral messenger RNA (mRNA) from 14 high-risk HPV types (16,18,31,33,35,39,45,51,52,56,58,59,66,68). ? Cervical sources are required for HPV testing. If a vaginal source from a patient who has had a total hysterectomy with removal of cervix was ?? submitted, please contact the testing laboratory for alternative testing options. ?? For additional information, please refer to http://[employer].Culture Kitchen/faq/UDZ757j4 (This link if provided for information/ educational purposes only.) Interpretation/Re sult: Negative for intraepithelial lesion or malignancy. [facility] LMP: NONE [facility]IV[facility] Neisseria gonorrhoeae RNA, TMA, Urogenital NOT DETECTED NOT DETECTED [facility] Prev. BX: NONE GIVEN [facility] Prev. PAP: NONE GIVEN [facility] Review Budget Specialist: SEE COMMENT [facility] Comment: MPG, CT(ASCP) CT screening location: [address] ??[address] SOURCE: None given [facility] Statement Of Adequacy: SEE COMMENT [facility] Comment: Satisfactory for evaluation. Endocervical/transformation zone component present. Trichomonas vaginalis, QL, TMA, PAP Vial NOT DETECTED NOT DETECTED [facility] Comment: The analytical performance characteristics of this assay have been determined by [employer]. The modifications have not been cleared or approved by the FDA. This assay has been validated pursuant to the CLIA regulations and is used for clinical purposes. ?? For additional information, please refer to http://education.Culture Kitchen/ faq/Trichomonastma (This link is being provided for information/ educational purposes only.) ?? 01/02/2022 2:21 PM EDT Linda Brenner MD LAB PATHOLOGY ORDERAB LES Final Result [facility] [address] * ALBUMIN, RANDOM URINE W/CREATININE (12/11/2021 9:33 AM EDT) Microalbumin Urine 1.2 See Note: mg/dL [facility] Comment: Reference Range: ?? Reference Range Not established Microalb/Creat Ratio 10 <30 mcg/mg creat [facility] Comment: ?? The ADA defines abnormalities in albumin excretion as follows: ?? Albuminuria Category ?Result (mcg/mg creatinine) ?? Normal to Mildly increased ?? <30 Moderately increased ? 30-299 ?? Severely increased ? > OR = 300 ?? The ADA recommends that at least two of three specimens collected within a 3-6 month period be abnormal before considering a patient to be within a diagnostic category. Creatinine, Urine 118 20 - 275 mg/dL [facility] 12/11/2021 9:33 AM EDT us Linda Brenner MD LAB URINE ORDERABLES Final Result [facility] [address] * Hm Colonoscopy (10/30/2018) us Historical Provider HEALTH MAINTENANCE Final Result from Last 3 Months or Most Recently Relevant to Health Maintenance Insurance [facility] C3 Care Teams Technical Cable Jointer Relationship Specialty Start Date End Date Alanna Godinez FNP [address] [place] [address] PCP - General Family Medicine 11/29/22 Christen Landis RN [address] [place] [address] Workforce Planner 12/30/23
--- OUTSIDE RECORDS SUMMARY | 2024-09-16 12:34 | XMS_ITS | Encounter Summary ---
Author Organization [facility] Address [address] [place] [address] Care Team Providers Care Forensic Sergeant Name Role Phone Alanna Godinez Primary Care Provider [phone] Christen Landis RN Unavailable [phone] Reason for Visit * Reason Onset Date Comments Medication Question 08/03/2024 Encounter Details Date Type Department Care Team ([facility] st Contact Info) Description 08/03/2024 Telephone [facility] [address] [place] [address] Alanna Godinez FNP [address] [place] [address] Medication Question Social History Tobacco Use Types Packs/Day Years [...] encounter Miscellaneous Notes * Telephone Encounter - Hilary Markham RN - 08/04/2024 2:34 PM EST TC placed to pt with S buffing wheel raker Say #[phone] to inquire about pt concerns with Gabapentin medication and Jardiance for blood sugar control. The pt feels that the current dose of Gabapentin 300 MG is not effective in providing any relief for arthralgia of both hands. The pt confirms she does take this three times daily as prescribed but feels little relief. Pt finds ADL very difficult with current pain. Pt wants to make PCP aware but is willing to wait until OV on 08/31/2024 to discuss further in more detail. Pt is also concerned with consistent elevated blood glucose numbers she has had in the past week or so. Three numbers were given including 231, 234 and 365. Pt is asymptomatic but feels that since starting on Jardiance the blood glucose has been poorly controlled. Pt wants to makePCP aware before leaving for [place] and returning on 08/17. Pt will still be attending appt on 08/31/2024. * Telephone Encounter - Sheree Ambrocio - 08/03/2024 4:37 PM EST Tc from pt requesting a call back to further discuss medication. Pt is requesting dosage increase for gabapentin. Pt would also like to discuss medication regarding blood sugar. Denied triage or symptoms. Contact pt at [phone] (yi) documented in this encounter Plan of Treatment Upcoming Encounters Date Type Department Care Team (Late st Contact Info) Description 09/23/2024 9:45 AM EST Office Visit [facility] MEDICINE [address] [place] [address] Alanna Godinez FNP [address] [place] [address] documented as of this encounter Goals Goal Patient Goal Type Associated Problems Recent Progress Patient-Stated? Author Short-term: Promote adherence to treatment regimen General No Juan Huang, PharmD Smoking cessation General Juan Garza PharmD Note: Continue using nicotine lozenges as needed Hemoglobin A1c < 7 Result Component 7.3( 4 11:22 AM EST) No Melani Louis documented as of this encounter Visit Diagnoses Not on filedocumented in this encounter Additional Health Concerns Assessment Noted Time PHQ-9 Depression Total Score: 0 06/24/20 24 11:46 AM EST documented as of this encounter Care Teams Forensic Sergeant Relationship Specialty Start Date End Date Alanna Godinez FNP [address] [place] [address] PCP - General Family Medicine 11/29/22 Christen Landis RN [address] [place] [address] Conversion Man 12/30/23 documented as of this encounter
--- OUTSIDE RECORDS SUMMARY | 2024-09-16 12:34 | XMS_ITS | Encounter Summary ---
Author Organization [facility] Address [address] [place] [address] Care Team Providers Care Scientist Propagator Name Role Phone Alanna Godinez ANNA Primary Care Provider [phone] Wendy Hill Unavailable Unavailable Christen Landis RN Unavailable [phone] Reason for Visit * Reason Comments Med Refill Encounter Details Date Type Department Care Team (Late Contact Info) Description 01/07/2023 Refill [facility] [address] [place] [address] Linda Kaplan MD [address] [place] [address] Arthralgia of both hands; Neuropathic pain Social History Tobacco Use Types Packs/Day Years Used Date Smoking Tobacco: Former Cigarettes Smokeless Tobacco: Never Comments:Currently quitting Alcohol Use Standard Drinks/Week Comments Never 0 (1 standard drink = 0.6 oz pur e alcohol) Depression Answer Date Recorded Patient Health Questionnaire-9 Score 0 01/10/2023 Depression Answer Date Recorded Patient Health Questionnaire-2 Score 0 01/10/2023 Comments Unknown Sex and Gender Information Value Date Recorded Sex Assigned at Female 05/28/2022 10:33 AM EDT Legal Sex Female 10:33 AM EDT Gender Identity Female 05/28/2022 10:33 AM EDT Sexual Orientation Straight 05/28/2022 10 :33 AM EDT COVID-19 Exposure Response Date Recorded In the last 10 days, have yo u been in contact with someone who was confirmed or suspected to have Coronavirus/COVID-19? No / Unsure 01/10/2023 4:20 AM EDT documented as of this encounter Plan of Treatment Upcoming Encounters Date Type Department Care Team (Late st Contact Info) Description 09/23/2024 9:45 AM EST Office Visit [facility] MEDICINE [address] [place] [address] Alanna Godinez FNP [address] [place] [address] documented as of this encounter Goals Goal Patient Goal Type Associated Problems Recent Progress Patient-Stated? Author Short-term: Promote adherence to treatment regimen General Juan Garza, Dionisio Smoking cessation General Juan Garza PharmD Note: Continue using nicotine lozenges as needed documented as of this encounter Visit Diagnoses Diagnosis Arthralgia of both hands Neuropathic pain documented in this encounter Care Teams Scientist Propagator Relationship Specialty Start Date End Date Alanna Godinez FNP [address] [place] [address] PCP - General Family Medicine 11/29/22 Wendy Hill Community Health Worker 12/30/23 01/12/24 Christen Landis RN [address] [place] [address] Test Pilot 12/30/23 documented as of this encounter
--- OUTSIDE RECORDS SUMMARY | 2024-09-16 12:34 | XMS_ITS | Encounter Summary ---
Author Organization [employer] Address [address] [place] [address] Care Team Providers Care Sheetrock Applicator Name Role Phone Alanna Godinez Primary Care Provider [phone] Wendy Hill Unavailable Unavailable Christen Landis RN Unavailable [phone] Reason for Visit * Reason Onset Date Comments Medication Question 10/14/2023 Care Coordination 10/14/2023 C3 Initial a ssessment Encounter Details Date Type Department Care Team ([facility] st Contact Info) Description 10/14/2023 Telephone [facility] MED & PEDS [address] [place], [place] [phone] Alanna Godinez FNP [address] [place] [address] Medication Question; Care Coordination (C3CM Initial assessment) Social History Tobacco Use Types Packs/Day Years [...] Miscellaneous Notes * Telephone Encounter - Christen Landis RN - 10/22/2023 3:10 PM EDT JAGDEEP Landis RN and JUAN C Hill placed outbound call to patient for agreed upon time for initial assessment for enrollment into Adult Care Management Program. Patient's name, , and address were verified. Pt is a 63 year old female Divehi speaking female with medical history significant for hypertension, type 2 diabetes chronic left shoulder pain. Pt reports she sees chiropractor once a week and has an upcoming appointment with endocrinology for a biopsy on 10/28/2023. Pt states she saw the photo manager about a year ago and was told the size of the thyroid nodule remains the same and that she didn't need f/u appointment. Pt states she was told she has partial hearing loss during an ear examination that was done about a year ago but she doesn't wear hearing aide at this time. According to pt she wears eye glasses and last saw the eyewear consultant about 4-5 months ago. Pt states she takes Vitamins. Also she is concern about her weight as she has gain so much weight. Pt states she is non compliant with her diabetic diet and eats everything. Pt states she has the sensor and checks her BG more often. Also she occasionally checks her BP. Pt c/o chronic arm and shoulder pain and states she takes Gabapentin for the pain with good effects. Pt states she feels safe in her home. Denies drinking/ smoking or taking any illegal drugs. Pt denies being in a detox/ rehab program in the past. Pt states she is compliant with all her medications and denies any concern or side effect of any of them. Care management program explained and contact information given. Patient verbalizes understanding, and able to repeat back to adjusto writer operator. A follow up call will be placed within 10 days, patient agrees with plan. JAGDEEP Landis RN, provided notification to PCP Dr. Alanna CASTILLO of patient's enrollment into C3 Complex Care Program. JAGDEEP Landis RN, completed care plan and sent to HIM to be scanned into the medical record. PCP notified and awaiting review from provider. * Telephone Encounter - ANNA Velasco - 10/15/2023 6:54 PM EDT Thank you Cynthia! Previous rx for Novolog re-sent to the pharmacy. * Telephone Encounter - Cynthia Zheng RN - 10/15/2023 3:21 PM EDT TC placed to Evita at [facility]. Evita states that the patient has not had novolog refilled since April, and that the last script was written in January,. If patient is currently supposedto be taking novolog in addition to lantus, patient will need a new script from PCP. Evita also states that med boxes are due to be filled this week and she can discontinue Jardiance so it will not be included in patient's next med box. This has been done. Routing note to PCP for review. * Telephone Encounter - ANNA Velasco - 10/15/2023 10:43 AM EDT Communication reviewed CHC team nurses - please let me know if anything further needed on provider end after speaking withpharmacy. Thank you! * Telephone Encounter - Cynthia Zheng RN - 10/14/2023 5:20 PM EDT TC returned to patient via [employer] Chief Lending Officer. No answer. TC placed to patient without interpreterline. Reached patient. She states that she was prescribed Lantus by Juan Godinez on 10/02/23. However, when her medications were due to be delivered this week with an insulin refill, the lantus had been substituted with another brand. She does not want to use this new brand of insulin because she has had bad experiences in the past with changing types of insulin. Patient had many other concerns. Askedpatient for permission to call back with director of therapy services line. Patient agreed. TC placed again to patient via [employer] Chief Lending Officer and checked understanding of above and patient confirmed that she only wants Lantus and Novalog. Patient then began speaking at length recounting a conversation. When the patient stopped speaking, it seemed that the director of therapy services had dropped the line. TC placed again to patient via [employer] Chief Lending Officer. Confirmed that patient had a long conversation with the pharmacist about meds that are supposed to be refilled this week and patient did not want to substitute another brand of insulin for novolog. Patient states she has quite a bit of Lantus left, which she takes at night. The problem is that they want to bring her a different kind of insulin instead of novolog. She also states that she does not want to take Jardiance, so they don't need to refill it. Jardiance discontinued, per office note 10/02/23. Patient states the her current fasting BG is between 90 and 110 and the highest during the day is around 140. Patient states she does a sliding scale of novolog during the day. Patient states she injects herself 5 times a day. She also varies the amount of lantus she injects at night (between 20 and 24). She is taking metformin as prescribed. Patient repeats that she needs Novolog and nothing else and she is managing her DM well, and her goal is to get her A1C down to <7 at her next visit and she needs to protect her kidneys. She repeats again a story of having had a bad reaction to a previous kind of insulin with diarrhea and local reactions at injection sites. She describes family history of DM. Patient states again that she cannot have Jardiance included in her delivered prescriptions because then she may take it by mistake. Clarified that patient's main goals are to have Novolog refilled this in delivered meds (no substitutes) and to make sure Jardiance is not included with refills. She confirmed. Advised that we will be in touch with [facility] pharmacy to clarify what is going to be delivered to her this ,10/17/23. Complimented patient on DM self-management. Routing message back to [facility] nurses to follow up with [facility] pharmacy when they are open (currently closed) and to PCP for review. Tc from pt requesting a call back to discuss her medication . * Telephone Encounter - Dinorah Gracia - 10/14/2023 10:05 AM EDT Tc from pt requesting a call back to discuss her medication . documented in this encounter Plan of Treatment Upcoming Encounters Date Type Department Care Team (Late st Contact Info) Description 09/23/2024 9:45 AM EST Office Visit [facility] MEDICINE [address] [place] [address] Alanna Godinez FNP [address] [place] [address] documented as of this encounter Goals Goal Patient Goal Type Associated Problems Recent Progress Patient-Stated? Author Short-term: Promote adherence to treatment regimen General No Juan Huang PharmD Smoking cessation General Juan Garza PharmD Note: Continue using nicotine lozenges as needed Hemoglobin A1c < 7 Result Component 7.3( 11:22 AM EST) Melani Blount documented as of this encounter Visit Diagnoses Not on filedocumented in this encounter Additional Health Concerns Assessment Noted Time PHQ-9 Depression Total Score: 0 01/11/20 23 1:31 PM EDT documented as of this encounter Care Teams Sheetrock Applicator Relationship Specialty Start Date End Date Alanna Godinez FNP [address] [place] [address] PCP - General Family Medicine 11/29/22 Wendy Hill Community Health Worker 12/30/23 01/12/24 Christen Landis, AJ [address] [place] [address] Wall Taper 12/30/23 documented as of this encounter
--- OUTSIDE RECORDS SUMMARY | 2024-09-16 12:34 | XMS_ITS | Encounter Summary ---
Author Organization [employer] Address [address] [place] [address] Care Team Providers Care Sales Project Manager Name Role Phone Alanna Godinez Primary Care Provider [phone] Wendy Hill Unavailable Unavailable Christen Landis RN Unavailable [phone] Encounter Details Date Type Department Care Team ([facility] st Contact Info) Description 06/07/2023 Orders Only [facility] CHC MED & PEDS [address] [place], [place] [phone] Alanna Godinez FNP [address] [place] [address] Social History Tobacco Use Types Packs/Day Years Used Date Smoking Tobacco: Former Cigarettes Smokeless Tobacco: Never Comments:Currently quitting. Stop 09/16/2022 [...] before you got money to buy more: Never True 05/13/2023 Within the past 12 months,th e food you bought just didn't last and you didn't have enough money to get more: Never True Transportation Answer Date Recorded In the past 12 months, has l ack of transportation kept you from medical appts, meetings, work or from getting things needed for daily living? No 05/13/2023 Utilities Answer Date Recorded In the past 12 months, has t he electric, gas, oil or water Pops threatened to shut off services in your [...] Description 09/23/2024 9:45 AM EST Office Visit [facility] MEDICINE [address] [place] [address] Alanna Godinez FNP [address] [place] [address] documented as of this encounter Goals Goal Patient Goal Type Associated Problems Recent Progress Patient-Stated? Author Short-term: Promote adherence to treatment regimen General Juan Garza, PharmD Smoking cessation General Juan Garza, PharmD Note: Continue using nicotine lozenges as needed Hemoglobin A1c < 7 Result Component 7.3( 4 11:22 AM EST) Melani Blount documented as of this encounter Visit Diagnoses Not on filedocumented in this encounter Additional Health Concerns Assessment Noted Time PHQ-9 Depression Total Score: 0 01/11/20 23 1:31 PM EDT documented as of this encounter Care Teams Sales Project Manager Relationship Specialty Start Date End Date Alanna Godinez FNP [address] [place] [address] PCP - General Family Medicine 11/29/22 Wendy Hill Community Health Worker 12/30/23 01/12/24 Christen Landis, AJ [address] [place] [address] Benefits Representative 12/30/23 documented as of this encounter
--- OUTSIDE RECORDS SUMMARY | 2024-09-16 12:34 | XMS_ITS | Encounter Summary ---
Author Organization [employer] Address [address] [facility] 7t h Floor [place] [id number] Care Team Providers Care Manifold Builder Name Role Phone Alanna Godinez Primary Care Provider [phone] Wendy Hill Unavailable Unavailable Christen Landis RN Unavailable [phone] Reason for Visit * Reason Comments Med Refill Encounter Details Date Type Department Care Team (Late Contact Info) Description 12/28/2022 Refill [facility] MEDICINE [address] [place], [place] [phone] Magui Bills MD [address] [place], [place] [phone] Tobacco dependence syndrome Social History Tobacco Use Types Packs/Day Years Used Date Smoking Tobacco: Former Cigarettes Smokeless Tobacco: Never Comments:Currently quitting Alcohol Use Standard Drinks/Week Comments Never 0 (1 standard drink = 0.6 oz pur e alcohol) Comments Unknown Sex and Gender Information Value [...] suspected to have Coronavirus/COVID-19? No / Unsure 12/07/2022 2:15 PM EDT documented as of this encounter Plan of Treatment Upcoming Encounters Date Type Department Care Team ([facility] Contact Info) Description 09/23/2024 9:45 AM EST Office Visit [facility] MEDICINE [address] [place], [place] [phone] Alanna Godinez FNP [address] [place] [address] documented as of this encounter Goals Goal Patient Goal Type Associated Problems Recent Progress Patient-Stated? Author Short-term: Promote adherence to treatment regimen General Juan Garza, Dionisio Smoking cessation General Juan Garza PharmD Note: Continue using nicotine lozenges as needed documented as of this encounter Visit Diagnoses Diagnosis Tobacco dependence syndrome Tobacco use disorder documented in this encounter Care Teams Manifold Builder Relationship Specialty Start Date End Date Alanna Godinez FNP [address] [place] [address] PCP - General Family Medicine 11/29/22 Wendy Hill Community Health Worker 12/30/23 01/12/24 Christen Landis, AJ [address] [place] [address] Support Manager 12/30/23 documented as of this encounter
--- OUTSIDE RECORDS SUMMARY | 2024-09-16 12:34 | XMS_ITS | Encounter Summary ---
Author Organization [employer] Address [address] [place] [address] Care Team Providers Care Hotel Maintenance Worker Name Role Phone Alanna Godinez Primary Care Provider [phone] Christen Landis RN Unavailable [phone] Reason for Visit * Reason Onset Date Comments Prior Authorization 01/13/2024 Encounter Details Date Type Department Care Team (Late st Contact Info) Description 01/13/2024 Telephone [facility] MEDICINE [address] [place] [address] Alanna Godinez FNP [address] [place] [address] Prior Authorization Social History Tobacco Use Types Packs/Day Years [...] encounter Miscellaneous Notes * Telephone Encounter - Zamzam Hill - 01/13/2024 10:45 AM EDT Tc calvin Olson with [employer] drug utilization program states PA for Ruxolitinib Phosphate (Opzelura) 1.5 % cream was denied. In order for PA approval, prescriber for Opzelura needs to be a grocery sacker and consult notes by a grocery sacker needs to be submitted with PA. documented in this encounter Plan of Treatment Upcoming Encounters Date Type Department Care Team (Late st Contact Info) Description 09/23/2024 9:45 AM EST Office Visit [facility] MEDICINE [address] [place] [address] Alanna Godinez FNP [address] [place] [address] documented as of this encounter Goals Goal Patient Goal Type Associated Problems Recent Progress Patient-Stated? Author Short-term: Promote adherence to treatment regimen General No Juan Huang, PharmD Smoking cessation General No Juan Huang PharmD Note: Continue using nicotine lozenges as needed Hemoglobin A1c < 7 Result Component 7.3( 11:22 AM EST) No Melani Louis documented as of this encounter Visit Diagnoses Not on filedocumented in this encounter Additional Health Concerns Assessment Noted Time PHQ-9 Depression Total Score: 0 01/11/20 23 1:31 PM EDT documented as of this encounter Care Teams Hotel Maintenance Worker Relationship Specialty Start Date End Date Alanna Godinez FNP [address] [place] [address] PCP - General Family Medicine 11/29/22 Christen Landis RN [address] [place] [address] Documentation Manager 12/30/23 documented as of this encounter
--- OUTSIDE RECORDS SUMMARY | 2024-09-16 12:34 | XMS_ITS | Encounter Summary ---
Author Organization [employer] Address [address] 7[address] [place] [address] Care Team Providers Care Agricultural Production Engineer Name Role Phone Alanna Godinez ANNA Primary Care Provider [phone] Christen Landis RN Unavailable [phone] Encounter Details Date Type Department Care Team (Latest Contact Info) Description 08/26/2024 Outside Procedure [facility] OPTOMETRY [address] [place], [place] [phone] Billy, Ebony, OD [address] [place] [address] Presbyopia (Primary Dx) Social History Tobacco Use Types Packs/Day Years [...] AM EDT documented as of this encounter Progress Notes * Ebony Cervantes OD - 08/26/2024 9:18 AM EST MH glasses were dispensed, 2 of 2. documented in this encounter Plan of Treatment Upcoming Encounters Date Type Department Care Team (Late st Contact Info) Description 09/23/2024 9:45 AM EST Office Visit [facility] MEDICINE [address] [place] [address] Alanna Godinez FNP [address] [place] [address] documented as of this encounter Goals Goal Patient Goal Type Associated Problems Recent Progress Patient-Stated? Author Short-term: Promote adherence to treatment regimen General No Juan Huang, PharmD Smoking cessation General Juan Garza PharmD Note: Continue using nicotine lozenges as needed Hemoglobin A1c < 7 Result Component 7.3( 4 11:22 AM EST) No Melani Louis documented as of this encounter Visit Diagnoses Diagnosis Presbyopia- Primary documented in this encounter Additional Health Concerns Assessment Noted Time PHQ-9 Depression Total Score: 0 06/24/20 24 11:46 AM EST documented as of this encounter Care Teams Agricultural Production Engineer Relationship Specialty Start Date End Date Alanna Godinez FNP [address] [place] [address] PCP - General Family Medicine 11/29/22 Christen Landis RN [address] [place] [address] Retail Specialist 12/30/23 documented as of this encounter
--- OUTSIDE RECORDS SUMMARY | 2024-09-16 12:34 | XMS_ITS | Encounter Summary ---
Author Organization [employer] Address [address] 7[address] [place] [address] Care Team Providers Care Auto Collision Repair Instructor Name Role Phone Alanna Godinez Primary Care Provider [phone] Wendy Hill Unavailable Unavailable Christen Landis RN Unavailable [phone] Reason for Visit * Reason Onset Date Comments Referral 12/21/2022 Encounter Details Date Type Department Care Team (Late st Contact Info) Description 12/21/2022 Telephone [facility] MEDICINE [address] [place] [address] Alanna Godinez FNP [address] [place], [place] [phone] Referral Social History Tobacco Use Types Packs/Day Years [...] encounter Miscellaneous Notes * Telephone Encounter - Carol Martin - 01/01/2023 4:12 PM EDT Door Tender called and LVM for pt stating referral she called requesting status for was sent to [facility] Ortho on 12/28/2022. Office should be calling her to schedule. Gloria processed referral and is awaiting appt details to be faxed back to her. Pt was advised to give a call back if has further questions * Telephone Encounter - Jaimie Lock - 12/21/2022 11:59 AM EDT Tc from pt requesting status on referral for Orthopedics, Door Tender sees status is currently pending. Please contact at [phone] documented in this encounter Plan of Treatment Upcoming Encounters Date Type Department Care Team (Late st Contact Info) Description 09/23/2024 9:45 AM EST Office Visit [facility] MEDICINE [address] [place] [address] Alanna Godinez FNP [address] [place], [place] [phone] documented as of this encounter Goals Goal Patient Goal Type Associated Problems Recent Progress Patient-Stated? Author Short-term: Promote adherence to treatment regimen General Juan Garza PharmD Smoking cessation General Juan Garza PharmD Note: Continue using nicotine lozenges as needed Hemoglobin A1c < 7 Result Component 7.3( 4 11:22 AM EST) Melani Blount documented as of this encounter Visit Diagnoses Not on filedocumented in this encounter Care Teams Auto Collision Repair Instructor Relationship Specialty Start Date End Date Alanna Godinez FNP [address] [place] [address] PCP - General Family Medicine 11/29/22 Wendy Hill Community Health Worker 12/30/23 01/12/24 Christen Landis RN [address] [place] [address] Senior Officer 12/30/23 documented as of this encounter
--- OUTSIDE RECORDS SUMMARY | 2024-09-16 12:34 | XMS_ITS | Encounter Summary ---
Author Organization [employer] Address [address] [place] [address] Care Team Providers Care Primary Care Provider Name Role Phone Alanna Godinez Primary Care Provider [phone] Christen Landis RN Unavailable [phone] Reason for Visit * Reason Onset Date Comments Call Back Request 02/21/2024 Encounter Details Date Type Department Care Team ([facility] st Contact Info) Description 02/21/2024 Telephone [facility] MEDICINE [address] [place] [address] Alanna Godinez FNP [address] [place] [address] Call Back Request Social History Tobacco Use Types Packs/Day Years [...] encounter Miscellaneous Notes * Telephone Encounter - Ramos Mae - 02/21/2024 3:03 PM EDT Tc from patient calling to request for some assistance for Housing states has Section 8 but needs to find a new appt before 03/20 documented in this encounter Plan of Treatment Upcoming Encounters Date Type Department Care Team (Late st Contact Info) Description 09/23/2024 9:45 AM EST Office Visit [facility] MEDICINE [address] [place] [address] Alanna Godinez FNP [address] [place] [address] documented as of this encounter Goals Goal [...] documented as of this encounter Care Teams Primary Care Provider Relationship Specialty Start Date End Date Alanna Godinez FNP [address] [place] [address] PCP - General Family Medicine 11/29/22 Christen Landis RN [address] [place] [address] Surveillance Systems Analyst 12/30/23 documented as of this encounter
--- OUTSIDE RECORDS SUMMARY | 2024-09-16 12:34 | XMS_ITS | Encounter Summary ---
Author Organization [employer] Address [address] 7[address] [place] [address] Care Team Providers Care Marine Steamfitter Name Role Phone Alanna Godinez Primary Care Provider [phone] Wendy Hill Unavailable Unavailable Christen Landis RN Unavailable [phone] Encounter Details Date Type Department Care Team (Late Contact Info) Description 02/01/2023 Abstract [facility] MEDICINE [address] [place], [place] [phone] Alanna Godinez FNP [address] [place] [phone] Social History Tobacco Use Types Packs/Day Years [...] Encounters Date Type Department Care Team (Late Contact Info) Description 09/23/2024 9:45 AM EST Office Visit [facility] MEDICINE [address] [place], [place] [phone] Alanna Godinez FNP [address] [place] [address] documented as of this encounter Goals Goal Patient Goal Type Associated Problems Recent Progress Patient-Stated? Author Short-term: Promote adherence to treatment regimen General No Juan Huang PharmD Smoking cessation General No Juan Huang PharmD Note: Continue using nicotine lozenges as needed documented as of this encounter Visit Diagnoses Not on filedocumented in this encounter Additional Health Concerns Assessment Noted Time PHQ-9 Depression Total Score: 0 01/11/20 23 1:31 PM EDT documented as of this encounter Care Teams Marine Steamfitter Relationship Specialty Start Date End Date Alanna Godinez FNP [address] [place] [address] PCP - General Family Medicine 11/29/22 Wendy Hill Community Health Worker 12/30/23 01/12/24 Christen Landis, AJ [address] [place] [address] Fruit Or Nut Farmworker 12/30/23 documented as of this encounter
--- OUTSIDE RECORDS SUMMARY | 2024-09-16 12:34 | XMS_ITS | Encounter Summary ---
Author Organization [employer] Address [address] [place] [address] Care Team Providers Care Graduate Civil Engineer Name Role Phone Alanna Godinez Primary Care Provider [phone] Wendy Hill Unavailable Unavailable Christen Landis RN Unavailable [phone] Reason for Visit * Reason Onset Date Comments Prior Authorization 12/18/2023 Encounter Details Date Type Department Care Team ([facility] st Contact Info) Description 12/18/2023 Telephone [facility] [address] [place] [address] Alanna Godinez FNP [address] [place] [address] Prior Authorization Social History Tobacco Use Types [...] encounter Miscellaneous Notes * Telephone Encounter - Yunier Law - 12/19/2023 11:26 AM EDT Letter generated and awaiting signature from Derm provider. [place] will contact pt . * Telephone Encounter - Dotty Santana - 12/19/2023 11:09 AM EDT Nissecity * Telephone Encounter - Heladio Santana - 12/18/2023 4:42 PM EDT Tc from pt requesting status on PA for Ruxolitinib Phosphate (Opzelura) 1.5 % cream. Pt expressed frustration stating I don't know what It costs for them to sing a fucking paper and send it to [facility] pt also stated I'm going to have to go in tomorrow and speak to a higher up in order to actually get attended. Telecommunications Sales Representative advised pt on protocol and apologized for the inconvenience and let pt know will be forwarding message. If any questions please contact pt at [phone]. documented in this encounter Plan of Treatment Upcoming Encounters Date Type Department Care Team (Late st Contact Info) Description 09/23/2024 9:45 AM EST Office Visit [facility] [address] [place] [address] Alanna Godinez FNP [address] [place] [address] documented as of this encounter Goals Goal [...] documented as of this encounter Care Teams Graduate Civil Engineer Relationship Specialty Start Date End Date Alanna Godinez FNP [address] [place] [address] PCP - General Family Medicine 11/29/22 Wendy Hill Community Health Worker 12/30/23 01/12/24 Christen Landis RN [address] [place] [address] Layout Worker 12/30/23 documented as of this encounter
--- OUTSIDE RECORDS SUMMARY | 2024-09-16 12:34 | XMS_ITS | Encounter Summary ---
Author Organization [employer] Address [address] [place] [address] Care Team Providers Care Heel Stiffener Name Role Phone Alanna Godinez ANNA Primary Care Provider [phone] Christen Landis RN Unavailable [phone] Encounter Details Date Type Department Care Team (Late st Contact Info) Description 08/20/2024 1:15 PM EST Office Visit [facility] [address] [place], [place] [id number] Billy, Ebony, OD [address] [place] [address] Hyperopia of left eye (Primary Dx) Social History Tobacco Use Types [...] Progress Notes * Ebony Cervantes OD - 08/20/2024 1:15 PM EST MH glasses were dispensed, 1 of 2. documented in this encounter Plan of Treatment Upcoming Encounters Date Type Department Care Team (Late st Contact Info) Description 09/23/2024 9:45 AM EST Office Visit [facility] [address] [place] [address] Alanna Godinez FNP [address] [place] [address] documented as of this encounter Goals Goal Patient Goal Type Associated Problems Recent Progress Patient-Stated? Author Short-term: Promote adherence to treatment regimen General No Juan Huang, PharmD Smoking cessation General Juan Garza PharmD Note: Continue using nicotine lozenges as needed Hemoglobin A1c < 7 Result Component 7.3( 11:22 AM EST) No Melani Louis documented as of this encounter Visit Diagnoses Diagnosis Hyperopia of left eye- Primary documented in this encounter Additional Health Concerns Assessment Noted Time PHQ-9 Depression Total Score: 0 06/24/20 24 11:46 AM EST documented as of this encounter Care Teams Heel Stiffener Relationship Specialty Start Date End Date Alanna Godinez FNP [address] [place] [address] PCP - General Family Medicine 11/29/22 Christen Landis RN [address] [place] [address] [place] [address] Ophthalmic Asst 12/30/23 documented as of this encounter
--- OUTSIDE RECORDS SUMMARY | 2024-09-16 12:34 | XMS_ITS | Encounter Summary ---
Author Organization [employer] Address [address] [place] [address] Care Team Providers Care Robotics Mechanic Name Role Phone Alanna Godinez ANNA Primary Care Provider [phone] Christen Landis RN Unavailable [phone] Encounter Details Date Type Department Care Team (Late st Contact Info) Description 07/01/2024 Orders Only [facility] [address] [place] [address] ProviderEmily MD Social History Tobacco Use Types Packs/Day Years [...] t he electric, gas, oil or water [employer] threatened to shut off services in your [...] Description 09/23/2024 9:45 AM EST Office Visit [facility] [address] [place] [address] Alanna Godinez FNP [address] [place], [place] [phone] documented as of this encounter Goals Goal Patient Goal Type Associated Problems Recent Progress Patient-Stated? Author Short-term: Promote adherence to treatment regimen General No Juan Huang, PharmD Smoking cessation General No Juan Huang PharmD Note: Continue using nicotine lozenges as needed Hemoglobin A1c < 7 Result Component 7.3( 11:22 AM EST) No Melani Louis documented as of this encounter Procedures Procedure Name Priority Date/Time Associated Diagnosis Comments HM PAP/HPV Routine 05/13/2024 3:49 PM EDT documented in this encounter Results * HM PAP/HPV (05/13/2024 3:49 PM EDT) us Historical Provider HEALTH MAINTENANCE Final Result documented in this encounter Visit Diagnoses Not on filedocumented in this encounter Additional Health Concerns Assessment Noted Time PHQ-9 Depression Total Score: 0 06/24/20 24 11:46 AM EST documented as of this encounter Care Teams Robotics Mechanic Relationship Specialty Start Date End Date Alanna Godinez FNP [address] [place] [address] PCP - General Family Medicine 11/29/22 Christen Landis RN [address] [place] [address] Java Architect 12/30/23 documented as of this encounter
--- OUTSIDE RECORDS SUMMARY | 2024-09-16 12:34 | XMS_ITS | Encounter Summary ---
Author Organization [email or web address] Address [address] [place] [address] Care Team Providers Care Equipment Coordinator Name Role Phone Alanna Godinez Primary Care Provider [phone] Wendy Hill Unavailable Unavailable Christen Landis RN Unavailable [phone] Reason for Visit * Reason Onset Date Comments Medication Question 08/06/2023 Encounter Details Date Type Department Care Team ([facility] st Contact Info) Description 08/06/2023 Telephone [facility] [address] [place], [place] [phone] Alanna Godinez FNP [address] [place], [place] [phone] Medication Question Social History Tobacco Use Types [...] encounter Miscellaneous Notes * Telephone Encounter - Sierra Menjivar Kimball - 08/06/2023 1:38 PM EST Tc from pt requesting if provider could prescribe a medication for a sensitive stomach due to her Toes being Swollen, Infected, and causing pain. Pt explain that quality control chemist is going to prescribed medication that is Oral but it will be a Higher dose and pt states provider knows of her sensitive stomach. Please contact pt @ [phone] documented in this encounter Plan of Treatment Upcoming Encounters Date Type Department Care Team (Late st Contact Info) Description 09/23/2024 9:45 AM EST Office Visit [facility] [address] [place] [address] Alanna Godinez FNP [address] [place] [address] documented as of this encounter Goals Goal [...] documented as of this encounter Care Teams Equipment Coordinator Relationship Specialty Start Date End Date Alanna Godinez FNP [address] [place] [address] PCP - General Family Medicine 11/29/22 Wendy Hill Community Health Worker 12/30/23 01/12/24 Christen Landis RN [address] [place] [address] Brazer Assembler 12/30/23 documented as of this encounter
--- OUTSIDE RECORDS SUMMARY | 2024-09-16 12:34 | XMS_ITS | Encounter Summary ---
Author Organization [facility] Address [address] [facility] 7t [place] [address] Care Team Providers Care Production Aide Name Role Phone Alanna Godinez Primary Care Provider [phone] Wendy Hill Unavailable Unavailable Christen Landis RN Unavailable [phone] Encounter Details Date Type Department Care Team ([facility] Contact Info) Description 04/10/2023 Orders Only [facility] [address] [place] [address] Provider, MD Emily Social History Tobacco Use Types Packs/Day Years [...] Description 09/23/2024 9:45 AM EST Office Visit [facility] [address] [place] [address] Alanna Godinez FNP [address] [place], [place] [phone] documented as of this encounter Goals Goal Patient Goal Type Associated Problems Recent Progress Patient-Stated? Author Short-term: Promote adherence to treatment regimen General No Juan Huang, PharmD Smoking cessation General No Juan Huang, PharmD Note: Continue using nicotine lozenges as needed documented as of this encounter Procedures Procedure Name Priority Date/Time Associated Diagnosis Comments COLONOSCOPY Routine 10/30/2018 documented in this encounter Results * Colonoscopy (10/30/2018) us Historical Provider HEALTH MAINTENANCE Final Result documented in this encounter Visit Diagnoses Not on filedocumented in this encounter Additional Health Concerns Assessment Noted Time PHQ-9 Depression Total Score: 0 01/11/20 23 1:31 PM EDT documented as of this encounter Care Teams Production Aide Relationship Specialty Start Date End Date Alanna Godinez FNP [address] [place] [address] PCP - General Family Medicine 11/29/22 Wendy Hill Community Health Worker 12/30/23 01/12/24 Christen Landis RN [address] [place] [address] Scene And Lighting Design Lecturer 12/30/23 documented as of this encounter
--- OUTSIDE RECORDS SUMMARY | 2024-09-16 12:34 | XMS_ITS | Encounter Summary ---
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 Name Role Phone Alanna Godinez Primary Care Provider [phone] Christen Landis RN Unavailable [phone] Reason for Visit * Reason Onset Date Comments Call Back Request 03/17/2024 Encounter Details Date Type Department Care Team ([facility] st Contact Info) Description 03/17/2024 Telephone [facility] [address] [place] [address] Alanna Godinez FNP [address] [place] [address] Call Back Request Social History Tobacco Use [...] * Telephone Encounter - Ramos Mae - 03/17/2024 11:44 AM EDT Tc from patient calling to report will be moving before 03/19 and the food card will be sent to old location hand sign writer did update new address on demographics documented in this encounter Plan of Treatment Upcoming Encounters Date Type Department Care Team (Late st Contact Info) Description 09/23/2024 9:45 AM EST Office Visit [facility] [address] [place] [address] Alanna Godinez FNP [address] [place], [place] [phone] documented as of this encounter Goals Goal [...] documented as of this encounter Care Teams Malt House Operator Relationship Specialty Start Date End Date Alanna Godinez FNP [address] [place] [address] PCP - General Family Medicine 11/29/22 Christen Landis RN [address] [place] [address] [place] [address] Casework Supervisor 12/30/23 documented as of this encounter
== END 2024-09-16 12:19 | disposition home or self-care (01) ==
PROVIDERS: Emergency Provider Emergency Medicine; PCP Registered Nurse
DX: M25.511 Pain in right shoulder (principal); E11.9 Type 2 diabetes mellitus without complications; I10 Essential (primary) hypertension; E78.5 Hyperlipidemia, unspecified
CPT/HCPCS: 99282; 99283

== ENCOUNTER 2024-10-21 12:03 | Emergency (ER) | payer MEDICAID, SELFPAY ==
[2024-10-21 12:10] VITALS: BP 142/66; PULSE 87; RESP 18; TEMP 36.6; O2SAT 98; BMI 28.0
--- NOTE | 2024-10-21 12:19 | ED.EXTPRO ---
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 Patient reports that she has had pain for months. She had an MRI that was done here on May 27, 2024. She reports that this showed tendinitis, bursitis, and a pinched nerve. She is due to see Orthopedics on November 04, in 2 weeks she reports she was taking gabapentin 300 mg without any improvement in her symptoms she states she was unable to lay on her stomach or right side due to the pain and she could not sleep last night due to the pain she denies any recent injury her pain radiates down into her right wrist/hand Related Data Home Medications ?Medication ?Instructions ?Recorded ?Confirmed cholecalciferol (vitamin D3) 25 25 mcg PO DAILY 08/04/20 08/02/22 mcg (1,000 unit) capsule gabapentin 300 mg capsule 300 mg PO BEDTIME 08/04/20 08/02/22 lisinopril 10 mg tablet 10 mg PO DAILY 08/04/20 08/02/22 metformin 1,000 mg tablet 1,000 mg PO BID 08/04/20 08/02/22 ascorbic acid (vitamin C) 500 mg 500 mg PO QAM 03/11/23 tablet (Vitamin C) flash glucose sensor (FreeStyle #1 ea 03/11/23 Logan 2 Sensor kit) lidocaine 5 % topical patch 0 patch topical 03/11/23 nicotine (polacrilex) 2 mg buccal 2 mg PO 03/11/23 lozenge vitamin E (dl, acetate) 180 mg 180 mg PO QAM 03/11/23 (400 unit) capsule Previous Rx's ?Medication ?Instructions ?Recorded pen needle, diabetic 32 gauge x #100 ea 06/08/2008/01 (BD Ultra-Fine Micro Pen Needle) albuterol sulfate 90 mcg/actuation 2 puff PO Q2H PRN for wheezing 02/13/21 aerosol inhaler (ProAir HFA) #8.5 grams levothyroxine 50 mcg tablet 50 mcg PO DAILY 30 days #30 tabs 12/14/21 acetaminophen 500 mg tablet 1,000 mg (2 x 500 mg) PO QID PRN 01/28/22 pain #30 tabs cyclobenzaprine 5 mg tablet 5 mg PO TID PRN muscle spasm #10 01/28/22 tabs insulin degludec 100 unit/mL (3 14 unit (0.14 mL) subcut DAILY 30 06/28/22 mL) subcutaneous pen (Tresi days #4.2 mL FlexTouch U-100 insulin) insulin lispro 100 unit/mL 1 sliding scale dose subcut 08/29/22 subcutaneous pen USEASDIRECTD 30 days #30 mL lancets 33 gauge (TRUEplus Lancets) 1 gauge miscellaneous QID for 09/04/22 diabetes mellitus 30 days #100 ea blood sugar diagnostic (FreeStyle 1 strip miscellaneous QID for 10/29/22 Lite Strips) diabetes mellitus 30 days #150 strips atorvastatin 40 mg tablet 40 mg PO DAILY 30 days #30 tabs 11/08/22 acetaminophen 500 mg tablet 500 mg PO Q6H PRN pain #30 tabs 08/11/23 (Tylenol Extra Strength) lidocaine 5 % topical patch 1 patch topical DAILY #30 ea 08/11/23 (Lidoderm) cyclobenzaprine 5 mg tablet 5 mg PO TID PRN muscle spasm #20 02/21/24 tabs lidocaine 5 % topical patch 2 patch topical DAILY #30 ea 02/21/24 cyclobenzaprine 10 mg tablet 10 mg PO TID PRN muscle spasm 5 04/09/24 days #15 tabs oxycodone 5 mg capsule 5 mg PO Q8H PRN pain 3 days #9 caps 04/09/24 prednisone 20 mg tablet 40 mg (2 x 20 mg) PO DAILY 5 days 04/09/24 #10 tabs ibuprofen 600 mg tablet 600 mg PO Q6H PRN pain #20 tabs 09/16/24 oxycodone 5 mg tablet 5 mg PO Q6H PRN pain #16 tabs 09/16/24 cyclobenzaprine 10 mg tablet 10 mg PO TID PRN muscle spasm #20 10/21/24 tabs tramadol 50 mg tablet 50 mg PO Q6H PRN severe pain 10/21/24 (scale score 7-10) #16 tabs Allergies Allergy/AdvReac Type Severity Reaction Status Date / Time [facility] Allergy Intermediate HALLUCINATI Verified 10/21/24 12:12 ONS Review of Systems Constitutional: Constitutional: Denies chills and Denies fever(s) Musculoskeletal: Musculoskeletal: Reports arthralgias, Denies joint swelling and Reports limited range of motion PMFSH Past Medical History Medical History Cervical high risk HPV (human papillomavirus) test positive Vitamin D deficiency Hypothyroidism Multinodular thyroid HLD (hyperlipidemia) HTN (hypertension) T2DM (type 2 diabetes mellitus) Surgical History History of lipoma History of excision of mass (05/08/22) History of thyroid surgery Hx of colonoscopy Hx of hand surgery Hx of tubal ligation Hx of eye surgery Family History Family History Father Diabetes CVD (cardiovascular disease) Myocardial infarction Mother Diabetes CVD (cardiovascular disease) Breast cancer Sister Breast cancer Social History Social History Household Members Other:: son Housing: Apartment Alcohol intake: never Patient Tobacco Use Status: Former Tobacco user Tobacco use type: Cigarette Years Smoked: 40 Advance Directives: No Advance Directives Information Provided: No Do you have a plan to hurt others: No Plan Sexual orientation: Straight/Heterosexual Gender identity: Female Physical Exam Vital Signs: Vital Signs: Last Vital Signs Temp 98 F 10/21/24 12:26 Pulse 87 10/21/24 12:26 Resp 18 10/21/24 12:26 BP 142/66 H 10/21/24 12:26 Pulse Ox 98 10/21/24 12:26 O2 Del Method Room Air 10/21/24 12:26 BMI result Body Mass Index 28.0 Const: General: healthy appearing, comfortable, no acute distress, alert and awake Nutritional Appearance: well nourished Orientation/consciousness: patient oriented x3 HEENT: Head: Yes normocephalic and Yes atraumatic Eyes: Eyelids: Yes eyelids normal Conjunctivae: conjunctivae normal Sclerae: sclerae normal Corneas: corneas normal Pupils: Equal, round and reactive pupils present EOM: EOMs intact bilaterally Neck: Neck: Yes full ROM Resp: Effort & Inspection: normal respiratory effort, able to speak in complete sentences and not labored Cardio: Rate: regular rate Rhythm: regular rhythm Back/Spine/Pelvis: Cervical Spine: No Cervical spine tenderness Skin: General skin exam: elasticity normal Neuro: General: patient oriented x3 Cranial nerves: Yes Equal, round and reactive pupils present and Yes Bilaterally intact EOM present Cognition (Neuro): normal cognition Extrem: Other: there is no obvious deformity to the right upper extremity. The patient is tender over the right bicipital groove, acromioclavicular joint. No palpable deformity. The patient has full range of motion with flexion, extension, abduction and adduction of the right upper extremity. no right elbow edema, tenderness Medical Decision Making Medical Decision Making MDM Narrative: 64-year-old female presents for evaluation of right shoulder pain. She denies any recent injury. She has no fevers or chills to suggest infectious cause, no overlying skin changes. That was able to review her MRI from just a few months ago in April of 2024. This does show degenerative changes. I do not see any indication for further emergent imaging. The patient has not orthopedic follow up in about 2 weeks. We will discharge her with tramadol and cyclobenzaprine for pain control Differential Diagnosis Differential Diagnoses: The differential diagnosis associated with the presentation includes arthritis Tendonitis Arthralgia Joint effusion Discharge Plan Discharge Clinical Impression: Acute pain of right shoulder Patient Disposition: Home, Self-Care Instructions: Tendinitis (ED), Arthritis (ED) Additional Instructions: I reviewed your MRI from April that showed tendinosis, bursitis you may continue to use ibuprofen / Tylenol for pain you may use tramadol for severe breakthrough pain this may make you drowsy, do not drink alcohol or drive after taking it. You may also use cyclobenzaprine as needed for muscle spasms. This may make you drowsy, do not drink alcohol or drive after taking it Prescriptions: New cyclobenzaprine 10 mg tablet 10 mg PO TID PRN (Reason: muscle spasm) Qty: 20 0RF tramadol 50 mg tablet 50 mg PO Q6H PRN (Reason: severe pain (scale score 7-10)) Qty: 16 0RF No Action (DME) pen needle, diabetic [BD Ultra-Fine Micro Pen Needle] 32 gauge x 1/4 needle See Rx Instructions .ROUTE .MEDSUPPLY Qty: 100 11RF Rx Instructions: 4x daily albuterol sulfate [ProAir HFA] 90 mcg/actuation HFA aerosol inhaler 2 puff PO Q2H PRN (Reason: for wheezing) Qty: 8.5 6RF levothyroxine 50 mcg tablet 50 mcg PO DAILY 30 Days Qty: 30 11RF insulin degludec [Tresiba FlexTouch U-100] 100 unit/mL (3 mL) insulin pen 14 unit subcut DAILY 30 Days Qty: 4.2 3RF insulin lispro 100 unit/mL insulin pen 1 sliding scale dose subcut USEASDIRECTD 30 Days Qty: 30 11RF Rx Instructions: 7 units with meals, 2 units with snacks. lancets [TRUEplus Lancets] 33 gauge misc 1 gauge miscellaneous QID 30 Days Qty: 100 11RF FreeStyle Lite Strips Strip 1 strip miscellaneous QID 30 Days Qty: 150 11RF atorvastatin 40 mg tablet 40 mg PO DAILY 30 Days Qty: 30 2RF Rx Instructions: Complete labs for further refills. acetaminophen 500 mg tablet 1,000 mg PO QID PRN (Reason: pain) Qty: 30 0RF cyclobenzaprine 5 mg tablet 5 mg PO TID PRN (Reason: muscle spasm) Qty: 10 0RF oxycodone 5 mg tablet 5 mg PO Q6H PRN (Reason: pain) Qty: 16 0RF Rx Instructions: Partial Fill upon patient request. ibuprofen 600 mg tablet 600 mg PO Q6H PRN (Reason: pain) Qty: 20 0RF acetaminophen [Tylenol Extra Strength] 500 mg tablet 500 mg PO Q6H PRN (Reason: pain) Qty: 30 0RF lidocaine [Lidoderm] 5 % adhesive patch,medicated 1 patch topical DAILY Qty: 30 0RF Rx Instructions: leave on most painful area for up to 12 hrs cyclobenzaprine 5 mg tablet 5 mg PO TID PRN (Reason: muscle spasm) Qty: 20 0RF lidocaine 5 % adhesive patch,medicated 2 patch topical DAILY Qty: 30 0RF Rx Instructions: leave on most painful area for up to 12 hrs prednisone 20 mg tablet 40 mg PO DAILY 5 Days Qty: 10 0RF cyclobenzaprine 10 mg tablet 10 mg PO TID PRN (Reason: muscle spasm) 5 Days Qty: 15 0RF Rx Instructions: Do not take work or while driving. Do not take with oxycodone at the same time. oxycodone 5 mg capsule 5 mg PO Q8H PRN (Reason: pain) 3 Days Qty: 9 0RF Rx Instructions: Partial Fill upon patient request. metformin 1,000 mg tablet 1,000 mg PO BID lisinopril 10 mg tablet 10 mg PO DAILY cholecalciferol (vitamin D3) 25 mcg (1,000 unit) capsule 25 mcg PO DAILY gabapentin 300 mg capsule 300 mg PO BEDTIME (DME) FreeStyle Logan 2 Sensor Kit See Rx Instructions .ROUTE Q2W Qty: 1 Rx Instructions: As directed nicotine (polacrilex) 2 mg lozenge 2 mg PO lidocaine 5 % adhesive patch,medicated 0 patch topical vitamin E (dl, acetate) 180 mg (400 unit) capsule 180 mg PO QAM ascorbic acid (vitamin C) [Vitamin C] 500 mg tablet 500 mg PO QAM Interventions: ED Discharge Assessment Last Done: 10/21/24 12:26 Discharge Date/Time: 10/21/24 12:28 Print Language: Guyanese
[2024-10-21 12:26] VITALS: BP 142/66; PULSE 87; RESP 18; TEMP 36.6; O2SAT 98
== END 2024-10-21 12:28 | disposition home or self-care (01) ==
PROVIDERS: Emergency Provider Emergency Medicine; PCP Registered Nurse
DX: M25.511 Pain in right shoulder (principal); E11.9 Type 2 diabetes mellitus without complications; I10 Essential (primary) hypertension; E78.5 Hyperlipidemia, unspecified; Z79.84 Long term (current) use of oral hypoglycemic drugs; Z79.899 Other long term (current) drug therapy; Z79.4 Long term (current) use of insulin; Z79.02 Long term (current) use of antithrombotics/antiplatelets; Z87.891 Personal history of nicotine dependence
CPT/HCPCS: 99282; 99283

== ENCOUNTER 2024-12-16 10:21 | Emergency (ER) | payer MEDICAID, SELFPAY ==
[2024-12-16 10:47] VITALS: BP 147/83; PULSE 88; RESP 16; TEMP 36.3; O2SAT 96; BMI 28.7
--- NOTE | 2024-12-16 11:25 | ED.EXTPRO ---
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 Mild-moderate supraspinatus tendinosis. Mild infraspinatus tendinosis. No measurable rotator cuff tear is seen. 2. Mild-moderate acromioclavicular arthritis. 3. Trace subacromial-subdeltoid bursitis. she cannot get joint injections due to elevated BS and she notes she cannot tolerate the pain with just gabapentin. no numbness, weakness, no rash, no new injury she is here for pain control. Complaint: joint pain Onset (ago): year(s) Pain Consistency: constant Location: right and upper extremity Quality: aching and constant Radiation: none Relieving factors: immobilization Exacerbating factors: range of motion and palpation Associated symptoms: denies other symptoms Context: other Related Data Home Medications ?Medication ?Instructions ?Recorded ?Confirmed cholecalciferol (vitamin D3) 25 25 mcg PO DAILY 08/04/20 08/02/22 mcg (1,000 unit) capsule gabapentin 300 mg capsule 300 mg PO BEDTIME 08/04/20 08/02/22 lisinopril 10 mg tablet 10 mg PO DAILY 08/04/20 08/02/22 metformin 1,000 mg tablet 1,000 mg PO BID 08/04/20 08/02/22 ascorbic acid (vitamin C) 500 mg 500 mg PO QAM 03/11/23 tablet (Vitamin C) flash glucose sensor (FreeStyle #1 ea 03/11/23 Logan 2 Sensor kit) lidocaine 5 % topical patch 0 patch topical 03/11/23 nicotine (polacrilex) 2 mg buccal 2 mg PO 03/11/23 lozenge vitamin E (dl, acetate) 180 mg 180 mg PO QAM 03/11/23 (400 unit) capsule Previous Rx's ?Medication ?Instructions ?Recorded pen needle, diabetic 32 gauge x #100 ea 06/08/2008/01 (BD Ultra-Fine Micro Pen Needle) albuterol sulfate 90 mcg/actuation 2 puff PO Q2H PRN for wheezing 02/13/21 aerosol inhaler (ProAir HFA) #8.5 grams levothyroxine 50 mcg tablet 50 mcg PO DAILY 30 days #30 tabs 12/14/21 acetaminophen 500 mg tablet 1,000 mg (2 x 500 mg) PO QID PRN 01/28/22 pain #30 tabs cyclobenzaprine 5 mg tablet 5 mg PO TID PRN muscle spasm #10 01/28/22 tabs insulin degludec 100 unit/mL (3 14 unit (0.14 mL) subcut DAILY 30 06/28/22 mL) subcutaneous pen (Tresiba days #4.2 mL FlexTouch U-100 insulin) insulin lispro 100 unit/mL 1 sliding scale dose subcut 08/29/22 subcutaneous pen USEASDIRECTD 30 days #30 mL lancets 33 gauge (TRUEplus Lancets) 1 gauge miscellaneous QID for 09/04/22 diabetes mellitus 30 days #100 ea blood sugar diagnostic (FreeStyle 1 strip miscellaneous QID for 10/29/22 Lite Strips) diabetes mellitus 30 days #150 strips atorvastatin 40 mg tablet 40 mg PO DAILY 30 days #30 tabs 11/08/22 acetaminophen 500 mg tablet 500 mg PO Q6H PRN pain #30 tabs 08/11/23 (Tylenol Extra Strength) lidocaine 5 % topical patch 1 patch topical DAILY #30 ea 08/11/23 (Lidoderm) cyclobenzaprine 5 mg tablet 5 mg PO TID PRN muscle spasm #20 02/21/24 tabs lidocaine 5 % topical patch 2 patch topical DAILY #30 ea 02/21/24 cyclobenzaprine 10 mg tablet 10 mg PO TID PRN muscle spasm 5 04/09/24 days #15 tabs oxycodone 5 mg capsule 5 mg PO Q8H PRN pain 3 days #9 caps 04/09/24 prednisone 20 mg tablet 40 mg (2 x 20 mg) PO DAILY 5 days 04/09/24 #10 tabs ibuprofen 600 mg tablet 600 mg PO Q6H PRN pain #20 tabs 09/16/24 oxycodone 5 mg tablet 5 mg PO Q6H PRN pain #16 tabs 09/16/24 cyclobenzaprine 10 mg tablet 10 mg PO TID PRN muscle spasm #20 10/21/24 tabs tramadol 50 mg tablet 50 mg PO Q6H PRN severe pain 10/21/24 (scale score 7-10) #16 tabs tramadol 50 mg tablet 50 mg PO BID PRN pain #20 tabs 12/16/24 Allergies Allergy/AdvReac Type Severity Reaction Status Date / Time meperidine [From DEMEROL] Allergy Intermediate HALLUCINATI Verified 12/16/24 10:51 ONS Review of Systems Review of Systems: Constitutional : No Fever, No Chills ENT/Mouth : No Ear Pain, No Hoarseness, No sore throat Eyes: No Eye Pain, No Swelling, No Redness, No Foreign Body Cardiovascular : No Chest Pain, No SOB Respiratory : No Cough, No Dyspnea Gastrointestinal : No Nausea, No Vomiting, No Diarrhea, No abdominal Pain Genitourinary : No Dysuria, No Hematuria Musculoskeletal : positive joint pain, No Myalgias, No Joint Swelling Skin : No Skin lacerations, No rash Neuro : No Weakness, No Numbness, No Loss of Consciousness, No Dizziness, No Headache All other systems reviewed and are negative [facility] Past Medical History Attestation statement: The following information was validated with the patient. Source: old records reviewed Medical History Cervical high risk HPV (human papillomavirus) test positive Vitamin D deficiency Hypothyroidism Multinodular thyroid HLD (hyperlipidemia) HTN (hypertension) T2DM (type 2 diabetes mellitus) Surgical History History of lipoma History of excision of mass (05/08/22) History of thyroid surgery Hx of colonoscopy Hx of hand surgery Hx of tubal ligation Hx of eye surgery Family History Family History Father Diabetes CVD (cardiovascular disease) Myocardial infarction Mother Diabetes CVD (cardiovascular disease) Breast cancer Sister Breast cancer Social History Social History Household Members Other:: son Housing: Apartment Alcohol intake: never Patient Tobacco Use Status: Former Tobacco user Tobacco use type: Cigarette Years Smoked: 40 Do you have a plan to hurt others: No Plan Sexual orientation: Straight/Heterosexual Gender identity: Female Physical Exam Vital Signs: Vital Signs: Last Vital Signs Temp 97.3 F 12/16/24 10:47 Pulse 88 12/16/24 10:47 Resp 16 12/16/24 10:47 BP 147/83 H 12/16/24 10:47 Pulse Ox 96 12/16/24 10:47 O2 Del Method Room Air 12/16/24 10:47 BMI result Body Mass Index 28.7 Appearance: Alert. Oriented X3. No acute distress. Eyes: Pupils equal, round and reactive to light. ENT: Pharynx normal. Neck: Normal inspection. Neck supple. CVS: Normal heart rate and rhythm. Pulses normal. Respiratory: No respiratory distress. Breath sounds normal. Abdomen: Soft and nontender. Skin: Skin warm and dry. Normal skin color. Normal skin turgor. Extremities: No lower extremity edema. R arm no rash no swelling distal NV intact pain along R shoulder joint and deltoid issue Neuro: Oriented X 3. No motor deficit. No sensory deficit. CN2-12 intact Medical Decision Making Medical Decision Making MDM Narrative: 64 yo female with PMH of HTN, HLD, DM here with known tendonitis, bursitis, frozen shoulder - at this time the patient will need pain control and will ask her to call physical therapy. There is no new injury will provide a short course of analgesia. Differential Diagnosis Differential Diagnoses: The differential diagnosis associated with the presentation includes bursitis, tendonitis, arthralgia Admission/Observation Consideration of admission/observation: Escalation of care including admission/observation considered can trial pain control at home External Record Review External record reviewed: Outpatient record and Prior outpatient radiology Discharge Plan Discharge Clinical Impression: Chronic right shoulder pain Patient Disposition: Home, Self-Care Instructions: Arthralgia (ED) Additional Instructions: return for any worsening symptoms or concerns rash, fevers, swelling Rehabilitation?? [facility]?Physical Therapy?in [place] [id number]. [phone] ? [facility] [place] Prescriptions: New tramadol 50 mg tablet 50 mg PO BID PRN (Reason: pain) Qty: 20 0RF No Action (DME) pen needle, diabetic [BD Ultra-Fine Micro Pen Needle] 32 gauge x 1/4 needle See Rx Instructions .ROUTE .MEDSUPPLY Qty: 100 11RF Rx Instructions: 4x daily albuterol sulfate [ProAir HFA] 90 mcg/actuation HFA aerosol inhaler 2 puff PO Q2H PRN (Reason: for wheezing) Qty: 8.5 6RF levothyroxine 50 mcg tablet 50 mcg PO DAILY 30 Days Qty: 30 11RF insulin degludec [Tresiba FlexTouch U-100] 100 unit/mL (3 mL) insulin pen 14 unit subcut DAILY 30 Days Qty: 4.2 3RF insulin lispro 100 unit/mL insulin pen 1 sliding scale dose subcut USEASDIRECTD 30 Days Qty: 30 11RF Rx Instructions: 7 units with meals, 2 units with snacks. lancets [TRUEplus Lancets] 33 gauge misc 1 gauge miscellaneous QID 30 Days Qty: 100 11RF FreeStyle Lite Strips Strip 1 strip miscellaneous QID 30 Days Qty: 150 11RF atorvastatin 40 mg tablet 40 mg PO DAILY 30 Days Qty: 30 2RF Rx Instructions: Complete labs for further refills. acetaminophen 500 mg tablet 1,000 mg PO QID PRN (Reason: pain) Qty: 30 0RF cyclobenzaprine 5 mg tablet 5 mg PO TID PRN (Reason: muscle spasm) Qty: 10 0RF oxycodone 5 mg tablet 5 mg PO Q6H PRN (Reason: pain) Qty: 16 0RF Rx Instructions: Partial Fill upon patient request. ibuprofen 600 mg tablet 600 mg PO Q6H PRN (Reason: pain) Qty: 20 0RF acetaminophen [Tylenol Extra Strength] 500 mg tablet 500 mg PO Q6H PRN (Reason: pain) Qty: 30 0RF lidocaine [Lidoderm] 5 % adhesive patch,medicated 1 patch topical DAILY Qty: 30 0RF Rx Instructions: leave on most painful area for up to 12 hrs cyclobenzaprine 5 mg tablet 5 mg PO TID PRN (Reason: muscle spasm) Qty: 20 0RF lidocaine 5 % adhesive patch,medicated 2 patch topical DAILY Qty: 30 0RF Rx Instructions: leave on most painful area for up to 12 hrs prednisone 20 mg tablet 40 mg PO DAILY 5 Days Qty: 10 0RF cyclobenzaprine 10 mg tablet 10 mg PO TID PRN (Reason: muscle spasm) 5 Days Qty: 15 0RF Rx Instructions: Do not take work or while driving. Do not take with oxycodone at the same time. oxycodone 5 mg capsule 5 mg PO Q8H PRN (Reason: pain) 3 Days Qty: 9 0RF Rx Instructions: Partial Fill upon patient request. cyclobenzaprine 10 mg tablet 10 mg PO TID PRN (Reason: muscle spasm) Qty: 20 0RF tramadol 50 mg tablet 50 mg PO Q6H PRN (Reason: severe pain (scale score 7-10)) Qty: 16 0RF metformin 1,000 mg tablet 1,000 mg PO BID lisinopril 10 mg tablet 10 mg PO DAILY cholecalciferol (vitamin D3) 25 mcg (1,000 unit) capsule 25 mcg PO DAILY gabapentin 300 mg capsule 300 mg PO BEDTIME (DME) FreeStyle Logan 2 Sensor Kit See Rx Instructions .ROUTE Q2W Qty: 1 Rx Instructions: As directed nicotine (polacrilex) 2 mg lozenge 2 mg PO lidocaine 5 % adhesive patch,medicated 0 patch topical vitamin E (dl, acetate) 180 mg (400 unit) capsule 180 mg PO QAM ascorbic acid (vitamin C) [Vitamin C] 500 mg tablet 500 mg PO QAM Print Language: French
[2024-12-16 11:42] VITALS: BP 147/83; PULSE 88; RESP 16; TEMP 36.3; O2SAT 96
== END 2024-12-16 11:34 | disposition home or self-care (01) ==
PROVIDERS: Emergency Provider Emergency Medicine; PCP Registered Nurse
DX: M25.511 Pain in right shoulder (principal); E11.9 Type 2 diabetes mellitus without complications; Z79.4 Long term (current) use of insulin; Z79.899 Other long term (current) drug therapy
CPT/HCPCS: 99282; 99283

== ENCOUNTER 2024-12-31 12:37 | Outpatient (REF) | payer MEDICAID, SELFPAY ==
[2024-12-31 13:53] LABS: Creatinine Urine 69.37 mg/dL
[2024-12-31 14:04] LABS: Cholesterol 132 mg/dL (<200); HDL Cholesterol 47 mg/dL (>40); LDL Cholesterol Calculated 68 mg/dL (<100); Triglycerides 86 mg/dL (<150)
--- OUTSIDE RECORDS SUMMARY | 2024-12-31 14:42 | XMS_ITS | Encounter Summary ---
Author Organization [employer] [facility] Address [address] [place] [address] [address] [place] [address] Care Team Providers Care Hospital Administrator Name Role Phone Alanna Godinez Primary Care Provider [phone] Wendy Hill Unavailable Christen Landis RN Unavailable [phone] Encounter Details Date Type Department Care Team (Late st Contact Info) Description 04/10/2023 Orders Only [facility] MEDICINE [address] [place], [place] [phone] Provider, MD Emily Social History Tobacco Use [...] Care Team (Late st Contact Info) Description 01/08/2025 2:00 PM EDT Office Visit [facility] CH[facility] MED & PEDS [address] [place], [place] [phone] Alanna Godinez FNP [address] [place] [address] 04/07/2025 11:15 AM EDT Office Visit [facility] MEDICINE [address] [place] [address] Alanna Godinez FNP [address] [place] [address] documented as of this encounter Goals Goal Patient Goal Type Associated Problems Recent Progress Patient-Stated? Author Short-term: Promote adherence to treatment regimen General No Juan Huang PharmD Smoking cessation General Jaun Garza PharmD Note: Continue using nicotine lozenges as needed documented as of this encounter Procedures Procedure Name Priority Date/Time Associated Diagnosis Comments COLONOSCOPY Routine 10/30/2018 documented in this encounter Results * Colonoscopy (10/30/2018) Historical Provider HEALTH MAINTENANCE Final Result documented in this encounter Visit Diagnoses Not on filedocumented in this encounter Additional Health Concerns Assessment Noted Time PHQ-9 Depression Total Score: 0 01/11/20 23 1:31 PM EDT documented as of this encounter Care Teams Hospital Administrator Relationship Specialty Start Date End Date Alanna Godinez FNP [address] [place] [address] PCP - General Family Medicine 11/29/22 Wendy Hill Community Health Worker 12/30/2301/11 Christen Landis RN [address] [place] [address] Claims Examiner 12/30/23 documented as of this encounter
== END 2024-12-31 12:38 | disposition home or self-care (01) ==
LOC: HO.HHCL 12:37
PROVIDERS: Visit Provider Internal Medicine
DX: I10 Essential (primary) hypertension (principal); E11.9 Type 2 diabetes mellitus without complications; Z79.4 Long term (current) use of insulin
CPT/HCPCS: 36415; 80061; 82043; 82570

== ENCOUNTER 2025-01-11 12:10 | Outpatient (REF) | payer MEDICAID, SELFPAY ==
--- OUTSIDE RECORDS SUMMARY | 2025-01-11 13:34 | XMS_ITS | Encounter Summary ---
Author Organization [employer] Address [address] [place] [address] [address] [place] [address] Care Team Providers Care Ergonomist Name Role Phone Alanna Godinez Primary Care Provider [phone] Wendy Hill Unavailable Christen Landis RN Unavailable [phone] Encounter Details Date Type Department Care Team ([facility] Contact Info) Description 04/10/2023 Orders Only [facility] MEDICINE [address] [place] [phone] Provider, MD Emily Social History Tobacco Use [...] Care Team (Late st Contact Info) Description 04/07/2025 11:15 AM EDT Office Visit [facility] MEDICINE [address] [place], [place] [phone] Alanna Godinez FNP [address] [place], [place] [phone] documented as of this encounter Goals Goal Patient Goal Type Associated Problems Recent Progress Patient-Stated? Author Short-term: Promote adherence to treatment regimen General No Reina, Juan, PharmD Smoking cessation General No Juan Huang PharmD Note: Continue using nicotine lozenges as needed documented as of this encounter Procedures Procedure Name Priority Date/Time Associated Diagnosis Comments HM COLONOSCOPY Routine 10/30/2018 documented in this encounter Results * Hm Colonoscopy (10/30/2018) us Historical Provider HEALTH MAINTENANCE Final Result documented in this encounter Visit Diagnoses Not on filedocumented in this encounter Additional Health Concerns Assessment Noted Time PHQ-9 Depression Total Score: 0 01/11/20 23 1:31 PM EDT documented as of this encounter Care Teams Ergonomist Relationship Specialty Start Date End Date Alanna Godinez FNP [address] [place] [address] PCP - General Family Medicine 11/29/22 Wendy Hill Community Health Worker 12/30/2301/11 Christen Landis RN [address] [place] [address] Registration Coordinator 12/30/23 documented as of this encounter
[2025-01-12 07:02] LABS: Rubella IgG Antibody 0.91 Index; Rubeola IgG (Measles) >300.00 AU/mL
[2025-01-14 01:54] LABS: TS Negative Control Passed; TS Panel A 0; TS Panel B 0; TS Positive Control Passed; TSpotTB Negative (Negative)
== END 2025-01-11 12:11 | disposition home or self-care (01) ==
LOC: HO.HHCL 12:10
PROVIDERS: Visit Provider Registered Nurse
DX: Z00.00 Encounter for general adult medical examination without abnormal findings (principal)
CPT/HCPCS: 36415; 86481; 86735; 86762; 86765; 86787

== ENCOUNTER 2025-03-19 10:26 | Outpatient (AMB) | payer MEDICAID, SELFPAY ==
--- NOTE | 2025-03-19 07:50 | MHC.OFFVIS ---
Intake Visit Reasons: LDCT Allergies meperidine (From DEMEROL) Allergy (Intermediate, Verified 12/16/24 10:51) HALLUCINATIONS HPI HPI LDCT: Details: Initial visit for this 64yo former smoker with a 22PYH. Patient started smoking at age 16 for 45 years at 1/2ppd. She quit 3 years ago in 2021. . Denies marijuana use. Denies second hand smoke exposure. Denies exposure to chemicals or substances like asbestos. . Reports family history of lung cancer. Brother passed. Denies personal history of cancers. Denies chest CT in last year. 03/13/[address] done by Pulmonary showed 8mm LLL nodule. . Denies recent travel outside the [place]. Denies recent respiratory illness or recent hospitalization for respiratory issues. Denies testing positive for COVID. Admits receiving COVID Vaccine. . Denies fever, chills, new/worsening cough, hemoptysis, hoarseness or dysphagia. Denies significant chest pain, significant dyspnea or unintentional weight loss. Patient Lung Cancer Screening Questionnaire reviewed with patient by provider. . Shared Decision Making Completed. Patient meets criteria. Discussed in detail with patient, the risk vs benefit of LDCT screening. Patient consents to proceed with scan. Discussed andencouraged continued smoking cessation. Hebrew speaking - interpretive services used - ID# [id number] [facility] Medical History (Updated 03/19/25 @ 10:52 by Kemi Bland PA-C) HTN (hypertension) HLD (hyperlipidemia) T2DM (type 2 diabetes mellitus) Hypothyroidism Multinodular thyroid Asthma-COPD overlap syndrome Personal history of nicotine dependence Vitamin D deficiency Cervical high risk HPV (human papillomavirus) test positive Surgical History History of lipoma History of excision of mass (05/08/22) History of thyroid surgery Hx of colonoscopy Hx of hand surgery Hx of tubal ligation Hx of eye surgery Family History (Updated 03/19/25 @ 10:41 by Kemi Bland PA-C) Father Diabetes CVD (cardiovascular disease) Myocardial infarction Mother Diabetes CVD (cardiovascular disease) Breast cancer Sister Breast cancer Brother Lung cancer Social History (Updated 03/19/25 @ 10:53 by Kemi Bland PA-C) Household Members Other:: son Housing: Apartment Alcohol intake: never Patient Tobacco Use Status: Former Tobacco user Tobacco use type: Cigarette Years Smoked: (onset 16yo, 1/2ppd x 45yrs, 22pyh - quit 2021) Sexual orientation: Straight/Heterosexual Gender identity: Female Female Reproductive History Menstrual Age of Menarche: 12 Assessment & Plan Assessment & Plan (1) Personal history of nicotine dependence: Comment: (onset 16yo, 1/2ppd x 45yrs, 22pyh - quit 2021) Code(s): Z87.891 - Personal history of nicotine dependence Category: Medical Plan: - SDM visit completed today in office. - Patient meets criteria for LDCT for lung cancer screening purposes and is asymptomatic. - Smoking cessation counseling offered. Patients can always call [phone]. - Will arrange for a LDCT scan of the chest for screening purposes at [facility]. - Risks, benefits, and alternatives were discussed in detail and the patient agrees to proceed. - Risks discussed include but are not limited to: radiation exposure, anxiety during testing and while awaiting results, false negatives, false positives and possibility of additional intervention such as further imaging or surgical procedures for benign disease. - Benefits are obviously detection of lung cancer at an early stage which can lead to improved outcomes. - Discussed the importance of screening program compliance with adherence to yearly LDCT scan as scheduled - or sooner interval scans for personalized screening regimen. - Discussed follow up plan. Our office will send a letter discussing results and if needed set up phone call and office visit based on CT findings. - Patient educated on results categorization and the management decisions for suspicious findings potentially found on the screening LDCT scan. Any patient with a Lung RADS score of 3 or 4 will be reviewed by a multidisciplinary team at [facility] to form a plan of action in regards to scan findings. - If further work up is warranted for a suspicious lung finding this will be followed by the Lung Cancer Screening program in conjunction with the Thoracic Surgery Department at [facility]. - A copy of the office note and LDCT will be sent to the patient's PCP - as well as documentation on any associated further plans of care. - Incidental findings on LDCT are the PCP's responsibility. These findings are indicated with an S finding on the LDCT Assessment. A note discussing the findings will be sent to the PCP who is then responsible for further management. - All questions answered.? Coding Level of Care Code Lung Cancer Screening G0296 Diagnoses Personal history of nicotine dependence Z87.896
--- OUTSIDE RECORDS SUMMARY | 2025-03-19 10:29 | XMS_ITS | Encounter Summary ---
Author Organization [employer] Address [address] [place] [address] [address] [place] [address] Care Team Providers Care Glaciologist Name Role Phone Alanna Godinez Primary Care Provider [phone] Wendy Hill Unavailable Christen Landis RN Unavailable [phone] Christen Landis RN Unavailable [phone] Wendy Hill Unavailable Encounter Details Date Type Department Care Team (Late Contact Info) Description 04/10/2023 Orders Only [facility] MEDICINE [address] [place] [id number] Provider, MD Emily Social History Tobacco Use [...] Department Care Team (Late Contact Info) Description 04/07/2025 11:15 AM EDT Office Visit [facility] MEDICINE [address] [place], [place] [phone] Alanna Godinez FNP [address] [place] [phone] documented as of this encounter Goals Goal [...] documented as of this encounter Care Teams Glaciologist Relationship Specialty Start Date End Date Alanna Godinez FNP [address] [place] [phone] PCP - General Family Medicine 11/29/22 Wendy Hill Community Health Worker 12/30/2301/11 Christen Landis RN [address] [place] [address] Face Painter 12/30/23 Christen Landis RN [address] [place] [address] Registered Nurse Family Medicine 01/18/25 Wendy Hill 01/18/25 documented as of this encounter
== END 2025-03-19 11:05 | disposition home or self-care (01) ==
LOC: HO.HPS 10:26
PROVIDERS: PCP Registered Nurse; Referring Provider Registered Nurse; Visit Provider Physician Assistant Medical
DX: Z87.891 Personal history of nicotine dependence (principal)
CPT/HCPCS: G0296

== ENCOUNTER 2025-03-19 10:48 | Outpatient (REF) | payer MEDICAID, SELFPAY ==
--- NOTE | ~2025-03-19 | CT_ITS ---
CLINICAL HISTORY: Z87.891 - Personal history of nicotine dependence CT lung cancer screening (LDCT) Comparison: Chest CT from 03/13/2022 Technique: Axial CT images of the chest using low-dose technique. Referring provider counseled the patient on shared decision-making for LDCT screening. Additional counseling was provided on smoking cessation. Effective radiation dose total: DLP 45.1 mGycm, CTDIvol 1.5 mGy. Findings: Lung: Calcified remnants of old granulomatous processes are unchanged, including in the left lower lobe. No significant change in small solid pulmonary nodules measuring 4 mm or less in the periphery of the both lungs. Solid pulmonary nodule measures 4 mm in the lateral basal segment of the right lower lobe (imaged 100 of series 4), without significant change. Resolution of the multiple previous nodules and ground-glass opacities with a essentially resolution of the previous right lower lobe ground-glass lesions. Mild atelectasis and scarring persists. Mild bilateral emphysematous changes. 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 Other: Mild/minimal degenerative changes include imaged shoulders and imaged spine. Impression: Category 2: Benign appearance or behavior, continue annual screening This document has been electronically signed by: Simeon Noyola MD on 03/20/2025 19:55:13
== END 2025-03-19 10:49 | disposition home or self-care (01) ==
LOC: HO.CT 10:48
PROVIDERS: PCP Registered Nurse; Visit Provider Physician Assistant Medical
DX: Z12.2 Encounter for screening for malignant neoplasm of respiratory organs (principal); Z87.891 Personal history of nicotine dependence
CPT/HCPCS: 71271; G0296

== ENCOUNTER → 2025-03-19 10:51 | Outpatient (BNV) | payer MEDICAID, SELFPAY | PROVIDERS: PCP Registered Nurse; Visit Provider Radiology Neuroradiology | DX: Z87.891 Personal history of nicotine dependence (principal) | CPT/HCPCS: 71271 ==

== ENCOUNTER 2025-06-07 10:38 | Emergency (ER) | payer MEDICAID, SELFPAY ==
[2025-06-07 10:53] VITALS: BP 116/53; PULSE 82; RESP 16; TEMP 35.9; O2SAT 98; BMI 27.8
--- NOTE | 2025-06-07 11:01 | ED_ITS ---
HPI - General Adult General Chief complaint: Back Pain/Injury Stated complaint: hip pain Time Seen by Provider: 06/07/25 11:03 Source: patient and postbed stitcher (all interactions with this patient were facilitated with an [facility] ux developer designer) Mode of arrival: ambulatory Limitations: language barrier (all interactions with this patient were facilitated with an [facility] ux developer designer) History of Present Illness ED Provider: Brittany Munoz PA-C HPI narrative: Patient is a 64 year old assigned female at with a history of HTN, HLD, hypothyroidism, asthma-COPD overlap, DM, HPV and tobacco use presenting to the emergency department today with left sided low back pain. Patient states that she bent over to grain picker a basket and felt her left side of the back get pulled and now hurts. Patient denies any other complaints at this time. Related Data Home Medications ?Medication ?Instructions ?Recorded ?Confirmed cholecalciferol (vitamin D3) 25 25 mcg PO DAILY 08/02/22 mcg (1,000 unit) capsule gabapentin 300 mg capsule 300 mg PO BEDTIME 08/04/20 0 08/02/22 lisinopril 10 mg tablet 10 mg PO DAILY 08/04/2012/18 metformin 1,000 mg tablet 1,000 mg PO BID 08/04/2012/18 ascorbic acid (vitamin C) 500 mg 500 mg PO QAM 3 tablet (Vitamin C) flash glucose sensor (FreeStyle #1 ea 03/11/23 Logan 2 Sensor kit) lidocaine 5 % topical patch 0 patch topical 03/11/23 nicotine (polacrilex) 2 mg buccal 2 mg PO 03/11/23 lozenge vitamin E (dl, acetate) 180 mg 180 mg PO QAM 03/11/23 (400 unit) capsule Previous Rx's ?Medication ?Instructions ?Recorded pen needle, diabetic 32 gauge x #100 ea 06/08/2008/01 (BD Ultra-Fine Micro Pen Needle) albuterol sulfate 90 mcg/actuation 2 puff PO Q2H PRN f or wheezing 02/13/21 aerosol inhaler (ProAir HFA) #8.5 grams levothyroxine 50 mcg tablet 50 mcg PO DAILY 30 days #3 0 tabs 12/14/21 acetaminophen 500 mg tablet 1,000 mg (2 x 500 mg) PO Q ID PRN 01/28/22 pain #30 tabs cyclobenzaprine 5 mg tablet 5 mg PO TID PRN muscle spa sm #10 01/28/22 tabs insulin degludec 100 unit/mL (3 14 unit (0.14 mL) subc ut DAILY 30 06/28/22 mL) subcutaneous pen (Tresiba days #4.2 mL FlexTouch U-100 insulin) insulin lispro 100 unit/mL 1 sliding scale dose subcut 08/29/22 subcutaneous pen USEASDIRECTD 30 days #30 mL lancets 33 gauge (TRUEplus Lancets) 1 gauge miscellane ous QID for 09/04/22 diabetes mellitus 30 days #100 ea blood sugar diagnostic (FreeStyle 1 strip miscellaneou s QID for 10/29/22 Lite Strips) diabetes mellitus 30 days #1 50 strips atorvastatin 40 mg tablet 40 mg PO DAILY 30 days #30 t abs 11/08/22 acetaminophen 500 mg tablet 500 mg PO Q6H PRN pain #30 tabs 08/11/23 (Tylenol Extra Strength) lidocaine 5 % topical patch 1 patch topical DAILY #30 ea 08/11/23 (Lidoderm) cyclobenzaprine 5 mg tablet 5 mg PO TID PRN muscle spa sm #20 02/21/24 tabs lidocaine 5 % topical patch 2 patch topical DAILY #30 ea 02/21/24 cyclobenzaprine 10 mg tablet 10 mg PO TID PRN muscle s pasm 5 04/09/24 days #15 tabs oxycodone 5 mg capsule 5 mg PO Q8H PRN pain 3 days #9 caps 04/09/24 prednisone 20 mg tablet 40 mg (2 x 20 mg) PO DAILY 5 days 04/09/24 #10 tabs ibuprofen 600 mg tablet 600 mg PO Q6H PRN pain #20 t abs 09/16/24 oxycodone 5 mg tablet 5 mg PO Q6H PRN pain #16 tab s 09/16/24 cyclobenzaprine 10 mg tablet 10 mg PO TID PRN muscle s pasm #20 10/21/24 tabs tramadol 50 mg tablet 50 mg PO Q6H PRN severe pain 10/21/24 (scale score 7-10) #16 tabs tramadol 50 mg tablet 50 mg PO BID PRN pain #20 ta bs 12/16/24 cyclobenzaprine 5 mg tablet 5 mg PO TID PRN muscle spa sm 7 06/07/25 days #21 tabs Allergies Allergy/AdvReac Type Severity Reaction Status Date / Time meperidine (From DEMEROL) Allergy Intermediate HALLUCINATI Verified 06/07/25 10:54 ONS Review of Systems Constitutional: Constitutional: Reports as per HPI Eyes: Eyes: Reports as per HPI ENT: Reports as per HPI Cardiovascular: Cardiovascular: Reports as per HPI Respiratory: Respiratory: Reports as per HPI Gastrointestinal: Gastrointestinal: Reports as per HPI Genitourinary: Genitourinary: Reports as per HPI Musculoskeletal: Musculoskeletal: Reports as per HPI Integumentary/Breasts: Skin/Breast: Reports as per HPI Neurologic: Reports as per HPI Psychiatric: Psychiatric: Reports as per HPI Endocrine: Endocrine: Reports as per HPI Hematologic/Lymphatic: Hematologic/Lymphatic: Reports as per HPI Allergic/Immunologic: Allergic/Immunologic: Reports as per HPI PMFSH Past Medical History Attestation statement: The following information was validated with the patient. Source: old records reviewed and nursing notes reviewed Medical History HTN (hypertension) HLD (hyperlipidemia) T2DM (type 2 diabetes mellitus) Hypothyroidism Multinodular thyroid Asthma-COPD overlap syndrome Personal history of nicotine dependence Vitamin D deficiency Cervical high risk HPV (human papillomavirus) test positive Surgical History History of lipoma History of excision of mass (05/08/22) History of thyroid surgery Hx of colonoscopy Hx of hand surgery Hx of tubal ligation Hx of eye surgery Family History Family History Father Diabetes CVD (cardiovascular disease) Myocardial infarction Mother Diabetes CVD (cardiovascular disease) Breast cancer Sister Breast cancer Brother Lung cancer Social History Social History Household Members Other:: son Housing: Apartment Alcohol intake: never Patient Tobacco Use Status: Former Tobacco user Tobacco use type: Cigarette Years Smoked: (onset 16yo, 1/2ppd x 45yrs, 22pyh - quit 2021) Advance Directives: No Advance Directives Information Provided: Yes Sexual orientation: Straight/Heterosexual Gender identity: Female Physical Exam ED Vital Signs: Vital Signs - 24 hr 06/07/25 10:53 06/07/25 11:11 Temperature 96.7 F L 96.7 F L Pulse Rate 82 82 Respiratory Rate 16 16 Blood Pressure 116/53 L 116/53 L Pulse Oximetry 98 98 Oxygen Delivery Method Room Air Room Air BMI result Body Mass Index 27.8 Const General: cooperative, no acute distress, alert and awake Nutritional Appearance: well nourished Orientation/consciousness: patient oriented x3 HENMT Head: Yes normal to inspection and Yes atraumatic Ears: hearing grossly normal bilaterally and external ears normal General nose exam: Normal external nose present, no nasal discharge noted and no epistaxis Face and sinus: Yes normal facial exam, No abrasion and No laceration Mouth: Normal oral and palatal mucosa present, no drooling and no muffled voice Eyes General: appearance normal, both eyes and all related structures Periorbital: periorbital findings normal Eyelids: Yes eyelids normal Conjunctivae: conjunctivae normal Pupils: Equal, round and reactive pupils present EOM: EOMs intact bilaterally Neck Neck: Yes normal visual inspection and Yes full ROM Resp Effort & Inspection: normal respiratory effort and able to speak in complete sentences Neuro General: patient oriented x3, moves all extremities and CN's II-XI intact bilaterally Cranial nerves: Yes Equal, round and reactive pupils present Cognition (Neuro): normal cognition Extrem General: Yes normal to inspection, Yes full ROM and Yes capillary refill normal Psych Appearance: grossly normal Mental Status: mental status grossly normal Affect: normal affect Attitude: cooperative Thought process: Normal thought process present Thought content: Normal thought content present Insight: Good insight present (Psych) Course Course Course Narrative: Rapid medical examination performed in triage by Brittany Munoz PA-C: Patient is a 64 year old assigned female at presenting to the emergency department with low back pain. Detailed physical exam and review of systems are deferred to the diesel truck driver. Patient placed back in the waiting room pending room availability. Medical Decision Making Medical Decision Making MDM Narrative: Patient is a 64 year old assigned female at with a history of HTN, HLD, hypothyroidism, asthma-COPD overlap, DM, HPV and tobacco use presenting to the emergency department today with left sided low back pain. Patient's physical exam was as noted in the physical exam portion of this note and consistent with a low back strain. I explained my physical exam findings to the patient. I answered all questions asked by the patient. I stressed the importance of the patient taking her medication as directed (either prescribed or as the over the counter packaging recommends). I stressed the importance of the patient following up with her primary care provider. I stressed the importance of the patient returning to the emergency department immediately if her symptoms were to worsen or if she were to develop any dizziness, shortness of breath, difficulty breathing, chest pain, blurry vision, loss of vision, nausea, vomiting, abdominal pain, fever, chills, back pain, or any other complaints. Patient verbalized agreement and understanding with this treatment plan and discharge. Differential Diagnosis Differential Diagnoses: The differential diagnosis associated with the presentation includes Muscle spasm Low back strain Low back pain Admission/Observation Consideration of admission/observation: Escalation of care including admission/observation considered Patient would have been admitted to the hospital had her clinical presentation warranted hospital admission. Tests considered The following testing was considered but not selected: I considered obtaining an x-ray or CT of the lumbar spine however, the patient's current clinical presentation and mechanism of injury did not warrant it at this time. Prescription Management I considered prescription management with: Pain Medication (patient prescribed pain medication as noted in the MDM Rationale portion of this note. ) Discharge Plan Discharge Clinical Impression: Low back strain, Muscle spasm Patient Disposition: Home, Self-Care Instructions: Low Back Strain (ED), Muscle Spasm (ED), Lower Back Exercises (ED) Additional Instructions: IF you are prescribed home medications and/or you are taking over the counter medications at home- it is very important you continue to do so as prescribed / directed unless told otherwise. SI le recetan medicamentos y/o est? tomando medicamentos de venta logan, es muy importante que contin?e haci?ndolo seg?n lo recetado/indicado a menos que le indiquen lo contrario. Follow up with your primary care provider. Return to the emergency department immediately if your symptoms worsen or if you develop any dizziness, shortness of breath, difficulty breathing, chest pain, blurry vision, loss of vision, nausea, vomiting, abdominal pain, fever, chills, back pain, or any other complaints. Con?seguimiento?con nieto m?dico de atenci?n primaria. Acuda inmediatamente al servicio de urgencias si kiya s?ntomas empeoran o si presenta falta de aliento, dificultad para respirar, dolor tor?cico, mareos, aturdimiento, dolor de espalda, dolor abdominal, fiebre, escalofr?os o cualquier otro s?ntoma. Please see the information below about our Patient Portal. If you are not yet enrolled in the [facility] Patient Portal, you will receive an enrollment email invitation following your visit to any [facility] care setting. You may also self-enroll in the Patient Portal by visiting our website: [email or web address] The following information is required to access the Patient Portal: - Your [facility] Medical Record Number - Your personal home email address (must match what is in your electronic medical record, Registration staff can assist with this) - Name - Date of Capabilities of the Patient Portal: - Message some providers - View upcoming appointments - Access your health summary, medical history, and visit history - View current conditions and allergies - View procedure and lab results - View your medications, including guidelines, side effects, and precautions - Complete pre-appointment questionnaires requested by your provider - Ready summary reports of your office visits and procedures To access the Patient Portal Mobile Ariana, follow these directions: - Search [employer] in the Ariana Store or [employer] Store - Download the Ariana - Search for [facility] - Enter your login/password Portal del paciente Si usted no esta inscrito en el portal de pacientes de [facility], recibira rhoda invitacion de inscripcion despues de nieto visita al [facility] o al [facility] via correo electronico. Tambien puede inscribirse voluntariamente en el portal de pacientes visitando nuestra pagina web: [email or web address] La siguiente informacion sera requerida para acceder al portal: - Nieto lily de historia medica de [facility] - Nieto direccion de correo electronico personal - Nombre - Fecha de nacimiento Capacidades: Las siguientes capacidades estan disponibles en el portal de pacientes: - Enviar mensajes a algunos doctores - Verificar proximas citas - Acceso a nieto historial de ev, registro medico e historial de visitas - Conner las condiciones actuales y alergias conner procedimientos y resultados del laboratorio - Conner kiya medicamentos, incluyendo las pautas - Efectos secundarios y precauciones - Completar o llenar formularios / cuestionarios de - Citas solicitadas por nieto doctor - Leer los resumenes de reportes medicos de kiya visitas y procedimientos [place] acceder a la aplicacion movil: - [employer] en la Ariana Store o [email or web address] Store - Descargue la aplicacion - [facility] - Ingrese nieto nombre de usuario / Contrasena Prescriptions: New cyclobenzaprine 5 mg tablet 5 mg PO TID PRN (Reason: muscle spasm) 7 Days Qty: 21 0RF No Action (DME) pen needle, diabetic [BD Ultra-Fine Micro Pen Needle] 32 gauge x 1/4 needle See Rx Instructions .ROUTE .MEDSUPPLY Qty: 100 11RF Rx Instructions: 4x daily albuterol sulfate [ProAir HFA] 90 mcg/actuation HFA aerosol inhaler 2 puff PO Q2H PRN (Reason: for wheezing) Qty: 8.5 6RF levothyroxine 50 mcg tablet 50 mcg PO DAILY 30 Days Qty: 30 11RF insulin degludec [Tresiba FlexTouch U-100] 100 unit/mL (3 mL) insulin pen 14 unit subcut DAILY 30 Days Qty: 4.2 3RF insulin lispro 100 unit/mL insulin pen 1 sliding scale dose subcut USEASDIRECTD 30 Days Qty: 30 11RF Rx Instructions: 7 units with meals, 2 units with snacks. lancets [TRUEplus Lancets] 33 gauge misc 1 gauge miscellaneous QID 30 Days Qty: 100 11RF FreeStyle Lite Strips Strip 1 strip miscellaneous QID 30 Days Qty: 150 11RF atorvastatin 40 mg tablet 40 mg PO DAILY 30 Days Qty: 30 2RF Rx Instructions: Complete labs for further refills. acetaminophen 500 mg tablet 1,000 mg PO QID PRN (Reason: pain) Qty: 30 0RF cyclobenzaprine 5 mg tablet 5 mg PO TID PRN (Reason: muscle spasm) Qty: 10 0RF oxycodone 5 mg tablet 5 mg PO Q6H PRN (Reason: pain) Qty: 16 0RF Rx Instructions: Partial Fill upon patient request. ibuprofen 600 mg tablet 600 mg PO Q6H PRN (Reason: pain) Qty: 20 0RF tramadol 50 mg tablet 50 mg PO BID PRN (Reason: pain) Qty: 20 0RF acetaminophen [Tylenol Extra Strength] 500 mg tablet 500 mg PO Q6H PRN (Reason: pain) Qty: 30 0RF lidocaine [Lidoderm] 5 % adhesive patch,medicated 1 patch topical DAILY Qty: 30 0RF Rx Instructions: leave on most painful area for up to 12 hrs cyclobenzaprine 5 mg tablet 5 mg PO TID PRN (Reason: muscle spasm) Qty: 20 0RF lidocaine 5 % adhesive patch,medicated 2 patch topical DAILY Qty: 30 0RF Rx Instructions: leave on most painful area for up to 12 hrs prednisone 20 mg tablet 40 mg PO DAILY 5 Days Qty: 10 0RF cyclobenzaprine 10 mg tablet 10 mg PO TID PRN (Reason: muscle spasm) 5 Days Qty: 15 0RF Rx Instructions: Do not take work or while driving. Do not take with oxycodone at the same time. oxycodone 5 mg capsule 5 mg PO Q8H PRN (Reason: pain) 3 Days Qty: 9 0RF Rx Instructions: Partial Fill upon patient request. cyclobenzaprine 10 mg tablet 10 mg PO TID PRN (Reason: muscle spasm) Qty: 20 0RF tramadol 50 mg tablet 50 mg PO Q6H PRN (Reason: severe pain (scale score 7-10)) Qty: 16 0RF metformin 1,000 mg tablet 1,000 mg PO BID lisinopril 10 mg tablet 10 mg PO DAILY cholecalciferol (vitamin D3) 25 mcg (1,000 unit) capsule 25 mcg PO DAILY gabapentin 300 mg capsule 300 mg PO BEDTIME (DME) FreeStyle Logan 2 Sensor Kit See Rx Instructions .ROUTE Q2W Qty: 1 Rx Instructions: As directed nicotine (polacrilex) 2 mg lozenge 2 mg PO lidocaine 5 % adhesive patch,medicated 0 patch topical vitamin E (dl, acetate) 180 mg (400 unit) capsule 180 mg PO QAM ascorbic acid (vitamin C) [Vitamin C] 500 mg tablet 500 mg PO QAM Referrals: Alanna Godinez FNP [Primary Care Provider, Family Practice] Stand Alone Forms: Work/School Release Interventions: ED Discharge Assessment Last Done: 06/07/25 11:11 Discharge Date/Time: 06/07/25 11:15 Print Language: Danish
[2025-06-07 11:11] VITALS: BP 116/53; PULSE 82; RESP 16; TEMP 35.9; O2SAT 98
--- OUTSIDE RECORDS SUMMARY | 2025-06-07 13:29 | XMS_ITS | Encounter Summary ---
Author Organization [employer] Address [address] [place] [address] Care Team Providers Care Retail Center Receptionist Name Role Phone Alanna Godinez Primary Care Provider [phone] Christen Landis RN Unavailable Unavailable Reason for Visit * Reason Comments Med Refill Encounter Details Date Type Department Care Team ([facility] st Contact Info) Description 06/02/2025 Refill [facility] MED[facility]INE [address] [place] [address] Alanna Godinez FNP [address] [place], [place] [id number] Vitiligo Social History Tobacco Use Types Packs/Day Years [...] housing situation today? I have antwan nash 02/04/[address] you li ve. Do you have problems with any of the following? None of the above 02/04/2025 Food Insecurity Answer Date Recorded Within the past 12 months, y ou worried that your food would run out before you got money to buy more: Often true 02/04/2025 Within the past 12 months,th e food you bought just didn't last and you didn't have enough money to get more: Often true 04/2025 Transportation Answer Date Recorded In the past 12 months, has l ack of transportation kept you from medical appts, meetings, work or from getting things needed for daily living? No 01/08/2025 Utilities Answer Date Recorded In the past 12 months, has t he electric, gas, oil or water company threatened to shut off services in your home? No 05/13/2023 Depression Answer Date Recorded Patient Health Questionnaire-2 Score 0 06/24/2024 Internet Access Answer Date Recorded Internet Access Q1 Yes 09/23/2024 Internet Access Q2 Not on file 09/23/2024 Comments Unknown Sex and Gender Information Value Date Recorded Sex Assigned at Female 05/28/2022 10:33 AM EDT Legal Sex Female 10:33 AM EDT Gender Identity Female 05/28/2022 10:33 AM EDT Sexual Orientation Straight 05/28/2022 10 :33 AM EDT documented as of this encounter Plan of Treatment Not on file documented as of this encounter Goals Goal Patient Goal Type Associated Problems Recent Progress Patient-Stated? Author Short-term: Promote adherence to treatment regimen General Juan Garza, PharmD Smoking cessation General Juan Garza PharmD Note: Continue using nicotine lozenges as needed Hemoglobin A1c < 7 Result Component 8.1( 12:13 PM EDT) No Melani Louis documented as of this encounter Visit Diagnoses Diagnosis Vitiligo documented in this encounter Additional Health Concerns Assessment Noted Time PHQ-9 Depression Total Score: 0 06/24/20 24 11:46 AM EST documented as of this encounter Care Teams Retail Center Receptionist Relationship Specialty Start Date End Date Alanna Godinez FNP [address] [place] [address] PCP - General Family Medicine 11/29/22 Christen Landis RN [address] [place] [address] Paint Dipper 12/30/23 documented as of this encounter
--- OUTSIDE RECORDS SUMMARY | 2025-06-07 13:29 | XMS_ITS | Encounter Summary ---
Author Organization [employer] Address [address] [place] [address] Care Team Providers Care Director Business Management Name Role Phone Alanna Godinez Primary Care Provider [phone] Christen Landis RN Unavailable Unavailable Christen Landis RN Unavailable Unavailable Wendy Hill Unavailable Mónica Billy Unavailable [phone] Reason for Visit * Reason Onset Date Comments Call Back Request 03/17/2024 Encounter Details Date Type Department Care Team (Late st Contact Info) Description 03/17/2024 Telephone [facility] MEDICINE [address] [place] [address] Alanna Godinez FNP [address] [place], [place] [phone] Call Back Request Social History Tobacco Use [...] your housing situation today? I have antwan charity 05/13/[address] you li [...] card will be sent to old location filing writer did update new address on demographics documented in this encounter Plan of Treatment Not on file documented as of this encounter Goals Goal Patient Goal Type Associated Problems Recent Progress Patient-Stated? Author Short-term: Promote adherence to treatment regimen General Juan Garza, PharmKory Smoking cessation General Juan Garza PharmD Note: Continue using nicotine lozenges as needed Hemoglobin A1c < 7 Result Component 8.1( 12:13 PM EDT) Melani Blount documented as of this encounter Visit Diagnoses Not on filedocumented in this encounter Additional Health Concerns Assessment Noted Time PHQ-9 Depression Total Score: 0 01/11/20 1:31 PM EDT documented as of this encounter Care Teams Director Business Management Relationship Specialty Start Date End Date Alanna Godinez FNP [address] [place] [id number] PCP - General Family Medicine 11/29/22 Christen Landis RN [address] [place] [address] Powdered Sugar Supervisor 12/30/23 Christen Landis RN [address] [place] [address] Registered Nurse Family Medicine 01/18/25 04/05/25 Wendy Hill 01/18/25 05/26/25 Mónica Billy Registered Nurse 04/05/25 05/05/25 documented as of this encounter
--- OUTSIDE RECORDS SUMMARY | 2025-06-07 13:29 | XMS_ITS | Encounter Summary ---
Author Organization [employer] Address [address] [place] [address] Care Team Providers Care Lead Pony Rider Name Role Phone Alanna Godinez Primary Care Provider [phone] Christen Landis RN Unavailable Unavailable Christen Landis RN Unavailable Unavailable Wendy Hill Unavailable Mónica Billy Unavailable Reason for Visit * Reason Onset Date Comments Call Back Request 02/21/2024 Encounter Details Date Type Department Care Team ([facility] st Contact Info) Description 02/21/2024 Telephone [facility] MEDICINE [address] [place] [address] Alanna Godinez FNP [address] [place], [place] [phone] Call Back Request Social History Tobacco Use [...] is your housing situation today? I have antwanclaudia nash 05/13/[address] you [...] documented as of this encounter Care Teams Lead Pony Rider Relationship Specialty Start Date End Date Alanna Godinez FNP [address] [place] [address] PCP - General Family Medicine 11/29/22 Christen Landis RN [address] [place] [address] Energy Project Engineer 12/30/23 Christne Landis, AJ [address] [place] [address] Registered Nurse Family Medicine 01/18/25 04/05/25 Wendy Hill 01/18/25 05/26/25 Mónica Billy Registered Nurse 04/05/25 05/05/25 documented as of this encounter
--- OUTSIDE RECORDS SUMMARY | 2025-06-07 13:29 | XMS_ITS | Encounter Summary ---
Author Organization [employer] Address [address] [facility] [address] 7t [place] [address] Care Team Providers Care Knuckle Strap Sewer Name Role Phone Alanna Godinez Primary Care Provider [phone] Christen Landis RN Unavailable Unavailable Crhisten Landis RN Unavailable Unavailable Wendy Hill Unavailable Mónica Billy Unavailable [phone] Reason for Visit * Reason Onset Date Comments Prior Authorization 01/13/2024 Encounter Details Date Type Department Care Team (Late st Contact Info) Description 01/13/[address] [facility] MEDICINE [address] [place] [address] Alanna Godinez FNP [address] [place], [place] [phone] Prior Authorization Social History Tobacco Use Types [...] 10:45 AM EDT Tc calvin Olson with [employer] drug utilization program states PA for Ruxolitinib Phosphate (Opzelura) 1.5 % cream was denied. In order for PA approval, prescriber for Opzelura needs to be a mixing and dispensing supervisor and consult notes by a mixing and dispensing supervisor needs to be submitted with PA. documented in this encounter Plan of Treatment Not on file documented as of this encounter Goals Goal Patient Goal Type Associated Problems Recent Progress Patient-Stated? Author Short-term: Promote adherence to treatment regimen General No Juan Huang, PharmD Smoking cessation General Juan Garza, PharmD Note: Continue using nicotine lozenges as needed Hemoglobin A1c < 7 Result Component 8.1( 5 12:13 PM EDT) No Melani Louis documented as of this encounter Visit Diagnoses Not on filedocumented in this encounter Additional Health Concerns Assessment Noted Time PHQ-9 Depression Total Score: 0 01/11/20 23 1:31 PM EDT documented as of this encounter Care Teams Knuckle Strap Sewer Relationship Specialty Start Date End Date Alanna Godinez FNP [address] [place] [address] PCP - General Family Medicine 11/29/22 Christen Landis RN [address] [place] [address] Usability Strategist 12/30/23 Christen Landis RN [address] [place] [address] Registered Nurse Family Medicine 01/18/25 04/05/25 Wendy Hill 01/18/25 05/26/25 Mónica Billy Registered Nurse 04/05/25 05/05/25 documented as of this encounter
--- OUTSIDE RECORDS SUMMARY | 2025-06-07 13:29 | XMS_ITS | Clinical Summary ---
Author Organization [facility] Address [address] [place] [address] Phone Care Team Providers Care Director Learning Name Role Phone Linda Kaplan MD Primary Care Provide r Social History Tobacco Use Types Packs/Day Years Used Date Smoking Tobacco: Every Day Smokeless Tobacco: Current Alcohol Use Standard Drinks/Week Comments Never 0 (1 standard drink = 0.6 oz pur e alcohol) Comments Unknown Sex and Gender Information Value Date Recorded Sex Assigned at Not on file Legal Sex Female 5:06 AM EST Gender Identity Not on file Sexual Orientation Not on file Obstetrics History Last Filed Vital Signs Vital Sign Reading Time Taken Comments Blood Pressure - - Pulse - - Temperature - - Respiratory Rate - - Oxygen Saturation - - Inhaled Oxygen Concentration - - Weight 62.6 kg (138 lb) 07/30/2023 3:52 PM EST Height 160 cm (5' 3 ) 07/30/2023 3:52 PM EST Body Mass Index 24.45 07/30/2023 3:52 PM EST Plan of Treatment Upcoming Encounters Date Type Department Care Team (Late st Contact Info) Description 06/28/2025 3:15 PM EST Consult Orthopedic Surgery - [place] [address] [address] Stanley Borden DPM [address] [address] Health Maintenance Due Date Last Done Comments Breast Cancer Screening 1961 Colorectal Cancer Screening: Colonoscopy 1961 Diabetes: Annual GFR (Glomer ular Filtration Rate) 1961 Diabetes: Annual Foot Exam 1971 Diabetes: Annual Retina Eye Exam 1971 DTaP,Tdap,and Td Vaccines (1 - Tdap) 1980 Hepatitis A Vaccines (1 of 2 - Risk 2-dose series) 1980 Pneumococcal Vaccine: 50+ Ye ars (1 of 2 - PCV) 1980 Cervical Cancer Screening: P ap Smear 1982 RSV Immunization Adult Patie nts (1 - Risk 50-74 years 1-dose series) 2011 Zoster Vaccines (1 of 2) 2011 Hepatitis B Vaccines (1 of 3 - Risk 3-dose series) 2021 Cholesterol Screening (Lipid Panel) 07/01/2022 HIV Screening 07/01/2022 Hepatitis C Screening 07/01/2022 Social Influencers of Health Screening 07/01/2022 Diabetes: Annual Urine Albumin-Creatinine Ratio (uACR) 07/12/2022 Diabetes: Blood Sugar Contro l Test (HGBA1C) 07/12/2022 Hypertension/CHF/CAD Annual BMP Blood Test 07/12/2022 Depression Screening 07/29/2024 COVID-19 Vaccine (1 - 2024-2 6 season) 2025 Influenza Vaccine (#1) 2025 HIB Vaccines Aged Out No longer eligi ble based on patient's age to complete this topic HPV Vaccines Aged Out No longer eligi ble based on patient's age to complete this topic IPV Vaccines Aged Out No longer eligi ble based on patient's age to complete this topic MMR Vaccines Aged Out No longer eligi ble based on patient's age to complete this topic Meningococcal ACWY Vaccine Aged Out N o longer eligible based on patient's age to complete this topic Meningococcal B Vaccine Aged Out No l onger eligible based on patient's age to complete this topic RSV Immunization Patients Un sowmya 20 months Aged Out No longer eligible b ased on patient's age to complete this topic Varicella Vaccines Aged Out No longer eligible based on patient's age to complete this topic Insurance [place]ICA[place] - [place] Care Teams Director Learning Relationship Specialty Start Date End Date Linda Kaplan MD [address] [place] [phone] PCP - General Internal Medicine 02/08/22
--- OUTSIDE RECORDS SUMMARY | 2025-06-07 13:29 | XMS_ITS | Encounter Summary ---
Author Organization [employer] Address [address] [place] [address] 7t [place] [address] Care Team Providers Care Police Crime Scene Technician Name Role Phone Alanna Godinez ANNA Primary Care Provider [phone] Wendy Hill Unavailable Christen Landis RN Unavailable Unavailable Christen Landis RN Unavailable Unavailable Wendy Hill Unavailable Mónica Billy Unavailable [phone] Reason for Visit * Reason Comments Med Refill Encounter Details Date Type Department Care Team (Late st Contact Info) Description 01/07/2023 Refill [facility] [address] [place] [address] Linda Kaplan MD [address] [place] [address] Arthralgia of both hands; Neuropathic pain Social [...] AM EDT documented as of this encounter Functional Status * Over the past 2 weeks, how often have you been bothered by any of the following problems? Question Answer Date of Assessment Author Patient Health Questionnaire-2 Score 0 12/27 1:31 PM EDT Callie Barnes * Over the past 2 weeks, how often have you been bothered by any of the following problems? Question Answer Date of Assessment Author Little interest or pleasure in doing things Not at all 01/10/2023 1:31 PM EDT Callie Barnes Feeling down, depressed, or hopeless Not at all 12/27 1:31 PM EDT Callie Barnes Trouble falling or staying a sleep, or sleeping too much Not at all 01/10/2023 1:31 PM EDT Callie Barnes Feeling tired or having jet le energy Not at all 01/10/2023 1:31 PM EDT Callie Barnes Poor appetite or overeating Not at all 01/10/2023 1: 31 PM EDT Callie Barnes Feeling bad about yourself - or that you are a failure or have let yourself or your family down Not at all 01/10/2023 1:31 PM EDT Callie Barnes Trouble concentrating on thi ngs, such as reading the newspaper or watching television Not at all 01/10/2023 1:31 PM EDT Callie Barnes Moving or speaking so slowly that other people could have noticed? Or the opposite - being so fidgety or restless that you have been moving around a lot more than usual. Not at all 01/10/2023 1:31 PM EDT Callie Barnes Thoughts that you would be b cristian off or hurting yourself in some way Not at all 01/10/2023 1:31 PM EDCallie Will Patient Health Questionnaire-9 Score 0 12/27 1:31 PM EDT Callie Barnes documented as of this encounter Plan of [...] pain documented in this encounter Care Teams Police Crime Scene Technician Relationship Specialty Start Date End Date Alanna Godinez FNP [address] [place] [address] PCP - General Family Medicine 11/29/22 Wendy Hill Community Health Worker 12/30/2301/11 Christen Landis RN Syrup Mixer Helper 12/30/23 Christen Landis, AJ Registered Nurse Family Medicine 01/18/25 04/05/25 Wendy Hill 01/18/25 05/26/25 Mónica Billy Registered Nurse 04/05/25 05/05/25 documented as of this encounter
--- OUTSIDE RECORDS SUMMARY | 2025-06-07 13:29 | XMS_ITS | Encounter Summary ---
Author Organization [employer] Address [address] [facility] 7t [place] [address] Care Team Providers Care Esthetician Facialist Name Role Phone Alanna Godinez ANNA Primary Care Provider Wendy Hill Unavailable Christen Landis RN Unavailable Unavailable Christen Landis RN Unavailable Unavailable Wendy Hill Unavailable Mónica Billy Unavailable Reason for Visit * Reason Comments Med Refill Encounter Details Date Type Department Care Team ([facility] st Contact Info) Description 11/08/2023 Refill [facility] [address] [place] [address] Christen Andrade MD 230 [place] [address] Social History Tobacco Use Types Packs/Day Years [...] to treatment regimen General No Juan Huang, Dionisio Smoking cessation General Juan Garza PharmD Note: Continue using nicotine lozenges as needed Hemoglobin A1c < 7 Result Component 8.1( 5 12:13 PM EDT) Mealni Blount documented as of this encounter Visit Diagnoses Not on filedocumented in this encounter Additional Health Concerns Assessment Noted Time PHQ-9 Depression Total Score: 0 01/11/20 23 1:31 PM EDT documented as of this encounter Care Teams Esthetician Facialist Relationship Specialty Start Date End Date Alanna Godinez FNP [address] [place] [address] PCP - General Family Medicine 11/29/22 Wendy Hill Community Health Worker 12/30/2301/11 Christen Landis RN Plate Cleaner 12/30/23 Christen Landis RN Registered Nurse Family Medicine 01/18/25 04/05/25 Wendy Hill 01/18/25 05/26/25 Mónica Billy Registered Nurse 04/05/25 05/05/25 documented as of this encounter
--- OUTSIDE RECORDS SUMMARY | 2025-06-07 13:29 | XMS_ITS | Encounter Summary ---
Author Organization [employer] Address [address] [facility] [address] 7[address] [place] [address] Care Team Providers Care Strategy Director Name Role Phone Alanna Godinez Primary Care Provider [phone] Christen Landis RN Unavailable Unavailable Encounter Details Date Type Department Care Team (Late st Contact Info) Description 06/07/2025 Refill [facility] [address] [place] [address] Alanna Godinez FNP [address] [place], [place] [phone] Primary hypertension; Vitamin D insufficiency Social History Tobacco Use Types Packs/Day Years [...] as of this encounter Visit Diagnoses Diagnosis Primary hypertension Unspecified essential hypertension Vitamin D insufficiency documented in this encounter Additional Health Concerns Assessment Noted Time PHQ-9 Depression Total Score: 0 06/24/20 24 11:46 AM EST documented as of this encounter Care Teams Strategy Director Relationship Specialty Start Date End Date Alanna Godinez FNP [address] [place] [address] PCP - General Family Medicine 11/29/22 Christen Landis RN [address] [place] [address] Mushroom Spawn Maker 12/30/23 documented as of this encounter
--- OUTSIDE RECORDS SUMMARY | 2025-06-07 13:29 | XMS_ITS | Encounter Summary ---
Author Organization [employer] Address [address] [facility] 7t [place] [address] Care Team Providers Care Bonding Machine Tender Name Role Phone Alanna Godinez ANNA Primary Care Provider [phone] Wendy Hill Unavailable Christen Landis RN Unavailable Unavailable Christen Landis RN Unavailable Unavailable Wendy Hill Unavailable Mónica Billy Unavailable [phone] Encounter Details Date Type Department Care Team (Late st Contact Info) Description 04/10/2023 Orders Only [facility] [address] [place] [address] Provider, MD Emily Social History Tobacco Use [...] documented as of this encounter Care Teams Bonding Machine Tender Relationship Specialty Start Date End Date Alanna Godinez FNP [address] [place] [address] PCP - General Family Medicine 11/29/22 Wendy Hill Community Health Worker 12/30/2301/11 Christen Landis RN Electric Transfer Operator 12/30/23 Christen Landis RN Registered Nurse Family Medicine 01/18/25 04/05/25 Wendy Hill 01/18/25 05/26/25 Mónica Billy Registered Nurse 04/05/25 05/05/25 documented as of this encounter
--- OUTSIDE RECORDS SUMMARY | 2025-06-07 13:29 | XMS_ITS | Encounter Summary ---
Author Organization [employer] Address [address] [place] [address] 7t [place] [address] Care Team Providers Care Rubber Goods Inspector Name Role Phone Alanna Godinez ANNA Primary Care Provider [phone] Wendy Hill Unavailable Christen Landis RN Unavailable Unavailable Christen Landis RN Unavailable Unavailable Wendy Hill Unavailable Mónica Billy Unavailable [phone] Reason for Visit * Reason Comments Med Refill Encounter Details Date Type Department Care Team (Late st Contact Info) Description 12/28/2022 Refill [facility] [address] [place] [address] Magui Bills MD [address] [place] [address] Tobacco dependence syndrome Social History Tobacco Use [...] disorder documented in this encounter Care Teams Rubber Goods Inspector Relationship Specialty Start Date End Date Alanna Godinez FNP [address] [place] [address] PCP - General Family Medicine 11/29/22 Wendy Hill Community Health Worker 12/30/2301/11 Christen Landis, AJ Computer Aided Design Designer 12/30/23 Christen Landis RN Registered Nurse Family Medicine 01/18/25 04/05/25 Wendy Hill 01/18/25 05/26/25 Mónica Billy Registered Nurse 04/05/25 05/05/25 documented as of this encounter
--- OUTSIDE RECORDS SUMMARY | 2025-06-07 13:29 | XMS_ITS | Encounter Summary ---
Author Organization [employer] Address [address] [facility] 7t [place] [address] Care Team Providers Care Clinical Data Assistant Name Role Phone Alanna Godinez Primary Care Provider [phone] Wendy Hill Unavailable Christen Landis RN Unavailable Unavailable Christen Landis RN Unavailable Unavailable Wendy Hill Unavailable Mónica Billy Unavailable Encounter Details Date Type Department Care Team (Late st Contact Info) Description 02/01/[address] [facility] MEDICINE [address] [place] [address] Alanna Godinez FNP [address] [place] [address] Social History Tobacco Use Types Packs/Day Years [...] documented as of this encounter Care Teams Clinical Data Assistant Relationship Specialty Start Date End Date Alanna Godinez FNP [address] [place] [address] PCP - General Family Medicine 11/29/22 Wendy Hill Community Health Worker 12/30/2301/11 Christen Landis RN Harbor Master 12/30/23 Christen Landis RN Registered Nurse Family Medicine 01/18/25 04/05/25 Wendy Hill 01/18/25 05/26/25 Mónica Billy Registered Nurse 04/05/25 05/05/25 documented as of this encounter
--- OUTSIDE RECORDS SUMMARY | 2025-06-07 13:29 | XMS_ITS | Encounter Summary ---
Author Organization [employer] Address [address] [facility] 7t [place] [address] Care Team Providers Care Open Hearth Stockyard Supervisor Name Role Phone Alanna Godinez Primary Care Provider [phone] Wendy Hill Unavailable Christen Landis RN Unavailable Unavailable Christen Landis RN Unavailable Unavailable Wendy Hill Unavailable Mónica Billy Unavailable Reason for Visit * Reason Onset Date Comments Prior Authorization 12/18/2023 Encounter Details Date Type Department Care Team (Late st Contact Info) Description 12/18/2023 Telephone [facility] [address] [place] [address] Alanna Godinez FNP [address] [place], [place] [phone] Prior Authorization Social History Tobacco Use Types [...] a fucking paper and send it to [employer] pt also stated I'm going to have to go in tomorrow and speak to a higher up in order to actually get attended. Mattress Spring Encaser advised pt on protocol and apologized for the inconvenience and let pt know will be forwarding message. If any questions please contact pt at [phone]. documented in this encounter Plan of Treatment [...] documented as of this encounter Care Teams Open Hearth Stockyard Supervisor Relationship Specialty Start Date End Date Alanna Godinez FNP [address] [place] [address] PCP - General Family Medicine 11/29/22 Wendy Hill Community Health Worker 12/30/2301/11 Christen Landis RN Patternmaker Hand 12/30/23 Christen Landis RN Registered Nurse Family Medicine 01/18/25 04/05/25 Wendy Hill 01/18/25 05/26/25 Mónica Billy Registered Nurse 04/05/25 05/05/25 documented as of this encounter
--- OUTSIDE RECORDS SUMMARY | 2025-06-07 13:29 | XMS_ITS | Encounter Summary ---
Author Organization [employer] Address [address] [facility] 7t [place] [address] Care Team Providers Care Connie Cleaner Name Role Phone Alanna Godinez Primary Care Provider Wendy Hill Unavailable Christen Landis RN Unavailable Unavailable Christen Landis RN Unavailable Unavailable Wendy Hill Unavailable Mónica Billy Unavailable Reason for Visit * Reason Onset Date Comments Medication Question 10/14/2023 Care Coordination 10/14/2023 C3 Initial a ssessment Encounter Details Date Type Department Care Team ([facility] st Contact Info) Description 10/14/2023 Telephone [facility] [address] [place], [place] [phone] Alanna Godinez FNP [address] [place], [place] [phone] Medication Question; Care Coordination (C3 Initial assessment) Social History Tobacco Use Types [...] Landis RN - 10/22/2023 3:10 PM EDT CM Christen Landis RN and JUAN C Hill placed outbound call to patient for agreed upon time for initial assessment for enrollment into Adult Care Management Program. Patient's name, , and address were verified. Pt is a 63 year old female Guyanese speaking female with medical history significant for hypertension, type 2 diabetes chronic left shoulder pain. Pt reports she sees chiropractor once a week and has an upcoming appointment with endocrinology for a biopsy on 10/28/2023. Pt states she saw the wood and wood products labourer about a year ago and was told [...] wears eye glasses and last saw the cessation systems outreach specialist about 4-5 months ago. Pt states she [...] understanding, and able to repeat back to clinical writer. A follow up call will be placed [...] PM EDT TC placed to Evita at [facility]. Evita states that the patient [...] PM EDT TC returned to patient via [employer] Adjuster. No answer. TC placed to patient without [...] Askedpatient for permission to call back with case maker line. Patient agreed. TC placed again to patient via [employer] Adjuster and checked understanding of above and patient confirmed that she only wants Lantus and Novalog. Patient then began speaking at length recounting a conversation. When the patient stopped speaking, it seemed that the case maker had dropped the line. TC placed again to patient via [employer] Appliance Adjuster. Confirmed that patient had a long conversation [...] that we will be in touch with [facility] pharmacy to clarify what is going to be delivered to her this ,10/17/23. Complimented patient on DM self-management. Routing message back to [facility] nurses to follow up with [facility] pharmacy when they are open (currently [...] documented as of this encounter Care Teams Connie Cleaner Relationship Specialty Start Date End Date Alanna Godinez FNP [address] [place] [address] PCP - General Family Medicine 11/29/22 Wendy Hill Community Health Worker 12/30/2301/11 Christen Landis RN Contract Clerk Automobile 12/30/23 Christen Landis RN Registered Nurse Family Medicine 01/18/25 04/05/25 Wendy Hill 01/18/25 05/26/25 Mónica Billy Registered Nurse 04/05/25 05/05/25 documented as of this encounter
--- OUTSIDE RECORDS SUMMARY | 2025-06-07 13:29 | XMS_ITS | Encounter Summary ---
Author Organization [employer] Address [address] [place] [address] 7t [place] [address] Care Team Providers Care Track Production Engineer Name Role Phone Alanna Godinez Primary Care Provider [phone] Christen Landis RN Unavailable Unavailable Wendy Hill Unavailable Mónica Billy Unavailable [phone] Reason for Visit * Reason Onset Date Comments fyi 04/20/2025 Encounter Details Date Type Department Care Team ([facility] Contact Info) Description 04/20/2025 Telephone [facility] P[facility] [address] [place], [place] [phone] Alanna Godinez FNP [address] [place], [place] [phone] fyi Social History Tobacco Use Types Packs/Day Years [...] encounter Miscellaneous Notes * Telephone Encounter - Tiffani Whittaker RN - 05/10/2025 12:00 PM EDT Request sent to [facility] office with question as to why they are requesting PCP to order US as they currently see pt for thyroid. * Telephone Encounter - ANNA Velasco - 04/20/2025 2:12 PM EDT Lab Results Component Value Date TSH 1.64 06/26/2023 Please see last TSH value above and let [employer] know. This is the last info I have regarding her thyroid US/nodules: Following with Miko Cardenas - completed FNA biopsy of thyroid nodule on 10/28/23. US findings: left mid-gland, 1.2x 0.6 x 1.5cm predominantly solid, hypoechoic, not [id number], smooth margin, no echogenic foci, TI-RADS Cat 4. Pt reported during visit that Miko Cardenas had recommended Q6 month f/up imaging or surgical consult, but I do not see any records on their end regarding further follow up until the note from 9/18/25 that says will request thyroid US order from PCP. We are able to order a thyroid US as PCP office, but I am a little confused why it would not be ordered directly from Endo as they have been following her in the past for her thyroid nodule. Could you please confirm why they are requesting from PCP office. In the past, it has been a challenge to get imaging transferred from [facility] to [facility] when pt has imaging done at [facility] but sees specialist at [facility]. May be easier for specialist and pt for order to come directly from specialist office, unless there is a reason why they are unable to do so? Thanks! * Telephone Encounter - Lidia Fernandes - 04/20/2025 10:59 AM EDT Tc from Maren at [facility] endocrinology stated C Programmer Brandi rOtiz advised pt get yearly u/s of thyroid .C Programmer stated if abnormal pt can be scheduled with zipper sewing machine operator . Also ordered TFH level , if done recently requested notes to be faxed too [phone] Contact Maren at [phone] (Number of contact match with fax , that was what was given) documented in this encounter Plan of Treatment [...] documented as of this encounter Care Teams Track Production Engineer Relationship Specialty Start Date End Date Alanna Godinez FNP [address] [place] [address] PCP - General Family Medicine 11/29/22 Christen Landis, AJ [address] [place] [address] Software Project Engineer 12/30/23 Wendy Hill 01/18/25 05/26/25 Mónica Billy Registered Nurse 04/05/25 05/05/25 documented as of this encounter
--- OUTSIDE RECORDS SUMMARY | 2025-06-07 13:30 | XMS_ITS | Encounter Summary ---
Author Organization [employer] Address [address] [facility] [address] [place] [address] Care Team Providers Care Cushion Cover Inspector Name Role Phone Alanna Godinez Primary Care Provider [phone] Wendy Hill Unavailable Christen Landis RN Unavailable Unavailable Christen Landis RN Unavailable Unavailable Wendy Hill Unavailable Mónica Billy Unavailable Reason for Visit * Reason Onset Date Comments Medication Question 08/06/2023 Encounter Details Date Type Department Care Team ([facility] Contact Info) Description 08/06/2023 Telephone [facility] & PEDS [address] [place], [place] [phone] Alanna Godinez FNP [address] [place], [place] [phone] Medication Question Social History Tobacco Use Types [...] Miscellaneous Notes * Telephone Encounter - Sierra Kimball - 08/06/2023 1:38 PM EST Tc from pt requesting if provider could prescribe a medication for a sensitive stomach due to her Toes being Swollen, Infected, and causing pain. 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 Please contact pt @ [phone] documented in this encounter Plan of Treatment [...] documented as of this encounter Care Teams Cushion Cover Inspector Relationship Specialty Start Date End Date Alanna Godinez FNP [address] [place] [phone] PCP - General Family Medicine 11/29/22 Wendy Hill Community Health Worker 12/30/2301/11 Christen Landis RN Compensation And Benefits Administrator 12/30/23 Christen Landis RN Registered Nurse Family Medicine 01/18/25 04/05/25 Wendy Hill 01/18/25 05/26/25 Mónica Billy Registered Nurse 04/05/25 05/05/25 documented as of this encounter
--- OUTSIDE RECORDS SUMMARY | 2025-06-07 13:30 | XMS_ITS | Encounter Summary ---
Author Organization [employer] Address [address] [facility] [place] [address] Care Team Providers Care Elementary School Science Teacher Name Role Phone Alanna Godinez Primary Care Provider Wendy Hill Unavailable Christen Landis RN Unavailable Unavailable Christen Landis RN Unavailable Unavailable Wendy Hill Unavailable Mónica Billy Unavailable [phone] Encounter Details Date Type Department Care Team ([facility] st Contact Info) Description 06/07/2023 Orders Only [facility] MED & PEDS [address] [place], [place] [phone] Alanna Godinez FNP [address] [place], [place] [phone] Social History Tobacco Use Types Packs/Day Years [...] documented as of this encounter Care Teams [employer] Science Teacher Relationship Specialty Start Date End Date Alanna Godinez FNP [address] [place] [phone] PCP - General Family Medicine 11/29/22 Wendy Hill Community Health Worker 12/30/2301/11 Christen Landis RN Windows Consultant 12/30/23 Christen Landis RN Registered Nurse Family Medicine 01/18/25 04/05/25 Wendy Hill 01/18/25 05/26/25 Mónica Billy Registered Nurse 04/05/25 05/05/25 documented as of this encounter
--- OUTSIDE RECORDS SUMMARY | 2025-06-07 13:30 | XMS_ITS | Encounter Summary ---
Author Organization [employer] Address [address] [place] [address] Care Team Providers Care Government Sales Manager Name Role Phone Alanna Godinez ANNA Primary Care Provider [phone] Christen Landis RN Unavailable Unavailable Christen Landis RN Unavailable Unavailable Wendy Hill Unavailable Mónica Billy Unavailable [phone] Encounter Details Date Type Department Care Team (Late st Contact Info) Description 07/01/2024 Orders Only [facility] MED & PEDS [address] [place] [address] Provider, MD Emily Social History Tobacco Use [...] documented as of this encounter Care Teams Government Sales Manager Relationship Specialty Start Date End Date Alanna Godinez FNP [address] [place] [address] PCP - General Family Medicine 11/29/22 Christen Landis RN [address] [place] [address] Supervisor Metalizing 12/30/23 Christen Landis RN [address] [place] [address] Registered Nurse Family Medicine 01/18/25 04/05/25 Wendy Hill 01/18/25 05/26/25 Mónica Billy Registered Nurse 04/05/25 05/05/25 documented as of this encounter
--- OUTSIDE RECORDS SUMMARY | 2025-06-07 13:30 | XMS_ITS | Clinical Summary ---
Author Organization [employer] Address [address] [facility] [address] [place] [address] Care Team Providers Care Bank Note Designer Name Role Phone Alanna Godinez SAUSAGE MAKER Primary Care Provider [phone] Christen Landis RN Unavailable Unavailable Allergies Active Allergy Reactions Criticality Noted Date Comments Meperidine Hallucinations High 02/06/2023 Medications FREESTYLE LITE test strip 022 Active capsaicin (Zostrix) 0.025 % creamIndications :Left shoulder pain, unspecified chronicity APPLY TO THE AFFECTED AREA(S) TWICE DAILY NEEDED FOR MILD PAIN. 60 g 2 023 Active Additional Information Patient not taking.Reported on 02/04/2025 Continuous Blood Gluc Casket Upholsterer (VUELOGICStyle Logan 2 [place]) device Use to monitor blood sugar as directed 1 each 023 Active albuterol (2.5 MG/3ML) 0.083% nebulizer solutionIndicati ons:Mild intermittent asthma without complication INHALE 1 AMPULE USING A NEBULIZER EVERY 6 HOURS NEEDED FOR WHEEZING OR SHORTNESS OF BREATH 90 mL 023 Active cetirizine (ZyrTEC) 10 MG tabletIndication s:Nasal congestion Take 1 tablet (10 mg) by mouth if needed each day for allergies (nasal congestion). 90 tablet 2 024 Active acetaminophen (Tylenol 8 Hour) 650 MG ER tablet TAKE 2 TABLETS BY MOUTH EVERY 8 HOURS NEEDED. DO NOT BREAK, CRUSH, DISSOLVE OR CHEW 100 tablet 2 024 Active Additional Information Patient not taking.Reported on 02/04/2025 mometasone (Elocon) 0.1 % ointment APPLY TOPICALLY TO AFFECTED AREA(S) IN THE MORNING 45 g 024 Active fluticasone (Flonase) 50 MCG/ACT nasal sprayIndications :Nasal congestion SPRAY 1 TO 2 SPRAYS IN EACH NOSTRIL TWICE DAILY IN THE MORNING AND IN THE EVENING NEEDED FOR RHINITIS OR FOR ALLERGIES 16 g 024 Active Alcohol Swabs (Alcohol Prep) 70 % padsIndications: Type 2 diabetes mellitus without complication, with long-term current use of insulin ([facility]) USE DIRECTED 100 each 11 024 Active Blood Glucose Monitoring Suppl (FreeStyle Obion Lite) w/Device kitIndications:T ype 2 diabetes mellitus without complication, with long-term current use of insulin ([facility]) Use to test blood sugar 2-3 times daily 1 kit 024 Active Continuous Glucose Sensor (FreeStyle Logan 2 Sensor) misc Use to monitor blood sugar as directed 6 each 3 024 Active TRUEplus Lancets 33G miscIndications: Type 2 diabetes mellitus without complication, with long-term current use of insulin ([facility]) USE DIRECTED TO TEST BLOOD SUGAR 2 OR 3 TIMES DAILY 100 each 024 Active insulin glargine (Lantus SoloStar) 100 UNIT/ML penIndications:T ype 2 diabetes mellitus without complication, with long-term current use of insulin ([facility]) INJECT 20-24 UNITS SUBCUTANEOUSLY EVERY DAY DIRECTED 15 mL 3 024 Active cholecalciferol (D3-1000) 25 MCG (1000 UT) capsuleIndicatio ns:Vitamin D insufficiency TAKE 1 CAPSULE BY MOUTH EVERY MORNING 90 capsule 3 024 Active cyclobenzaprine (Flexeril) 10 MG tablet Take 10 mg by mouth if needed in the morning, at noon, and at bedtime for muscle spasms. 024 Active Ascorbic Acid (vitamin C) 500 MG tabletIndication s:Healthcare maintenance TAKE 1 TABLET BY MOUTH EVERY MORNING 90 tablet 3 025 Active vitamin E 180 MG (400 UNIT) capsuleIndicatio ns:Healthcare maintenance TAKE 1 CAPSULE BY MOUTH EVERY MORNING 90 capsule 3 025 Active insulin pen needle (Easy Touch Pen [place]) 32G x 6 mm misc USE UP TO SIX TIMES DAILY WITH INSULIN 100 each 11 025 Active Alcohol Swabs (Alcohol Prep) 70 % padsIndications: Type 2 diabetes mellitus without complication, with long-term current use of insulin ([facility]) USE DIRECTED TO TEST BLOOD SUGAR 2 OR 3 TIMES DAILY 100 each 11 025 Active insulin aspart FlexPen (NovoLOG) 100 UNIT/ML pen INJECT 4 UNITS SUBCUTANEOUSLY WITH BREAKFAST, 6 UNITS WITH LUNCH, 9 UNITS WITH DINNER, AND 2 UNITS WITH SNACKS UP TO 5 TIMES DAILY 15 mL 3 025 Active lisinopril 5 MG tabletIndication s:Primary hypertension TAKE 1 TABLET BY MOUTH EVERY MORNING 90 tablet 1 025 Active atorvastatin (Lipitor) 40 MG tablet TAKE 1 TABLET BY MOUTH EVERY EVENING 90 tablet 3 025 Active glucose blood (FREESTYLE LITE) test stripIndications :Type 2 diabetes mellitus without complication, with long-term current use of insulin ([facility]) USE DIRECTED TO TEST BLOOD SUGAR 2 OR 3 TIMES DAILY 100 strip 11 025 Active gabapentin (Neurontin) 300 MG capsuleIndicatio ns:Arthralgia of both hands,Neuropathi c pain TAKE 1 CAPSULE BY MOUTH THREE TIMES DAILY 90 capsule 3 025 Active empagliflozin (Jardiance) 25 MGIndications:Ty pe 2 diabetes mellitus without complication, with long-term current use of insulin ([facility]) TAKE 1 TABLET BY MOUTH EVERY MORNING 90 tablet 1 025 Active amoxicillin (Amoxil) 500 MG capsuleIndicatio ns:Pharyngitis, unspecified etiology Take 1 tab po bid for 10 days 20 capsule 025 Active pantoprazole (ProtoNix) 40 MG EC tablet Take 1 tablet (40 mg) by mouth before breakfast. 90 tablet 025 2024 Active levothyroxine (Synthroid, Levoxyl) 50 MCG tablet TAKE 1 TABLET BY MOUTH EVERY DAY BEFORE BREAKFAST 90 tablet 025 Active Opzelura 1.5 % creamIndications :Vitiligo APPLY TOPICALLY TO THE AFFECTED AREA(S) TWICE DAILY DIRECTED, DO NOT EXCEED 15 GRAM / WEEK 60 g 3 025 Active levothyroxine (Synthroid, Levoxyl) 50 MCG tablet TAKE 1 TABLET BY MOUTH EVERY DAY BEFORE BREAKFAST 90 tablet 025 2024 Discontinued(R eorder (will not trigger notification to Pharmacy)) Opzelura 1.5 % creamIndications :Vitiligo APPLY TOPICALLY TO THE AFFECTED AREA(S) TWICE DAILY DIRECTED, DO NOT EXCEED 15 GRAM / WEEK 60 g 3 025 2024 Discontinued Active Problems Problem Noted Date Diagnosed Date Tendinosis of right shoulder 06/28/2024 Overview (06/28/2024): 05/27/24: [facility] MRI R. Shoulder with contrast. 1. Mild-moderate supraspinatus tendinosis. Mild infraspinatus tendinosis. No measurable rotator cuff tear is seen. 2. Mild-moderate acromioclavicular arthritis. 3. Trace subacromial-subdeltoid bursitis. Assessment & Plan (09/23/2024 7:25 PM EST): Referral to [facility] for further eval and treatment. Continue symptomatic management. Assessment & Plan (06/28/2024 6:10 PM EST): Recommended referral to Ortho for further consult. Pt declines interest in any type of injection or invasive procedure at this time. Will let us know if she changes her mind in the future. Subdeltoid bursitis of right shoulder joint 07/2023 Overview (06/28/2024): 05/27/24: [facility] MRI R. Shoulder with contrast. 1. Mild-moderate supraspinatus tendinosis. Mild infraspinatus tendinosis. No measurable rotator cuff tear is seen. 2. Mild-moderate acromioclavicular arthritis. 3. Trace subacromial-subdeltoid bursitis. Assessment & Plan (01/03/2025 11:58 AM EDT): - Referral to [facility] for further eval -Shared decision to proceed with short course of oxycodone as needed for severe pain. Reviewed strict med safety and side effects. Assessment & Plan (06/28/2024 6:11 PM EST): Declines referral to Ortho at this time, would like to cont following with chiropractic Arthritis of right acromioclavicular joint 06/28 Overview (06/28/2024): 05/27/24: [facility] MRI R. Shoulder with contrast. 1. Mild-moderate supraspinatus tendinosis. Mild infraspinatus tendinosis. No measurable rotator cuff tear is seen. 2. Mild-moderate acromioclavicular arthritis. 3. Trace subacromial-subdeltoid bursitis. Assessment & Plan (04/07/2025 2:59 PM EDT): - Currently well controlled with compression sleeve and herbal teas. Cont symptomatic management. Assessment & Plan (01/12/2025 11:42 AM EDT): - Encouraged to call to schedule appt at [facility] Assessment & Plan (06/28/2024 6:12 PM EST): [...] reviewed. Vitiligo 12/04/2023 Overview (06/28/2024): Following with [facility] Derm team Did not receive much benefit with mometasone PA for Opzelura cream was approved Assessment & Plan (12/04/2023 8:40 PM EDT): Did not receive much benefit with mometasone, PA for Opzelura is pending. Cervical radiculopathy 05/27/2023 Healthcare maintenance 05/22/2023 Overview (04/07/2025): Pap: NILM, HPV neg 05/13/24. Previous 03/11/23: Pap with Dr. Chiara PERAZA HPV positive. Colpo Apr 2023 showed mild inflamed endocervical and squamous epithelium with reactive changes. Plan for co-testing 12 months. Mammo: (ultrasounds instead of XR due to pt pain) BIRADS 2 on 03/31/24 OPH: ARISTEO 07/08/24 ([facility]) LDCT: 03/19/25 LungRADS 2 Assessment & Plan (04/07/2025 3:00 PM EDT): Due for routine labs next appt Assessment & Plan (05/22/2023 7:05 AM EDT): -Pap: 03/11/23:[facility] [employer] Dr. Guadarrama, annual exam. last Pap/HIV was negative/HPV positive in 02/16, colpo biopsy/ECC was negative -Mammo ultrasounds instead of XR due to pt pain. BIRADS 2, on 02/22/23. Plan for follow up in 1 year. 03/11/23: Pap with Dr. Guadarrama - NILM HPV + 05/09/23: [facility] [employer] - Dr. Guadarrama - for colposcopy. Plan for follow up in 2 weeks to review results. Asthma-COPD overlap syndrome (CMS/HCC) HLD (hyperlipidemia) 03/13/2023 Cervical high risk HPV (human papillomavirus) te st positive 03/13/2023 Lipoma of back 03/13/2023 Pulmonary nodules 03/13/2023 Trigger middle finger of right hand 03/13/2023 Overview (07/07/2023): 02/14/23: right middle finger trigger A1 edilson release at [facility] Ortho 06/26/23: follow up with surgeon, plan for ROM exercises 20x/day Assessment & Plan (06/09/2023 8:54 PM EST): Continues with [facility] OT for rehab Planning to follow up with [facility] ortho for further eval Assessment & Plan (03/25/2023 9:16 AM EDT): Referral to [facility] OT for further assistance with rehab and [...] Plan (03/25/2023 9:17 AM EDT): Referral to [facility] location for chiropractic eval and tx per pt preference Acquired hypothyroidism 08/05/2022 Assessment & Plan (06/09/2023 8:51 PM EST): Lab Results Component Value Date TSH 1.10 07/05/2022 -Continues with levothyroxine 50mcg daily -Repeat TSH ordered, pending Foot callus 08/05/2022 Hyperthyroidism 08/05/2022 Lipoma of left upper extremity 08/05/2022 Chronic hepatitis C (CMS/HCC) 11/19/2018 Thyroid nodule 07/24/2018 Overview (12/04/2023): Following with [facility] End[facility] Assessment & Plan (12/04/2023 8:30 PM EDT): -Hx of partial thyroidectomy -2023: US thyroid with following impression: left mid-gland, 1.2x 0.6 x 1.5cm predominantly solid, hypoechoic, not [id number], smooth margin, no echogenic foci, TI-RADS Cat [...] pt called their office and spoke with cardiac cath rn, they will plan to call pt directly to schedule Assessment & Plan (09/18/2022 8:42 PM EST): -Referral to [facility] and previous surgeon placed -Discussed concens about potential damage from another FNA, would like to speak with surgeon first regarding risks/benefits Essential hypertension 01/17/2018 Mild intermittent asthma 01/17/2018 History of tobacco use 01/17/2018 Assessment & Plan (12/23/2024 9:11 AM EDT): -Former smoker - quit x 2 years. Congratulated on smoking cessation (last cigg Aug 2022) -Cigg/day: 1 pack -Age started: 16 y/o -Total years smokin y -Pack year history: 47 y -Referred to [facility] for lung CA screenin09/23/24 Assessment & Plan (09/23/2024 7:33 PM EST): -Former smoker - quit x 2 years. Congratulated on smoking cessation (last cigg Aug 2022) -Cigg/day: 1 pack -Age started: 16 y/o -Total years smokin y -Pack year history: 47 y -Referred to [facility] LDCT for lung CA screenin09/23/24 Assessment & Plan (06/09/2023 8:53 PM EST): -Cont with [facility] Pharmacy smoking cessation clinic -Congratulated on smoking cessation (last cigg Aug 2022) Assessment & Plan (02/11/2023 9:05 PM EDT): -Cont with [facility] Pharmacy smoking cessation clinic -Congratulated on smoking cessation (last cigg Aug 2022) Assessment & Plan (01/14/2023 9:30 AM EDT): -Cont with [facility] Pharmacy smoking cessation clinic -Congratulated on smoking cessation (last cigg Aug 2022) Assessment & Plan (11/05/2022 6:54 PM EDT): -Cont with [facility] Pharmacy smoking cessation clinic -Congratulated on smoking cessation (last cigg Aug 2022) Type 2 diabetes mellitus without complication Overview (04/07/2025): Lab Results Component Value Date HGBA1C 8.1 (A) 04/07/2025 HGBA1C 8.4 (A) 12/23/2024 HGBA1C 7.3 (A) 06/24/2024 HGBA1C 7.9 (A) 09/18/2023 HGBA1C 6.7 (H) 08/09/2022 HGBA1C 7.1 (H) 12/11/2021 HGBA1C 6.9 (H) 04/24/2021 -A1c goal </= 7% -Previously followed through [facility] Endo, transitioned to PCP. Now to [facility] (as of November 2023) Current medication regimen: Lantus 20-24 units at bedtime Novolog AC, sliding scale per [facility] Jardiance 25mg daily Previous meds: -CGM in place -ARISTEO at [facility] 07/08/24. No diabetic retinopathy or macular edema. Assessment & Plan (04/07/2025 2:59 PM EDT): Mild improvement compared to previous, cont with current regimen and following with specialist Assessment & Plan (01/12/2025 11:42 AM EDT): Reports that she is feeling overwhelmed with all of the appointments at [facility]. Offered CDTM program, pt declines. She will consider her options and let us know if we can assist in any way. Assessment & Plan (01/03/2025 11:59 AM EDT): Reports that she is feeling overwhelmed with all of the appointments at [facility]. She would like to be seen by our [facility] pharmacist and the CDTM clinic. Referral placed 01/03/25. Assessment & Plan (09/23/2024 7:31 PM EST): Will regenerate letter of support to continue with current brand name insulin NovoLog AC as has been working well for patient without incident or side effects. Assessment & Plan (09/18/2023 8:11 PM EST): [...] (06/09/2023 8:53 PM EST): -CGM monitoring through [facility] pharmacy Assessment & Plan (02/11/2023 9:05 PM [...] Plan (09/18/2022 8:37 PM EST): Referred to [facility] per request Resolved Problems Problem Noted Date Diagnosed Date Resolved Date Multinodular thyroid 03/13/2023 023 Tinea manus 08/24/2022 05/22/2023 Arthralgia of both hands 08/23/2022 Assessment & Plan (09/18/2022 8:41 PM EST): -Updated referral to [facility] OT to include therapy for bilateral hands [...] Encounters Date Type Department Care Team Description 06/07/2025 Refill [facility] [address] [place] [address] Alanna Godinez FNP Primary hypertension; Vitamin D insufficiency 06/02/2025 Refill [facility] [address] [place], [place] [phone] Alanna Godinez FNP Vitiligo 05/26/2025 Patient Outreach [facility] [address] [place], [place] [phone] Alanna Godinez FNP Care Coordination ([facility] Nitza Richardson f/u, program graduation ) 05/10/2025 Refill [facility] [address] [place], [place] [phone] Alanna Godinez, SAUSAGE MAKER 05/05/2025 Patient Outreach [address] [address] PhalAlanna machuca, SAUSAGE MAKER Care Management ([facility] graduation) 04/20/[address] [address] Alanna Godinez, SAUSAGE MAKER 04/20/2025 Telephone [facility] [address] [place] [address] Alanna Godinez, SAUSAGE MAKER fyi 04/20/2025 Patient Outreach [address] [address] PhalAlanna machuca, SAUSAGE MAKER Care Coordination ([facility]/W Wendy Hill, Sdoh f/u call) 04/12/[address] [address] Alanna Godinez, SAUSAGE MAKER Adhesive capsulitis of right shoulder 04/07/2025 11:15 AM EDT Office Visit [address] [address] Alanna Godinez, SAUSAGE MAKER Onychauxis (Primary Dx); Type 2 diabetes mellitus without complication, with long-term current use of insulin ([facility]); Arthritis of right acromioclavicular joint; Healthcare maintenance 04/07/2025 Travel 04/06/[address] [address] Alanna Godinez, SAUSAGE MAKER CHART PREP 04/06/2025 Patient Outreach [address] [address] Phalsven Alanna, SAUSAGE MAKER Care Coordination ([facility]/W Wendy Hill, TC #2 Sdoh f/u_lv) 03/23/2025 10:00 AM EDT Office Visit [facility] [address] [place] [id number] Marlene Garcia MD Pharyngitis, unspecified etiology (Primary Dx); Acute URI 03/23/2025 Travel 03/23/2025 Patient Outreach [facility] [address] [place] [address] Alanna Godinez, ANNA Care Coordination ([facility] f/u call) 03/19/2025 Orders Only [facility] External Provider, [facility] 03/19/2025 Telephone [facility] [address] [place] [address] Alanna Godinez FNP Referral 03/16/2025 Patient Outreach [facility] [address] [place] [address] Alanna Godinez, SAUSAGE MAKER Care Coordination ([facility]/W Nitza Richadrson f/u call_lvm) 03/12/2025 Refill [facility] [address] [place] [address] Alanna Godinez FNP Type 2 diabetes mellitus without complication, with long-term current use of insulin ([facility]) 03/07/2025 Refill [facility] [address] [place] [address] Alanna Godinez, SAUSAGE MAKER Arthralgia of both hands; Neuropathic pain from Last 3 Months Immunizations Immunization Administration Dates Next Due Hep B, adult 01/15/2019,11/19/2018,07/18/2018 Influenza injectable quadriv alent IIV4 with preservative 04/10/2019,05/23/2018 Influenza injectable quadriv alent preservative free 04/17/2023,05/16/2022,04/24/2021,05/05 Influenza, Injectable, MDCK, preservative free 04/19/2025 Influenza, seasonal, injecta ble, preservative free 04/10/2024 MMR 01/15/2025 Moderna Covid-19 Vaccine 12+ 01/08/2022,10/22/19 21,09/23/2020 Pfizer [...] Sign Reading Time Taken Comments Blood Pressure 100/70 04/07/2025 12:12 PM EDT Pulse 76 04/07/2025 12:12 PM EDT Temperature 36 C (96.8 F) 04/07/2025 12:12 PM EDT Respiratory Rate 15 04/07/2025 12:12 PM EDT Oxygen Saturation 93% 04/07/2025 12:12 PM EDT Inhaled Oxygen Concentration - - Weight 73.1 kg (161 lb 3.2 oz) 04/07/2025 12:12 PM EDT Height 154.9 cm (5' 1 ) 01/08/2025 2:20 PM EDT Body Mass Index 30.46 01/08/2025 2:20 PM EDT Plan of Treatment Health Maintenance Due Date Last Done Comments CT Colonography 1961 Dental Prophylaxis 1961 FIT DNA/Cologuard 1961 FIT 1961 FOBT 1961 HIV Screening 1961 Sigmoidoscopy 1961 Hepatitis A Vaccines (1 of 2 - Risk 2-dose series) 1980 Dental Oral Exam 05/24/2019 11/21/2018 Dental X-Ray: Bitewings 11/23/2019 11/21/2018 RSV Patients and Patients Aged 60 years or older (1 - Risk 60-74 years 1-dose series) 2021 Dental X-Ray: Full Mouth 11/22/2021 11/21/2018 COVID-19 Vaccine ( season) 2025 04/26/2023, 05/16/2022, 01/08/2022, Additional history exists Mammogram 03/31/2025 03/31/2024, 01/27, 02/22/2023, Additional history exists Cervical Cancer Screening 05/13/2025 HPV/Cotest 05/13/2025 01/02/2022, 09/03/2018 Pap Smear 05/13/2025 05/13/2024, 02/26, 01/02/2022 Depression Screening 06/24/2025 06/24/2024, 06/24/20 24 Diabetes: Hemoglobin A1C 07/07/2025 025, 12/23/2024, 06/24/2024, Additional history exists Diabetes: Foot Exam 12/31/2025 12/31/2024, 08/06/2023, 08/06/2023, Additional history exists Diabetes: Urine Protein Screening 12/31/2025 12/31/2024, 12/11/2021, 11/23/2021, Additional history exists Lipid Panel 12/31/2025 12/31/2024, 06/28, 12/11/2021, Additional history exists Alcohol/Substance Use Screening 01/08/2026 01/08/2025 Disability Screening 01/08/2026 01/08/2025 SDOH Screening 02/04/2026 02/04/2025 Lung Cancer Screening 03/20/2026 03/20/2025 Tobacco Screening 04/07/2026 04/07/2025 Eye Exam 07/08/2026 07/08/2024, 06/28, 07/08/2024, Additional history exists DTaP/Tdap/Td Vaccines (2 - Td or Tdap) 07/18/2028 07/18/2018 Colonoscopy 10/30/2028 10/30/2018 Colorectal Cancer Screening 10/30/2028 Hepatitis B Vaccines Completed 01/15/2019, 11/19/2018, 07/18/2018 Zoster Vaccines Completed 02/11/2020, 09/16/2019 Pneumococcal Vaccine: 50+ Years Completed 03/23/2022, 07/14/2019 Influenza Vaccine Completed 04/19/2025, , 04/17/2023, Additional history exists HIB Vaccines Aged Out [...] Component 8.1( 12:13 PM EDT) Melani Blount Procedures Procedure Name Priority Date/Time Associated Diagnosis Comments POCT GLUCOSE Routine 04/07/2025 12:13 PM EDT Type 2 diabetes mellitus without complication, with long-term current use of insulin ([facility]) POCT GLYCOSYLATED HEMOGLOBIN (HGB A1C) Routine 04/07/2025 12:13 PM EDT Type 2 diabetes mellitus without complication, with long-term current use of insulin ([facility]) POCT INFLUENZA A Routine 03/23/2025 10:5 6 AM EDT Acute URI POCT RAPID COVID ANTIGEN Routine 03/23/2025 10:55 AM EDT Acute URI POCT INFLUENZA B Routine 03/23/2025 10:5 5 AM EDT Acute URI POCT RAPID STREP A Routine 03/23/2025 10 :54 AM EDT Acute URI LDCT LUNG SCREENING Routine 03/20/2025 7 :55 PM EDT ALBUMIN, RANDOM URINE W/CREATININE Routine 12/31/2024 12:39 PM EDT Essential hypertension Type 2 diabetes mellitus without complication, with long-term current use of insulin ([facility]) LIPID PANEL, STANDARD Routine 12/31/2024 12:39 PM EDT Essential hypertension Type 2 diabetes mellitus without complication, with long-term current use of insulin ([facility]) HM PAP/HPV Routine 05/13/2024 3:49 PM EDT BI US BREAST COMPLETE BILATERAL Routine 03/31/2024 12:04 PM EDT THINPREP IMAGING PAP AND HPV MRNA E6/E7, WITH CT/NG, TRICHOMONAS Routine 01/02/2022 2:21 PM EDT INTRAORAL - COMPLETE SERIES OF RADIOGRAPHIC IMAGES Routine 11/21/2018 12:00 AM EDT COMPREHENSIVE ORAL EVALUATION - NEW OR ESTABLISHED PATIENT Routine 11/21/2018 12:00 AM EDT HM COLONOSCOPY Routine 10/30/2018 from Last 3 Months or Most Recently Relevant to Health Maintenance Results * (ABNORMAL) POCT glycosylated hemoglobin (Hgb A1c) (04/07/2025 12:13 PM EDT) Pathologist [facility] Hemoglobin A1C 8.1(A) 4.0 - 5.7 % QC Media Lot # [id number] Lot# Expiration Date 4,162, Blood Capillary blood specimen / Unknown 04/07/2025 12:13 PM EDT us Alanna CASTILLO POINT OF CARE TEST ENTER/EDIT ORDERABLES Final Result * (ABNORMAL) POCT glucose manually resulted (04/07/2025 12:13 PM EDT) Pathologist [facility] Glucose Blood, POC 202(A) 60 - 200 mg/dL QC Media Lot # [id number] Lot# Expiration Date [id number] Blood Capillary blood specimen / Unknown 04/07/2025 12:13 PM EDT Alanna KIMP POINT OF CARE TEST ENTER/EDIT ORDERABLES Final Result * POCT Influenza A manually resulted (03/23/2025 10:56 AM EDT) [facility] Rapid Influenza A Ag Negative Negative, Indeterminate QC Media Lot # [id number] Lot# Expiration Date 100,826 Swab Nasopharyngeal structure / Unknown 03/23/2025 10:56 AM EDT Marlene Garcia MD POINT OF CARE TEST ENTER/E DIT ORDERABLES Final Result * POCT Rapid COVID Ag (03/23/2025 10:55 AM EDT) Rapid COVID Ag Negative QC Media Lot # [id number] Lot# Expiration Date [id number] Swab 03/23/2025 10:5 5 AM EDT Marlene Garcia MD POINT OF CARE TEST ENTER/E DIT ORDERABLES Final Result * POCT Influenza B manually resulted (03/23/2025 10:55 AM EDT) [facility] Rapid Influenza B Ag Negative Negative, Indeterminate QC Media Lot # [id number] Lot# Expiration Date [id number] Swab 03/23/2025 10:5 5 AM EDT Marlene Garcia MD POINT OF CARE TEST ENTER/E DIT ORDERABLES Final Result * POCT rapid strep A manually resulted (03/23/2025 10:54 AM EDT) [facility] Rapid Strep A Screen Negative Negative, None Detected QC Media Lot # [id number] Lot# Expiration Date 120,[id number] Swab 03/23/2025 10:5 4 AM EDT Marlene Garcia MD POINT OF CARE TEST ENTER/E DIT ORDERABLES Final Result * CT Lung Screening Low dose (03/20/2025 7:55 PM EDT) Anatomical Region Laterality Modality Lung Computed Tomogra phy 03/20/2025 7:55 PM EDT Narrative 03/20/2025 7:57 PM EDT [place] [address] CT Scan Report Signed Patient: Renetta Ramirez MR# : [id number] : 1960 Acct:[id number] Age/Sex: 64 / F ADM Date: 03/19/25 Loc: HO.CT Attending Dr: Kemi Bland PA-C Ordering Physician: Kemi Bland PA-C Date of Service: 03/19/25 Procedure(s): CT lung screening Accession Number(s): [id number] cc: Kemi Bland PA-C; Alanna Godinez [facility] Report Number: [id number]: Total DLP = 55.00 mGy-cm CLINICAL HISTORY: Z87.891 - Personal history of nicotine dependence CT lung cancer screening (LDCT) Comparison: Chest CT from 03/13/2022 Technique: Axial CT images of the chest using low-dose technique. Referring provider counseled the patient on shared decision-making for LDCT screening. Additional counseling was provided on smoking cessation. Effective radiation dose total: DLP 45.1 mGycm, CTDIvol 1.5 mGy. Findings: Lung: Calcified remnants of old granulomatous processes are unchanged, including in the left lower lobe. No significant change in small solid pulmonary nodules measuring 4 mm or less in the periphery of the both lungs. Solid pulmonary nodule measures 4 mm in the lateral basal segment of the right lower lobe (imaged 100 of series 4), without significant change. Resolution of the multiple previous nodules and ground-glass opacities with a essentially resolution of the previous right lower lobe ground-glass lesions. Mild atelectasis and scarring persists. Mild bilateral emphysematous changes. 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 Other: Mild/minimal degenerative changes include imaged shoulders and imaged spine. Impression: Category 2: Benign appearance or behavior, continue annual screening This document has been electronically signed by: Simeon Noyola MD on 03/20/2025 19:55:13 Dictated By: Simeon Noyola MD Signed By: <Electronically signed by Simeon Noyola MD in OV> 03/20/251955 DD/ 54 TD/TT: 03/20/251954 Company Pilot: Procedure Note Donotuseinterpreter, Image - 03/20/[address] [address] [address] Scan Report Signed Patient: Renetta Ramirez HMR# : [id number] : 1960cct:[id number] Age/Sex: 64 / FADM Date: 03/19/25 Loc: HO.CT Attending Dr: Kemi Bland PA-C Ordering Physician: Kemi Bland PA-C Date of Service: 03/19/25 Procedure(s): CT lung screening Accession Number(s): [id number] cc: Kemi Bland PA-C; Alanna Godinez [facility] Report Number: [id number]: Total DLP = 55.00 mGy-cm CLINICAL HISTORY: Z87.891 - Personal history of nicotine dependence CT lung cancer screening (LDCT) Comparison: Chest CT from 03/13/2022 Technique: Axial CT images of the chest using low-dose technique. Referring provider counseled the patient on shared decision-making for LDCT screening. Additional counseling was provided on smoking cessation. Effective radiation dose total: DLP 45.1 mGycm, CTDIvol 1.5 mGy. Findings: Lung: Calcified remnants of old granulomatous processes are unchanged, including in the left lower lobe. No significant change in small solid pulmonary nodules measuring 4 mm or less in the periphery of the both lungs. Solid pulmonary nodule measures 4 mm in the lateral basal segment of the right lower lobe (imaged 100 of series 4), without significant change. Resolution of the multiple previous nodules and ground-glass opacities with a essentially resolution of the previous right lower lobe ground-glass lesions. Mild atelectasis and scarring persists. Mild bilateral emphysematous changes. 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 Other: Mild/minimal degenerative changes include imaged shoulders and imaged spine. Impression: Category 2: Benign appearance or behavior, continue annual screening This document has been electronically signed by: Simeon Noyola MD on 03/20/2025 19:55:13 Dictated By: Simeon Noyola MD Signed By: <Electronically signed by Simeon Noyola MD in OV> 03/20/251955 DD/ 54 TD/TT: 03/20/251954 Company Pilot: [facility] External Provider IMG CT PROCEDURES Final Result * Albumin, Random Urine W/Creatinine (12/31/2024 12:39 PM EDT) Creatinine, Urine 69.37 mg/dL [facility] Microalbumin Urine 7.0 mg/L [facility] Microalbum Creatinine Ratio Ur 10.0 <30 ug/mg cr [facility] Comment:Albumin/Creatinine R atio Reference Ranges: Normal: < 30 ug/mg creatinine Microalbuminuria: 30 - 300 ug/mg creatinineClinical Albuminuria: > 300 ug/mg creatinine Urine (Urine, Random) 12/31/2024 12:39 PM EDT 12/31/2024 1:11 PM EDT us Rl Santos MD LAB URINE ORDERABLES Final Result [facility] [address] [place] [phone] * Lipid Panel, Standard (12/31/2024 12:39 PM EDT) Triglycerides 86 <150 mg/dL [facility] Comment:Desirable Triglyceri de: less than 150 mg/dLBorderline High Triglyceride 150-199 mg/dLHigh Triglyceride: 200-499 mg/dLVery High Triglyceride: greater than or equal to 5OO mg/dL Cholesterol 132 <200 mg/dL [facility] Comment:Desirable Cholestero l: less than 200 mg/dLBorderline High Cholesterol: 200-239 mg/dLHigh Cholesterol: greater than 239 mg/dL LDL Cholesterol Calculated 68 <100 mg/dL [facility] Comment:Desirable LDL: less than 100 mg/dLNear Optimal/Above Optimal LDL: 110- 129 mg/dLBorderline High LDL: 130-159 mg/dLHigh LDL: 160-189 mg/dLVery High LDL: greater than or equal to 190 mg/dL HDL Cholesterol 47 >40 mg/dL [facility] Comment:Desirable HDL: great er than 40 mg/dL Note: This HDL assay may give artificially low results in patients with liver disease. Blood Venous blood specimen / Unknown 12/31/2024 12:39 PM EDT 12/31/2024 1:43 PM EDT us Rl Santos MD LAB BLOOD ORDERABLES Final Result [facility] [address] [place] [address] [phone] * HM PAP/HPV (05/13/2024 3:49 PM EDT) us Historical Provider HEALTH MAINTENANCE Final Result * BI US Breast Complete Bilateral (03/31/2024 12:04 PM EDT) Anatomical Region Laterality Modality Breast Bilateral Ultrasound 03/31/2024 12:0 4 PM EDT Narrative 04/01/2024 12:54 PM EDT [address] [place] [address] Ultrasound Report Signed Patient: Renetta Ramirez MR# : [id number] : 1960 Acct:[id number] Age/Sex: 63 / F ADM Date: 03/31/24 Loc: HO.MAMMO Attending Dr: Alanna Godinez [employer] Ordering Physician: Alanna Godinez Date of Service: 03/31/24 Procedure(s): US breast BI complete Accession Number(s): [id number] cc: Alanna Godinez EXAMINATION: US SCREENING ULTRASOUND [...] 04/01/24 1251 DD/ 1204 TD/TT: 03/31/24 1242 Company Pilot: Procedure Note Donotuseinterpreter, Image - [facility]/01/2024 [facility] [address] [place] [address] Ultrasound Report Signed Patient: Renetta Ramirez HMR# : [id number] : 1960cct:[id number] Age/Sex: 63 / FADM Date: 03/31/24 Loc: HO.MAMMO Attending Dr: Alanna Godinez [employer] Ordering Physician: Alanna Godinez Date of Service: 03/31/24 Procedure(s): US breast BI complete Accession Number(s): [id number] cc: Alanna Godinez EXAMINATION: US SCREENING ULTRASOUND [...] Henry Miles MD 04/01/2024 12:51 PM EDT RP Dictated By: Henry Miles MD Signed By: <Electronically signed by Henry Miles MD in OV> 04/01/24 1251 DD/ 1204 TD/TT: 03/31/24 1242 Company Pilot: Alanna Godinez [employer] IMG US PROCEDURES Final Result * (ABNORMAL) THINPREP TIS PAP AND HPV mRNA E6/E7, CT/NG, TRICH (01/02/2022 2:21 PM EDT) Chlamydia trachomatis RNA, TMA, Urogenital NOT DETECTED NOT DETECTED [facility] Clinical Information: None given [facility] COMMENT SEE COMMENT [facility] Comment: The analytical performance characteristics of this assay, when used to test SurePath(TM) specimens have been determined by [employer]. The modifications have not been cleared or approved by the FDA. This assay has been validated pursuant to the CLIA regulations and is used for clinical purposes. For additional information, please refer to https://education.[employer]/faq/GDU970 (This link is being provided for information/ educational purposes only.) COMMENT SEE COMMENT [facility] Comment: EXPLANATORY NOTE: The Pap is a screening test for cervical cancer. It is not a diagnostic test and is subject to false negative and false positive results. It is most reliable when a satisfactory sample, regularly obtained, is submitted with relevant clinical findings and history, and when the Pap result is evaluated along with historic and current clinical information. COMMENT: This Pap test has been evaluated with computer assisted technology. [facility] Blind Teacher: SEE COMMENT [facility] Comment: ALS, CT(ASCP) CT screening location: [place] [address] HPV nRNA E6/E7 Detected(A) Not Detected [facility] Comment: Methodology: Reprint Sorter-Mediated Amplification This assay detects E6/E7 viral messenger RNA (mRNA) from 14 high-risk HPV types (16,18,31,33,35,39,45,51,52,56,58,59,66,68). Cervical sources are required for HPV testing. If a vaginal source from a patient who has had a total hysterectomy with removal of cervix was submitted, please contact the testing laboratory for alternative testing options. For additional information, please refer to http://[employer]/faq/YGL904t0 (This link if provided for information/ educational purposes only.) Interpretation/Re sult: Negative for intraepithelial lesion or malignancy. [facility] LMP: NONE GIVEN [facility] Neisseria gonorrhoeae RNA, TMA, Urogenital NOT DETECTED NOT DETECTED [facility] Prev. BX: NONE GIVEN [facility] Prev. PAP: NONE GIVEN [facility] Review Blind Teacher: SEE COMMENT [facility] Comment: MPG, CT(ASCP) CT screening location: [place] [address] SOURCE: None given [facility] Statement Of Adequacy: SEE COMMENT [facility] Comment: Satisfactory for evaluation. Endocervical/transformation zone component present. Trichomonas vaginalis, QL, TMA, PAP Vial NOT DETECTED NOT DETECTED [facility] Comment: The analytical performance characteristics of this assay have been determined by [employer]. The modifications have not been cleared or approved by the FDA. This assay has been validated pursuant to the CLIA regulations and is used for clinical purposes. For additional information, please refer to http://[employer]/ faq/Trichomonastma (This link is being provided for information/ educational purposes only.) 01/02/2022 2:21 PM EDT Linda Brenner MD LAB PATHOLOGY ORDERAB LES Final Result [facility] [address] * Hm Colonoscopy (10/30/2018) Historical Provider HEALTH MAINTENANCE Final Result from Last 3 Months or Most Recently Relevant to Health Maintenance Insurance [facility] C3 DENTAL-[facility] MEDICAID STAND ADULT Care Teams Bank Note Designer Relationship Specialty Start Date End Date Alanna Godinez FNP [address] [place], [place] PCP - General Family Medicine 11/29/22 Christen Landis RN [address] [place], [place] Diesel Engine Mechanic 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
== END 2025-06-07 11:15 | disposition home or self-care (01) ==
PROVIDERS: Emergency Provider Emergency Medicine; PCP Registered Nurse
DX: S39.012A Strain of muscle, fascia and tendon of lower back, initial encounter (principal); X50.1XXA Overexertion from prolonged static or awkward postures, initial encounter; Y93.79 Activity, other specified sports and athletics; Y92.9 Unspecified place or not applicable; M62.830 Muscle spasm of back; I10 Essential (primary) hypertension; E78.5 Hyperlipidemia, unspecified; J44.9 Chronic obstructive pulmonary disease, unspecified; E11.9 Type 2 diabetes mellitus without complications
CPT/HCPCS: 99282; 99283